=== PATIENT | female | born 1995 | race Caucasian/White ===

== ENCOUNTER 2023-01-05 08:54 | Emergency (ER) | payer MEDICAID, SELFPAY ==
[2023-01-05] VITALS (7 sets, daily range): BP systolic 118–130; BP diastolic 72–82; PULSE 98; RESP 18; TEMP 36.6–36.7; O2SAT 97–100; BMI 33.7
--- NOTE | 2023-01-05 09:04 | SUR.HOLD ---
PT STATES THAT SHE HAS HAD NAUSEA, VOMITING, DIARRHEA, AND ASSOCIATED ABDOMINAL PAIN THAT STARTED AT 2 AM THIS MORNING. PT DENIES URINARY ISSUES OR D/T TUBAL LIGATION.
--- NOTE | 2023-01-05 09:07 | ED_ITS ---
HPI - Nausea/Vomiting/Diarrhea General Chief complaint: Nausea/Vomiting/Diarrhea Stated complaint: NAUSEA Time Seen by Provider: 01/05/23 08:56 Source: patient Mode of arrival: walk-in Limitations: no limitations History of Present Illness HPI Narrative: 27-year-old female presents to the emergency department for nausea vomiting and diarrhea. It started in the pharmacist hours today. Her boyfriend and her daughter recently had similar circumstances. She has not had hematemesis or fever. Related Data Previous Rx's Medication Instructions Recorded ondansetron 4 mg disintegrating 4 mg PO Q6H PRN nausea and 01/05/23 tablet vomiting #20 tabs Allergies Allergy/AdvReac Type Severity Reaction Status Date / Time morphine Allergy Unknown Verified 01/05/23 08:58 shellfish derived Allergy Unknown Verified 01/05/23 08:58 Review of Systems ROS Narrative A ten point review of systems is negative except as noted above. PFSH PFSH Social History Smoking status: Current every day smoker Exam Narrative Exam Narrative: Nurses note and vital signs reviewed and patient is not hypoxic. General: The patient appears well and in no apparent distress. Patient is resting comfortably on cart. Skin: Warm, dry, no pallor noted. There is no rash noted. Head: Normocephalic, atraumatic Eye: Normal conjunctiva, no drainage Ears, Nose, Mouth, and Throat: oral mucosa is moist. Nares patent. Cardiovascular: Regular Rate and Rhythm Respiratory: Patient is in no distress, no accessory muscle use, lungs are clear to auscultation, no wheezing, rales or rhonchi Back: non-tender GI: soft and nontender, nondistended Musculoskeletal: The patient has no evidence of calf tenderness, no pitting edema, symmetrical pulses noted bilaterally Neurological: A&O, normal speech Psychiatric: Cooperative Constitutional Vital Signs, click to edit/add: Last Vital Signs Temp 97.8 F 01/05/23 08:58 Pulse 98 H 01/05/23 08:58 Resp 18 01/05/23 08:58 BP 130/82 01/05/23 08:58 Pulse Ox 98 01/05/23 08:58 O2 Del Method Room Air 01/05/23 08:58 Course Vital Signs Vital signs: Vital Signs Temperature 97.8 F 01/05/23 08:58 Pulse Rate 98 H 01/05/23 08:58 Respiratory Rate 18 01/05/23 08:58 Blood Pressure 130/82 01/05/23 08:58 Pulse Oximetry 98 01/05/23 08:58 Oxygen Delivery Method Room Air 01/05/23 08:58 Temperature 97.8 F 01/05/23 08:58 Pulse Rate 98 H 01/05/23 08:58 Respiratory Rate 18 01/05/23 08:58 Blood Pressure 130/82 01/05/23 08:58 Pulse Oximetry 98 01/05/23 08:58 Oxygen Delivery Method Room Air 01/05/23 08:58 MDM - Nausea/Vomiting/Diarrhea MDM Narrative Medical decision making narrative: WBC is eighteen thousand. Repeat examination at 10:15 AM shows no abdominal tenderness on palpation. I do not suspect appendicitis. She's feeling improved and is able to be discharged home. Treatment diagnosis and follow-up were discussed with the patient. Differential Diagnosis Differential diagnosis: Likely food poisoning, gastroenteritis and dehydration Lab Data Attestation: I reviewed the patient's lab results. Labs: Lab Results 01/05/23 Range/Units 09:20 WBC 18.7 H (4.0-11.0) 10^3/uL RBC 5.64 H (4.20-5.40) 10^6/uL Hgb 15.8 (12.0-16.0) g/dL Hct 49.3 H (36.0-48.0) % MCV 87.4 (81.0-99.0) fL MCH 28.0 (26.7-34.0) pg MCHC 32.0 (29.9-35.2) g/dL RDW 12.6 (11.0-15.0) % Plt Count 329 (150-450) 10^3/uL MPV 10.6 (9.5-13.5) fL Neut % (Auto) 92.0 H (43.0-75.0) % Lymph % (Auto) 3.8 L (20.5-60.0) % [place] % (Auto) 3.4 (1.7-12.0) % Eos % (Auto) 0.2 L (0.9-7.0) % Baso % (Auto) 0.2 (0.2-2.0) % Neut # (Auto) 17.2 H (1.4-6.5) 10^3/uL Lymph # (Auto) 0.7 L (1.2-3.8) 10^3/uL [place] # (Auto) 0.6 (0.3-0.8) 10^3/uL Eos # (Auto) 0.0 (0.0-0.7) 10^3/uL Baso # (Auto) 0.0 (0.0-0.1) 10^3/uL Abs Immat Gran (auto) 0.07 H (0.00-0.03) 10^3/uL Imm/Tot Granulo (auto) 0.4 (0.0-0.5) % Sodium 140 (136-145) mmol/L Potassium 4.0 (3.5-5.1) mmol/L Chloride 101 (98-107) mmol/L Carbon Dioxide 27.9 (21.0-32.0) mmol/L Anion Gap 15.1 BUN 14.0 (7.0-18.0) mg/dL Creatinine 0.76 (0.55-1.02) mg/dL Est GFR ( Amer) >60 (>=60) Est GFR (Non-Af Amer) >60 (>=60) BUN/Creatinine Ratio 18.4 Glucose 131 H (74-106) mg/dL Calcium 8.9 (8.5-10.1) mg/dL Serum HCG, Qual Negative (NEGATIVE) Discharge Plan Discharge Chief Complaint: Nausea/Vomiting/Diarrhea Clinical Impression: Nausea vomiting and diarrhea Patient Disposition: Home, Self-Care Time of Disposition Decision: 10:15 Condition: Good Mode of Transportation: Private Vehicle Prescriptions / Home Meds: New ondansetron 4 mg tablet,disintegrating 4 mg PO Q6H PRN (Reason: nausea and vomiting) Qty: 20 0RF Instructions: Acute Nausea and Vomiting (ED) Stand Alone Forms: Portal Instructions Referrals: Physician,Non-Staff, MD [Primary Care Provider] - 1 week
[2023-01-05] MEDS: 0.9 % SODIUM CHLORIDE 1,000 ML 1000 ML IV (09:22)
[2023-01-05] MEDS: ONDANSETRON PF 4 MG/2 ML VIAL IV (09:22)
[2023-01-05 09:37] LABS: Basophils Percent Auto 0.2 % (0.2-2.0); Eosinophils Percent Auto 0.2 % (0.9-7.0); Hematocrit 49.3 % (36.0-48.0); Hemoglobin 15.8 g/dL (12.0-16.0); Immature Granulocytes Abs Auto 0.07 10^3/uL (0.00-0.03); Immature Granulocytes Pct Auto 0.4 % (0.0-0.5); Lymphocytes Absolute Auto 0.7 10^3/uL (1.2-3.8); Lymphocytes Percent Auto 3.8 % (20.5-60.0); Mean Corpuscular Volume 87.4 fL (81.0-99.0); Mean Platelet Volume 10.6 fL (9.5-13.5); Monocytes Absolute Auto 0.6 10^3/uL (0.3-0.8); Monocytes Percent Auto 3.4 % (1.7-12.0); Neutrophils Absolute Auto 17.2 10^3/uL (1.4-6.5); Platelet Count 329 10^3/uL (150-450); Red Blood Count 5.64 10^6/uL (4.20-5.40); Red Cell Distribution Width 12.6 % (11.0-15.0); White Blood Count 18.7 10^3/uL (4.0-11.0)
[2023-01-05 09:42] LABS: Anion Gap 15.1; BUN Creatinine Ratio 18.4; Calcium 8.9 mg/dL (8.5-10.1); Carbon Dioxide 27.9 mmol/L (21.0-32.0); Chloride 101 mmol/L (98-107); Estimated GFR (African America >60 (>=60); Estimated GFR (Non-African Ame >60 (>=60); Glucose 131 mg/dL (74-106); Sodium 140 mmol/L (136-145)
[2023-01-05 09:43] LABS: HCG Qualitative NEGATIVE (NEGATIVE)
--- OUTSIDE RECORDS SUMMARY | 2023-02-10 18:52 | XMS_ITS | CCD ---
Author Name Unknown Address [address] [place] [address] Organization [facility] Care Team Providers Care Crusher Feeder Name Role Phone JJ, DR BRIANNA Velez Primary Care Unavailable ROSALINO, DR LUIS FERNANDO Garcai Admitting Unavailabl e AIDEECK, DR LUIS FERNANDO Garcia Attending Unavailabl e ROSALINO, DR LUIS FERNANDO Garcia Consulting Unavailabl e JJ, DR BRIANNA Velez Admitting Unavailable GARDNER, DR BRIANNA Velez Attending Unavailable GARDNER, DR BRIANNA Velez Primary Care Unavailable GARDNER, DR BRIANNA Velez Consulting Unavailable JJ, DR BRIANNA Velez Primary Care Unavailable ROSALINO, DR LUIS FERNANDO Garcia Consulting Unavailabl e REINECK, DR LUIS FERNANDO Garcia Admitting Unavailabl e REINECK, DR LUIS FERNANDO Garcia Attending Unavailabl e Allergies Allergy Classification Reported Allergen(s) Allergy Type Date of Onset Reaction(s) Facility (1 source) Morphine Drug Allergy 05-18-2020 [facility] (1 source) Shellfish Drug allergy (disorder) [facility] Problems Active Problems Problem Classification Problem Date Documented Da te Episodic/Chronic Genitourinary symptoms and ill-defined conditions (3 sources) Dysuria; Translations: [DYSURIA] Onset: 06-21-2021 Episodic Substance-related disorders (1 source) Nicotine dependence, cigarettes, uncomplicated; Translations: [NICOTINE DEPEND CIGARETTES UNCOMP] Onset: 06-24-2021 Chronic Unclassified (3 sources) ENCOUNT FOR SCREENING FOR COVID-19; Translations: [ENCOUNT FOR SCREENING FOR COVID-19] Onset: 11-15-2020 Urinary tract infections (1 source) Cystitis, unspecified without hematuria; Translations: [CYSTITIS UNS WITHOUT HEMATURIA] Onset: 06-24-2021 Episodic Past or Other Problems Problem Classification Problem Date Documented Da te Episodic/Chronic Other skin disorders (4 sources) Rash and other nonspecific skin eruption; Translations: [RASH OTH NONSPECIFIC SKIN ERUPTION] Onset: 08-18-2020 Episodic Unclassified (1 source) ENCOUNT FOR SCREENING FOR COVID-19; Translations: [ENCOUNT FOR SCREENING FOR COVID-19] Onset: 10-30-2020 Results Test Name Value Interpretation Reference Range Facil ity CULTURE URINEon 06-23-2021 CULTURE URINE Isolate 1 Escherichia coli >100,000 cfu/ml of ORGANISM 1 Escherichia coli ANTIBIOTIC M.I.C RX STATUS Ampicillin >=32 R F Ampicillin/Sulbactam >=32 R F Piperacillin/Tazobactam <=4 S F Cefazolin <=4 S F Ceftazidime <=1 S F Ceftriaxone <=1 S F Ertapenem <=0.5 S F Imipenem <=0.25 S F Amikacin <=2 S F Gentamicin <=1 S F Tobramycin <=1 S F Ciprofloxacin <=0.25 S F Levofloxacin <=0.12 S F Nitrofurantoin <=16 S F Trimethoprim/Sulfamethoxazole <=20 S F Normal T [facility] Comment on above: Performed By: #### U RCX #### [facility] [address] [place] [address] Dr. Dao Tran ER URINE PROFILEon 2 Bilirubin Ql (U) Negative Normal NEGATIVE [facility] Comment on above: Performed By: #### VITALY BERMAN UMICRO #### [facility] [address] [place] [address] Dr. Dao Tran Clarity (U) CLEAR Normal CLEAR [facility] Comment on above: Performed By: #### VITALY BERMAN UMICRO #### [facility] [address] [place] [address] Dr. Dao Tran Color (U) LT. YELLOW Normal YELLOW [facility] Comment on above: Performed By: #### VITALY BERMAN UMICRO #### [facility] [address] [place] [address] Dr. Dao Tran ERUAHD A micrscopic examina tion will be performed if indicated. Normal [facility] Comment on above: Performed By: #### VITALY BERMAN UMICRO #### [facility] [address] [place] [address] Dr. Dao Tran Glucose Ql (U) Negative Normal NEGATIVE [facility] Comment on above: Performed By: #### EDILSON BERMANU UMICRO #### [facility] [address] [address] [address] Dao Tran Hemoglobin Ql (U) MODERATE Abnormal NEGATIVE [facility] Comment on above: Performed By: #### Rosie RUR PREGU UMICRO #### [facility] [address] [address] [address] Dao Tran Ketones Ql (U) 40 mg/dl Abnormal NEGATIVE [facility] Comment on above: Performed By: #### VITALY BERMAN UMICRO #### [facility] [address] [address] [address] Dao Tran LEUKOCYTES LARGE Abnormal NEGATIVE [facility] Comment on above: Performed By: #### EDILSON BERMANU UMICRO #### [facility] [address] [address] [address] Dao Tran Nitrite Ql (U) Negative Normal NEGATIVE [facility] Comment on above: Performed By: #### VITALY BERMAN UMICRO #### [facility] [address] [address] [address] Dao Tran pH (U) 7.0 [pH] Normal 5-9 The [facility] Comment on above: Performed By: #### EDILSON BERMANU UMICRO #### [facility] [address] [address] [address] Dao Tran Protein (U) [Mass/Vol] 30 mg/dL Abnormal NEGATIVE/ TRA CE [facility] Comment on above: Performed By: #### VITALY BERMAN UMICRO #### [facility] [address] [address] [address] Dao Tran SPEC GRAVITY 1.010 Normal 1.005-<=1.025 The [facility] Comment on above: Performed By: #### Rosie STUART PREGU UMICRO #### [facility] [address] [address] [address] Dao Tran UR MICRO IND INDICATED Normal [facility] Comment on above: Performed By: #### E RUR PREGU, UMICRO #### [facility] [address] [place] [address] Dr. Dao Tran Urobilinogen Qn (U) 0.2 {Marianna'U}/dL Normal 0.2 - 1. 0 [facility] Comment on above: Performed By: #### E RUR, PREGU, UMICRO #### [facility] [address] [place] [address] Dr. Dao Tran URon 06-21-2021 , QUAL Negative Normal NEGATIVE [facility] Comment on above: Performed By: #### E RUR, PREGU, UMICRO #### [facility] [address] [place] [address] Dr. Dao Tran URINE MICROSCOPIC ONLYon BACTERIA TRACE Abnormal NONE SEEN The [facility] Comment on above: Performed By: #### E RUR, PREGU, UMICRO #### [facility] [address] [place] [address] Dr. Dao Tran Bacteria identified Cx Nom (U) INDICATED Normal [facility] Comment on above: Performed By: #### E RUR, PREGU, UMICRO #### [facility] [address] [place] [address] Dr. Dao Tran CAST NONE SEEN Normal NONE SEEN [facility] Comment on above: Performed By: #### E RUR, PREGU, UMICRO #### [facility] [address] [place] [address] Dr. Dao Tran Crystals LM Nom (Urine sed) NONE SEEN Normal NONE SEE N [facility] Comment on above: Performed By: #### E RUR, PREGU, UMICRO #### [facility] [address] [place] [address] Dr. Dao Tran Epithelial cells LM Ql (Urine sed) RARE Normal N ONE SEEN /RARE [facility] Comment on above: Performed By: #### E RUR, PREGU UMICRO #### [facility] [address] [address] [address] Dao Tran MUCOUS TRACE Abnormal NONE SEEN [facility] Comment on above: Performed By: #### E RUREDILSONU UMICRO #### [facility] [address] [address] [address] Dao Tran RBC 5-10 Abnormal 0-2 [facility] Comment on above: Performed By: #### E RUVITALY Hutchison UMICRO #### [facility] [address] [address] [address] Dao Tran WBC 50-75 Abnormal NONE SEEN [facility] Comment on above: Performed By: #### E RUVITALY Hutchison UMICRO #### [facility] [address] [place] [address] Dr. Dao Tran Covid-19 PCR (CVDTB)on SARS-CoV-2 (COVID-19) RNA EDGAR+probe Ql (Unsp spec) Not detected Normal NOT DETECTED The [facility] Comment on above: Result Comment: This test is not yet approved or cleared by the [place] FDA. When there are no FDA-approved or cleared tests available, and other criteria are met, FDA can make tests available under an emergency access mechanism called an Emergency Use Authorization (EUA). The EUA for this test is supported by the [employer] of Health and Human Service's (HHS's) declaration that circumstances exist to justify the emergency use of in vitro diagnostics for the detection and/or diagnosis of the virus that causes COVID-19. This EUA will remain in effect (meaning this test can be used) for the duration of the COVID-19 declaration justifying emergency of IVDs, unless it is terminated or revoked by FDA (after which the test may no longer be used). When diagnostic testing is negative, the possibility of a false negative should be considered in the context of a patient's recent exposures and the presence of clinical signs and symptoms consistent with SARS-CoV-2. Performed By: #### C VDTBH #### [facility] [address] [place], [place] [id number] Zora Naidu Encounters Encounter Date Encounter Type Care Provider Facility Start: 06-21-2021 End: 06-21-[address] BRIANNA GARDNER Facility:[facility] Start: 10-30-2020 End: 10-31-[address] BRIANNA GARDNER Facility:[facility] Start: 08-18-2020 End: 08-18-[address] BRIANNA GARDNER Facility:[facility] Payers Date Payer Category Payer Unknown [id number] [id number] [id number] 1993 Unknown [id number] [id number] [id number] 1993 Unknown [id number] [id number] [id number] 1959 Unknown [id number] Summary Purpose Family History No Family History Records Found Advance Directives No Advanced Directives Records Found Additional Source Comments INFORMATION SOURCE (unrecogn ized section and content) DATE CREATED AUTHOR 06/24/2021 [facility] FOR RECORDS PERTAINING TO PATIENTS WHO ARE OR HAVE BEEN ENROLLED IN A CHEMICAL DEPENDENCY/SUBSTANCEABUSE PROGRAM, SOME INFORMATION MAY BE OMITTED. This clinical summary was aggregated from multiple sources. Caution should be exercised in using it in the provision of clinical care. This summary normalizes information from multiple sources, and as a consequence, information in this document may materially change the coding, format and clinical context of patient data. In addition, data may be omitted in some cases. CLINICAL DECISIONS SHOULD BE BASED ON THE PRIMARY CLINICAL RECORDS. [facility] [employer] provides no warranty or guarantee of the accuracy or completeness of information in this document.
== END 2023-01-05 10:28 | disposition home or self-care (01) ==
PROVIDERS: Emergency Provider Emergency Medicine
DX: R11.2 Nausea with vomiting, unspecified (principal); R19.7 Diarrhea, unspecified; F17.210 Nicotine dependence, cigarettes, uncomplicated
CPT/HCPCS: 36415; 80048; 84703; 85025; 96361; 96374; 99284

== ENCOUNTER 2023-02-17 14:41 | Emergency (ER) | payer MEDICAID, SELFPAY ==
[2023-02-17 14:47] VITALS: BP 117/73; PULSE 81; RESP 18; TEMP 36.7; O2SAT 98; BMI 35.5
--- NOTE | 2023-02-17 15:33 | ED.NECK1 ---
HPI - Neck Pain/Injury General Chief Complaint: Neck Pain/Injury Stated Complaint: NECK PAIN Time Seen by Provider: 02/17/23 15:00 Source: patient Mode of arrival: walk-in Limitations: no limitations History of Present Illness HPI Narrative: last night around 10pm the patient developed pain in the lower left neck. 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 She woke this morning and the pain was increased. She took Tylenol this morning. She said that as the day progressed the pain became sharper and worse. No recent fall or injury. No prior history of chronic neck pain. No cough, fever, chills, sore throat or ear pain. Related Data Previous Rx's Medication Instructions Recorded ondansetron 4 mg disintegrating 4 mg PO Q6H PRN nausea and 01/05/23 tablet vomiting #20 tabs methocarbamol 750 mg tablet 750 mg PO Q6H PRN pain #30 tabs 02/17/23 nabumetone 750 mg tablet 750 mg PO BID PRN pain #14 tabs 02/17/23 Allergies Allergy/AdvReac Type Severity Reaction Status Date / Time morphine Allergy Unknown Verified 02/17/23 14:50 shellfish derived Allergy Unknown Verified 02/17/23 14:50 PFSH PFSH Social History Smoking status: Current every day smoker Exam Narrative Exam Narrative: Nurses notes and vital signs reviewed and patient is not hypoxic. afebrile General: Well-appearing and in no apparent distress. Skin: Warm, dry, no pallor noted. No rash to neck. Head: Normocephalic, atraumatic. Neck: Supple, no meningismus. No cervical lymphadenopathy. Soft tissue tenderness along the posterolateral aspect of the left neck with tenderness extending into the superior aspect of the trapezius as well as down through the medial aspect of the trapezius to approximately the upper thoracic area. Eye: Pupils are equal, round and EOMI. No scleral icterus. Cardiovascular: Regular Rate and Rhythm without murmur, gallop or rub. Respiratory: No accessory muscle use or respiratory distress. Lungs are clear to auscultation, no wheezing, rales or rhonchi Back: No midline thoracic or lumbar vertebral tenderness. Musculoskeletal: normal upper extremity ROM, no upper extremity edema/swelling Neurological: A&O x4. No cranial nerve dysfunction observed. No truncal ataxia. Moves all extremities. Sensation intact. Psychiatric: Cooperative and interactive. Normal mood and affect. Constitutional Vital Signs, click to edit/add: Last Vital Signs Temp 98.0 F 02/17/23 14:47 Pulse 81 02/17/23 14:47 Resp 18 02/17/23 14:47 BP 117/73 02/17/23 14:47 Pulse Ox 98 02/17/23 14:47 O2 Del Method Room Air 02/17/23 14:47 Course Vital Signs Vital signs: Vital Signs Temperature 98.0 F 02/17/23 14:47 Pulse Rate 81 02/17/23 14:47 Respiratory Rate 18 02/17/23 14:47 Blood Pressure 117/73 02/17/23 14:47 Pulse Oximetry 98 02/17/23 14:47 Oxygen Delivery Method Room Air 02/17/23 14:47 Temperature 98.0 F 02/17/23 14:47 Pulse Rate 81 02/17/23 14:47 Respiratory Rate 18 02/17/23 14:47 Blood Pressure 117/73 02/17/23 14:47 Pulse Oximetry 98 02/17/23 14:47 Oxygen Delivery Method Room Air 02/17/23 14:47 MDM - Neck Pain/Injury MDM Narrative Medical decision making narrative: Patient received IM Solu-Medrol. She was discharged home with prescriptions for Relafen and Robaxin to treat her acute trapezius strain. Discharge Plan Discharge Chief Complaint: Neck Pain/Injury Clinical Impression: Acute neck pain, Strain of left trapezius muscle Patient Disposition: Home, Self-Care Time of Disposition Decision: 15:38 Prescriptions / Home Meds: New nabumetone 750 mg tablet 750 mg PO BID PRN (Reason: pain) Qty: 14 0RF methocarbamol 750 mg tablet 750 mg PO Q6H PRN (Reason: pain) Qty: 30 0RF No Action ondansetron 4 mg tablet,disintegrating 4 mg PO Q6H PRN (Reason: nausea and vomiting) Qty: 20 0RF Instructions: Muscle Strain (ED), Acute Neck Pain (ED) Stand Alone Forms: Portal Instructions Referrals: Physician,Non-Staff, MD [Primary Care Provider] - 1 week
[2023-02-17] MEDS: METHYLPREDNISOLONE SOD SUCC PF 125 MG/2 ML VIAL IM (15:47)
== END 2023-02-17 15:57 | disposition home or self-care (01) ==
PROVIDERS: Emergency Provider Emergency Medicine
DX: S46.812A Strain of other muscles, fascia and tendons at shoulder and upper arm level, left arm, initial encounter (principal); M54.2 Cervicalgia; F17.210 Nicotine dependence, cigarettes, uncomplicated; X58.XXXA Exposure to other specified factors, initial encounter
CPT/HCPCS: 96372; 99284; J2930

== ENCOUNTER 2023-05-03 10:52 | Emergency (ER) | payer MEDICAID, SELFPAY ==
[2023-05-03 10:55] VITALS: BP 137/82; PULSE 76; RESP 16; TEMP 36.8; O2SAT 95; BMI 36.7
--- OUTSIDE RECORDS SUMMARY | 2023-05-03 11:00 | XMS_ITS | CCD ---
Author Name Unknown Address [address] [facility] [address] [place] [address] Organization [facility] Care Team Providers Care Luncheonette Manager Name Role Phone JJ, DR BRIANNA Velez Primary Care Unavailable ROSALINO, DR LUIS FERNANDO Garcia Admitting Unavailabl e AIDEECK, DR LUIS FERNANDO Garcia Attending Unavailabl e ADIEECK, DR LUIS FERNANDO Garcia Consulting Unavailabl e JJ, DR BRIANNA Velez Admitting Unavailable GARDNER, DR BRIANNA Velez Attending Unavailable GARDNER, DR BRIANNA Velez Primary Care Unavailable GARDNER, DR BRIANNA Velez Consulting Unavailable JJ, DR BRIANNA Velez Primary Care Unavailable ROSALINO, DR LUIS FERNANDO Garcia Consulting Unavailabl e ROSALINO, DR LUIS FERNANDO Garcia Admitting Unavailabl e REINECK, DR LUIS FERNANDO Garcia Attending Unavailmoreno e Nathaniel Esparza Attending Unavailable Nathaniel Esparza Attending Unavailable Nathaniel Esparza Admitting Unavailable Nathaniel Esparza Attending Unavailable Niharika Blackwell Attending Unavailable Allergies Allergy Classification Reported Allergen(s) Allergy Type Date of Onset Reaction(s) Facility (2 sources) Morphine; Translations: [morphine] Drug Allergy 05-18-2020 [facility] Repository (2 sources) Shellfish; Translations: [shellfish] Drug allergy (disorder) [facility] Repository Problems Active Problems Problem Classification Problem [...] Name Value Interpretation Reference Range Facil ity CBC w/ Auto Diffon 4 Basophils/100 WBC (Bld) 0.7 % Normal 0.0-2.0 [facility] Comment on above: Performed By: #### 5 [id number], 2404587, 3599479, 5768088, 29619229, 4540783, 88280877 #### [facility] [address] [place] [address] Basophils/Leukocyte s Auto (Bld) [Pure # fraction] 0.0 E9/L Normal 0.0-0.2 [facility] Comment on above: Performed By: #### 5 [id number], 1564205, 3122131, 8360307, 79793998, 8687748, 13381385 #### [facility] [address] [place] [address] Eosinophils (Bld) [#/Vol] 0.1 E9/L Normal 0.0-0.5 [facility] Comment on above: Performed By: #### 5 10835769, 4768591, 0640889, 0788688, 19213152, 9679171, 38488119 #### [facility] [address] [place] [address] Eosinophils/100 WBC (Bld) 1.4 % Normal 0.0-8.0 [facility] Comment on above: Performed By: #### 5 18085882, 8677238, 2439326, 1001920, 45964496, 6251473, 15129436 #### [facility] [address] [place] [address] Erythrocyte distribution width (RBC) [Ratio] 14.4 % High 10.9-14.2 [facility] Comment on above: Performed By: #### 5 42926957, 5760533, 8573268, 8563260, 32704319, 6527751, 29348884 #### [facility] [address] [place] [address] Hematocrit (Bld) [Volume fraction] 41.0 % Normal 34.0-46.0 [facility] Comment on above: Performed By: #### 5 [id number], 3187190, 4524095, 9582059, 95468162, 5324676, 70262116 #### [facility] [address] [place] [address] Hemoglobin (Bld) [Mass/Vol] 13.4 g/dL Normal 12.0-16.0 [facility] Comment on above: Performed By: #### 5 48126647, 3313248, 5179427, 9078059, 66475450, 5490082, 91747793 #### [facility] [address] [place] [address] Lymphocytes (Bld) [#/Vol] 1.8 E9/L Normal 1.0-4.0 [facility] Comment on above: Performed By: #### 5 41138944, 8238167, 8817684, 5131639, 38762495, 8571704, 89428536 #### [facility] [address] [place] [address] Lymphocytes/100 WBC (Bld) 29.9 % Normal 14.0-50.0 [facility] Comment on above: Performed By: #### 5 19425003, 7177260, 5948600, 0950409, 04668736, 7782618, 08959258 #### [facility] [address] [place] [address] MCH (RBC) [Entitic mass] 27.4 pg Normal 27.0-34.0 [facility] Comment on above: Performed By: #### 5 92663150, 0958242, 3145980, 2177912, 57930650, 0159979, 54836468 #### [facility] [address] [place] [address] MCHC (RBC) [Mass/Vol] 32.7 g/dL Normal 31.4-36.0 [facility] Comment on above: Performed By: #### 5 64365768, 7767539, 9750255, 8696776, 46235109, 7546684, 99320225 #### [facility] [address] [place] [address] MCV (RBC) [Entitic vol] 83.6 fL Normal 80.0-100.0 [facility] Comment on above: Performed By: #### 5 83994468, 2471008, 6390287, 6700346, 92484190, 4135936, 07222197 #### [facility] [address] [place] [address] Monocytes (Bld) [#/Vol] 0.5 E9/L Normal 0.2-1.0 [facility] Comment on above: Performed By: #### 5 32681471, 1477518, 6542859, 3028335, 10288108, 6513043, 85137277 #### [facility] [address] [place] [address] Neutrophils (Bld) [#/Vol] 3.6 E9/L Normal 2.0-7.5 [facility] Comment on above: Performed By: #### 5 80104850, 8657298, 9942318, 6791413, 21229881, 6658781, 68638502 #### [facility] [address] [place] [address] Neutrophils/100 WBC (Bld) 60.1 % Normal 36.0-75.0 [facility] Comment on above: Performed By: #### 5 35088995, 3968883, 9416236, 3754983, 43508019, 7336809, 11779529 #### [facility] [address] [place] [address] Platelet 288.0 E9/L Normal 150.0-500.0 [facility] Comment on above: Performed By: #### 5 70487924, 0333294, 9986133, 4059299, 93789008, 3581127, 52648227 #### [facility] [address] [place] [address] Platelet mean volume (Bld) [Entitic vol] 9.4 fL Normal 6.4-10.8 [facility] Comment on above: Performed By: #### 5 50473199, 2266120, 5584266, 4312910, 76968046, 6563820, 52513304 #### [facility] [address] [place], [place] [address] RBC (Bld) [#/Vol] 4.9 E12/L Normal 4.3-5.9 [facility] Comment on above: Performed By: #### 5 45858941, 1893100, 6070946, 2105206, 97611807, 2588402, 61238714 #### [facility] [address] [place] [address] WBC corrected for nucl RBC Auto (Bld) [#/Vol] 6.0 E9/L Normal 4.0-11.0 [facility] Comment on above: Performed By: #### 5 94960521, 6301688, 9078628, 3307974, 01378699, 5621246, 03081222 #### [facility] [address] [place], [place] [address] CMPon 04-28-2023 Albumin [Mass/Vol] 4.2 g/dL Normal 3.3-5.0 [facility] Comment on above: Performed By: #### 5 40269309, 8057442, 8195447, 3628592, 34319705, 2917409, 87611834 #### [facility] [address] [place] [address] Albumin/Globulin (S) [Mass conc ratio] 1.5 Normal 1.1-2.2 [facility] Comment on above: Performed By: #### 5 53247698, 8437820, 2224716, 1121776, 60453467, 9952153, 35085315 #### [facility] [address] [place] [address] ALP [Catalytic activity/Vol] 66 Int._Unit/L Normal 21-98 [facility] Comment on above: Performed By: #### 5 53988117, 4990467, 7154884, 5344298, 76470107, 1891655, 66492823 #### [facility] [address] [place] [address] ALT No additional P-5'-P [Catalytic activity/Vol] 18 Int._Unit/L Normal 6-46 [facility] Comment on above: Performed By: #### 5 88736162, 3752679, 4042504, 5806386, 24058995, 9611136, 34772018 #### [facility] [address] [place] [address] Anion gap [Moles/Vol] 11 mmol/L Normal 6-16 [facility] Comment on above: Performed By: #### 5 33488626, 9979368, 3112273, 0647434, 71388375, 1017877, 59536733 #### [facility] [address] [place] [address] AST [Catalytic activity/Vol] 14 Int._Unit/L Normal 5-43 [facility] Comment on above: Performed By: #### 5 25228777, 6246703, 7147890, 1275560, 61442386, 1754253, 21487667 #### [facility] [address] [place] [address] Bilirubin [Mass/Vol] 0.3 mg/dL Normal 0.0-1.1 [facility] Comment on above: Performed By: #### 5 60830401, 4262515, 0306419, 9227743, 21241240, 0202587, 81835772 #### [facility] [address] [place] [address] Calcium [Mass/Vol] 8.8 mg/dL Low 8.9-11.1 [facility] Comment on above: Performed By: #### 5 10709356, 4231065, 2748952, 4937346, 70895941, 2930060, 27266846 #### [facility] [address] [place] [address] Chloride [Moles/Vol] 109 mmol/L Normal 101-111 [facility] Comment on above: Performed By: #### 5 18730128, 6518510, 9001176, 6942694, 75260825, 1012323, 41522354 #### [facility] [address] [place] [address] CO2 [Moles/Vol] 20 mmol/L Low 21-31 [facility] Comment on above: Performed By: #### 5 65974739, 5562383, 4872369, 8294210, 67319798, 7735885, 26111062 #### [facility] [address] [place] [address] Creatinine [Mass/Vol] 0.6 mg/dL Normal 0.5-1.3 [facility] Comment on above: Performed By: #### 5 20325657, 4516893, 9051787, 6288876, 50166433, 6573672, 81918774 #### [facility] [address] [place] [address] Globulin (S) [Mass/Vol] 2.8 g/dL Normal 1.4-4.0 [facility] Comment on above: Performed By: #### 5 98905805, 7833825, 2990855, 0995248, 96134521, 9793857, 90484111 #### [facility] [address] [place] [address] Glucose [Mass/Vol] 95 mg/dL Normal 55-199 [facility] Comment on above: Performed By: #### 5 39236356, 4431763, 4921790, 8591190, 39549623, 7269846, 05750217 #### [facility] [address] [place] [address] Potassium [Moles/Vol] 4.2 mmol/L Normal 3.5-5.3 [facility] Comment on above: Performed By: #### 5 67428485, 6120765, 3604372, 5340245, 08238877, 4778988, 63860598 #### [facility] [address] [place] [address] Protein [Mass/Vol] 7.0 g/dL Normal 6.0-7.8 [facility] Comment on above: Performed By: #### 5 17688933, 4328441, 6044288, 2619969, 97131700, 5433016, 09137445 #### [facility] [address] [place] [address] Sodium [Moles/Vol] 136 mmol/L Normal 135-145 [facility] Comment on above: Performed By: #### 5 91828878, 6663500, 3893719, 1518921, 47893424, 4861808, 41953735 #### [facility] [address] [place] [address] Urea nitrogen [Mass/Vol] 7 mg/dL Normal 5-21 [facility] Comment on above: Performed By: #### 5 91333784, 7277848, 3798112, 7688878, 11946551, 3203849, 51685609 #### [facility] [address] [place] [address] Urea nitrogen/Creatinine [Mass ratio] 12 No Units Normal 10-20 [facility] Comment on above: Performed By: #### 5 94091441, 4290889, 8809079, 1269124, 16604680, 4406691, 07189998 #### [facility] [address] [place] [address] [facility] Medicine Office/Clini c Noteon 04-28-2023 Family Medicine Office/Clinic Note HPI Staff Pearson is a 27 year old female [facility] Establish Care: History:anxiety,bipol ar, depression, anemia, HSV2, sleep disorder Any previous diagnosis: Anemia History of seeing any specialist: When was your last doctors visit: early 2022 Last provider: [facility] Any recent labs: last year Health Maintenance UTD: Colonoscopy: none Mammogram: had one, FCBD Pelvic/Pap: 2022 [place] flu: refused Acute: lump inside left wrist, painful Current issues/complaints: Wanting to R/O MS she feels legs got weaker last 2 years, hands don't close well, had aunt with it and she's concerned Also she is anemic and hopes that might be the weakness and issues she's having. Supposed to be on iron but when moved from [place] didn't get meds to continue treating the anemia ( was on ferrous sulfate 325mg) History of Present Illness - Here to establish care. Hx of anemia, not being treated Uses [facility] for mental health Concerned for all for extremities being numb and weak. Physical Exam Vitals & Measurements T: 36.9 ?C(Temporal Artery) HR: 76(Peripheral) RR: 16 BP: 124/82 SpO2: 98% HT: 67 in HT: 169.6 cm WT: 103.7 kg WT: 228.14 lb BMI: 36.05 General: alert, no acute distress ENMT: oral mucosa moist, Cardiovascular: regular rate and rhythm, normal peripheral perfusion Respiratory: Lungs CTA, respirations non labored Extremities: no deformity, no trauma Neurological: oriented x 4, LOC appropriate for age, CN II-XII intact, motor strength equal & normal bilaterally, speech normal, Unsure if there is generalized weakness with drywall finishing foreman strength. Abdomen: Soft, Nontender, Non-distended, + BS Assessment/Plan 1. Bipolar disorder, unspecified (F31.9: Bipolar disorder, unspecified) - Not on meds. - Pt states she is controlled but having anger issues again. - Would like counseling Ordered: CBC w/ Auto Diff Comprehensive Metabolic Panel EMG Bilateral Lower Extremity (BLE) EMG Bilateral Upper Extremity (BUE) [place] [facility] Iron Level TSH With T4fr Reflex Vitamin D 25 Hydroxy 2. Depression (F32.A: Depression, unspecified) - As above - Uses [facility] for this Ordered: CBC w/ Auto Diff Comprehensive Metabolic Panel EMG Bilateral Lower Extremity (BLE) EMG Bilateral Upper Extremity (BUE) [place] [facility] [place] Ambulatory Referral Iron Level TSH With T4fr Reflex Vitamin D 25 Hydroxy 3. Anxiety (F41.9: Anxiety disorder, unspecified) - As above Ordered: CBC w/ Auto Diff Comprehensive Metabolic Panel EMG Bilateral Lower Extremity (BLE) EMG Bilateral Upper Extremity (BUE) [place] [facility] [place] Ambulatory Referral Iron Level TSH With T4fr Reflex Vitamin D 25 Hydroxy 4. Vitamin D deficiency (E55.9: Vitamin D deficiency, unspecified) - Will check levels today Ordered: CBC w/ Auto Diff Comprehensive Metabolic Panel EMG Bilateral Lower Extremity (BLE) EMG Bilateral Upper Extremity (BUE) [place] [facility] Ambulatory Referral Iron Level TSH With T4fr Reflex Vitamin D 25 Hydroxy 5. Numbness and tingling (R20.0: Anesthesia of skin) - Unsure is this is related to the anemia - Being in all 4 extremities, we will do an EMG Ordered: CBC w/ Auto Diff Comprehensive Metabolic Panel EMG Bilateral Lower Extremity (BLE) EMG Bilateral Upper Extremity (BUE) Fer[place]in [facility] [place] Ambulatory Referral Iron Level TSH With T4fr Reflex Vitamin D 25 Hydroxy 6. Sleep disorder (G47.9: Sleep disorder, unspecified) - Stable Ordered: CBC w/ Auto Diff Comprehensive Metabolic Panel Ferritin Iron Level TSH With T4fr Reflex Vitamin D 25 Hydroxy 7. Herpes simplex type 2 infection (B00.9: Herpesviral infection, unspecified) - No outbreak but found on blood test Ordered: CBC w/ Auto Diff Comprehensive Metabolic Panel Ferritin Iron Level TSH With T4fr Reflex Vitamin D 25 Hydroxy 8. BMI 36.0-36.9,adult (Z68.36: Body mass index [BMI] 36.0-36.9, adult) - Bmi education given Ordered: Body Mass Index (BMI) documented 3008F CBC w/ Auto Diff Comprehensive Metabolic Panel Current tobacco smoker 1034F Ferritin Influenza immunization status assessed 1030F Iron Level Most recent diastolic blood pressure 80-89 mm Hg 3079F Systolic BP <130 mm Hg (Most Recent) 3074F TSH With T4fr Reflex Vitamin D 25 Hydroxy 9. Class 1 obesity due to excess calories in adult (E66.09: Other obesity due to excess calories) - Diet and exercise advised Ordered: Body Mass Index (BMI) documented 3008F CBC w/ Auto Diff Comprehensive Metabolic Panel Current tobacco smoker 1034F Ferritin Influenza immunization status assessed 1030F Iron Level Most recent diastolic blood pressure 80-89 mm Hg 3079F Systolic BP <130 mm Hg (Most Recent) 3074F TSH With T4fr Reflex Vitamin D 25 Hydroxy 10. Vaping-related disorder (U07.0: Vaping-related disorder) - Please stop vaping Orde (more content not included)... Normal [facility] Comment on above: Result Comment: Elec tronically Signed By: Isaias SHEEHAN, Nathaniel Everett\.br\Date and Time Signed: 04/28/23 10:10 EST Ferritinon 04-28-2023 Ferritin [Mass/Vol] 12 ng/mL Normal 11-307 [facility] Comment on above: Performed By: #### 5 [id number], 2347558, 3142607, 1212004, 57727383, 8885726, 18391469 #### [facility] [address] [place] [address] Formson 04-28-2023 Forms [id number] Normal [facility] Ironon 04-28-2023 Iron [Mass/Vol] 114 microgram/dL Normal 35-153 [facility] Comment on above: Performed By: #### 5 15448418, 0214578, 1779763, 4143279, 89988026, 0491419, 96158408 #### [facility] [address] [place] [address] Patient Educationon 04-28-19 24 Patient Education Nutrition BMI for Adults What is BMI? Body mass index (BMI) is a number that is calculated from a person's weight and height. BMI can help estimate how much of a person's weight is composed of fat. BMI does not measure body fat directly. Rather, it is an alternative to procedures that directly measure body fat, which can be difficult and expensive. BMI can help identify people who may be at higher risk for certain medical problems. What are BMI measurements used for? BMI is used as a screening tool to identify possible weight problems. It helps determine whether a person is obese, overweight, a healthy weight, or underweight. BMI is useful for: ? Identifying a weight problem that may be related to a medical condition or may increase the risk for medical problems. ? Promoting changes, such as changes in diet and exercise, to help reach a healthy weight. BMI screening can be repeated to see if these changes are working. How is BMI calculated? BMI involves measuring your weight in relation to your height. Both height and weight are measured, and the BMI is calculated from those numbers. This can be done either in [place] or metric measurements. Note that charts and online BMI calculators are available to help you find your BMI quickly and easily without having to do these calculations yourself. To calculate your BMI in [place] measurements: 1. Measure your weight in pounds (lb). 2. Multiply the number of pounds by 703. ? For example, for a person who weighs 180 lb, multiply that number by 703, which equals 126,540. 3. Measure your height in inches. Then multiply that number by itself to get a measurement called inches squared. ? For example, for a person who is 70 inches tall, the inches squared measurement is 70 inches x 70 inches, which equals 4,900 inches squared. 4. Divide the total from step 2 (number of lb x 703) by the total from step 3 (inches squared): 126,540 ? 4,900 = 25.8. This is your BMI. To calculate your BMI in metric measurements: 1. Measure your weight in kilograms (kg). 2. Measure your height in meters (m). Then multiply that number by itself to get a measurement called meters squared. ? For example, for a person who is 1.75 m tall, the meters squared measurement is 1.75 m x 1.75 m, which is equal to 3.1 meters squared. 3. Divide the number of kilograms (your weight) by the meters squared number. In this example: 70 ? 3.1 = 22.6. This is your BMI. What do the results mean? BMI charts are used to identify whether you are underweight, normal weight, overweight, or obese. The following guidelines will be used: ? Underweight: BMI less than 18.5. ? Normal weight: BMI between 18.5 and 24.9. ? Overweight: BMI between 25 and 29.9. ? Obese: BMI of 30 or above. Keep these notes in mind: ? Weight includes both fat and muscle, so someone with a muscular build, such as an athlete, may have a BMI that is higher than 24.9. In cases like these, BMI is not an accurate measure of body fat. ? To determine if excess body fat is the cause of a BMI of 25 or higher, further assessments may need to be done by a health care provider. ? BMI is usually interpreted in the same way for men and women. Where to find more information For more information about BMI, including tools to quickly calculate your BMI, go to these websites: ? Centers for Disease Control and Prevention: www.cdc.gov ? [place] Heart Association: www.heart.org ? National Heart, Lung, and Blood [place]: www.nhlbi.nih.gov Summary ? Body mass index (BMI) is a number that is calculated from a person's weight and height. ? BMI may help estimate how much of a person's weight is composed of fat. BMI can help identify those who may be at higher risk for certain medical problems. ? BMI can be measured using [place] measurements or metric measurements. ? BMI charts are used to identify whether you are underweight, normal weight, overweight, or obese. This information is not intended to replace advice given to you by your health care provider. Make sure you discuss any questions you have with your health care provider. Document Revised: 11/02/2019 Document Reviewed: 09/09/2019 [employer] Patient Education ? 2022 [employer] Normal [facility] TSH With T4fr Reflexon 04-27 TSH Qn 1.55 m[IU]/L Normal 0.34-5.60 [facility] Comment on above: Performed By: #### 5 [id number], 0849957, 4521913, 9141534, 61217636, 4297726, 73791381 #### [facility] [address] [place] [address] Vitamin D 25 Hydroxyon 04-27 25-hydroxyvitamin D3 [Mass/Vol] 14.3 ng/mL Low 30.0-100.0 [facility] Comment on above: Performed By: #### 5 [id number], 1347946, 2612441, 9339126, 75299167, 7135079, 00574482 #### [facility] [address] [place] [address] eGFRon 04-28-2023 eGFR 124 mL/min/1.73 m2 Normal >=59 [facility] Comment on above: Order Comment: Order added by Discern Expert. Performed By: #### 5 53213850, 6938295, 2668437, 9452905, 19382011, 3182280, 92986089 #### [facility] [address] [place] [address] CULTURE URINEon 06-23-2021 CULTURE URINE Isolate 1 Escherichia coli >100,000 cfu/ml of ORGANISM 1 Escherichia coli ANTIBIOTIC M.I.C RX STATUS Ampicillin >=32 R F Ampicillin/Sulbactam >=32 R F Piperacillin/Tazobact am <=4 S F Cefazolin <=4 S F Ceftazidime <=1 S F Ceftriaxone <=1 S F Ertapenem <=0.5 S F Imipenem <=0.25 S F Amikacin <=2 S F Gentamicin <=1 S F Tobramycin <=1 S F Ciprofloxacin <=0.25 S F Levofloxacin <=0.12 S F Nitrofurantoin <=16 S F Trimethoprim/Sulfamet hoxazole <=20 S F Normal [facility] Comment on above: Performed By: #### U RCX #### [facility] [address] [place] [address] Dr. Dao Tran ER URINE PROFILEon 2 Bilirubin Ql (U) Negative Normal NEGATIVE [facility] Comment on above: Performed By: #### E VITALY STUART UMICRO #### [facility] [address] [place] [address] Dr. Dao Tran Clarity (U) CLEAR Normal CLEAR [facility] Comment on above: Performed By: #### E VITALY STUART UMICRO #### [facility] [address] [place] [address] Dr. Dao Tran Color (U) LT. YELLOW Normal YELLOW [facility] Comment on above: Performed By: #### E EDILSON STUARTU UMICRO #### [facility] [address] [place] [address] Dr. Dao Tran ERUAHD A micrscopic examination will be performed if indicated. Normal [facility] Comment on above: Performed By: #### E RUR, PREGU, UMICRO #### [facility] [address] [place] [address] Dr. Dao Tran Glucose Ql (U) Negative Normal NEGATIVE [facility] Comment on above: Performed By: #### E RUR, PREGU, UMICRO #### [facility] [address] [address] [address] Dao Tran Hemoglobin Ql (U) MODERATE Abnormal NEGATIVE [facility] Comment on above: Performed By: #### E RUR, PREGU, UMICRO #### [facility] [address] [place] [address] Dr. Dao Tran Ketones Ql (U) 40 mg/dl Abnormal NEGATIVE [facility] Comment on above: Performed By: #### E RUR, PREGU, UMICRO #### [facility] [address] [place] [address] Dr. Dao Tran LEUKOCYTES LARGE Abnormal NEGATIVE [facility] Comment on above: Performed By: #### E RUR, PREGU, UMICRO #### [facility] [address] [place] [address] Dr. Dao Tran Nitrite Ql (U) Negative Normal NEGATIVE [facility] Comment on above: Performed By: #### E RUR, PREGU, UMICRO #### [facility] [address] [place] [address] Dr. Dao Tran pH (U) 7.0 [pH] Normal 5-9 [facility] Comment on above: Performed By: #### E RUR, PREGU, UMICRO #### [facility] [address] [address] [address] Dao Tran Protein (U) [Mass/Vol] 30 mg/dL Abnormal NEGATIVE/ TRACE [facility] Comment on above: Performed By: #### E RUR, PREGU, UMICRO #### [facility] [address] [place] [address] Dr. Dao Tran SPEC GRAVITY 1.010 Normal 1.005-<=1.025 [facility] Comment on above: Performed By: #### E RUR, PREGU, UMICRO #### [facility] [address] [place] [address] Dr. Dao Tran UR MICRO IND INDICATED Normal [facility] Comment on above: Performed By: #### E RUR, PREGU, UMICRO #### [facility] [address] [place] [address] Dr. Dao Tran Urobilinogen Qn (U) 0.2 {Marianna'U}/dL Normal 0.2 - 1. 0 [facility] Comment on above: Performed By: #### E RUR, PREGU, UMICRO #### [facility] [address] [place] [address] Dr. Dao Tran URon 06-21-2021 , QUAL Negative Normal NEGATIVE [facility] Comment on above: Performed By: #### E RUR, PREGU, UMICRO #### [facility] [address] [place] [address] Dr. Dao Tran URINE MICROSCOPIC ONLYon BACTERIA TRACE Abnormal NONE SEEN [facility] Comment on above: Performed By: #### E RUR, PREGU, UMICRO #### [facility] [address] [place] [address] Dr. Dao Tran Bacteria identified Cx Nom (U) INDICATED Normal [facility] Comment on above: Performed By: #### E RUR, PREGU, UMICRO #### [facility] [address] [place] [address] Dr. Dao Tran CAST NONE SEEN Normal NONE SEEN [facility] Comment on above: Performed By: #### E RUR, PREGU, UMICRO #### [facility] [address] [place] [address] Dr. Dao Tran Crystals LM Nom (Urine sed) NONE SEEN Normal NONE SEEN [facility] Comment on above: Performed By: #### E RUR, PREGU, UMICRO #### [facility] [address] [place] [address] Dr. Dao Tran Epithelial cells LM Ql (Urine sed) RARE Normal NONE SEEN /RARE [facility] Comment on above: Performed By: #### E VITALY STUART UMICRO #### [facility] [address] [place] [address] Dr. Dao Tran MUCOUS TRACE Abnormal NONE SEEN [facility] Comment on above: Performed By: #### E VITALY STUART UMICRO #### [facility] [address] [address] [address] Dao Tran RBC 5-10 Abnormal 0-2 [facility] Comment on above: Performed By: #### E VITALY STUART UMICRO #### [facility] [address] [place] [address] Dr. Dao Tran WBC 50-75 Abnormal NONE SEEN [facility] Comment on above: Performed By: #### VITALY BERMAN UMICRO #### [facility] [address] [place] [address] Dr. Dao Tran Covid-19 PCR ([facility])on SARS-CoV-2 (COVID-19) RNA EDGAR+probe Ql (Unsp spec) Not detected Normal NOT DETECTED [facility] Comment on above: Result Comment: This test is not yet approved or cleared by the [place] FDA. When there are no FDA-approved or cleared tests available, and other criteria are met, FDA can make tests available under an emergency access mechanism called an Emergency Use Authorization (EUA). The EUA for this test is supported by the [place] of Health and Human Service's (HHS's) declaration [...] consistent with SARS-CoV-2. Performed By: #### C [facility] #### [facility] [address] [place], [place] [address] Zora Naidu Encounters Encounter Date Encounter Type Care Provider Facility Start: 06-02-2023 ambulatory Nathaniel Esparza Facility :[facility] Start: 05-19-2023 ambulatory Niharika Blackwell Facility :[facility] Start: 04-28-2023 ambulatory Nathaniel Esparza Facility:[facility] Start: 04-28-2023 End: 04-29-2023 ambulatory Nathaniel Esparza [facility] Start: 04-27-2023 ambulatory Nathaniel Esparza Facility:[facility] Start: 06-21-2021 End: 06-21-[address] BRIANNA GARDNER Facility:[facility] Start: 10-30-2020 End: 10-31-[address] BRIANNA GARDNER Facility:[facility] Start: 08-18-2020 End: 08-18-[address] BRIANNA GARDNER Facility: Payers Date Payer Category Payer Private Health Insurance [id number] 1995 Unknown [id number] 2.16.84 [id number] 1995 Unknown [id number] 2.16.84 [id number] 1995 Unknown [id number] 2.16.84 [id number] 1995 Unknown [id number] 2.16.8 [id number] 1993 Unknown [id number] 2.16.8 [id number] 1993 Unknown [id number] 2.16.8 [id number] 1993 Unknown [id number] 2.16.8 [id number] 1959 Unknown [id number] Summary Purpose Family History No Family History Records FoundNo Family History Records Found Advance Directives No Advanced Directives Records FoundNo Advanced Directives Records Found Additional Source Comments INFORMATION SOURCE (unrecogn ized section and content) DATE CREATED AUTHOR 06/24/2021 [facility] DATE CREATED AUTHOR AUTHOR'S KERAGALLO ATLYNN 04/29/2023 [facility] FOR RECORDS PERTAINING TO PATIENTS WHO [...] BE BASED ON THE PRIMARY CLINICAL RECORDS. [employer] provides no warranty or guarantee of the accuracy or completeness of information in this document.
--- NOTE | 2023-05-03 11:04 | ED.BACK1 ---
HPI - Back Pain/Injury General Chief Complaint: Back Pain/Injury Stated Complaint: BACK PAIN Time Seen by Provider: 05/03/23 10:59 Source: patient Mode of arrival: walk-in History of Present Illness HPI Narrative: 27-year-old female presents to the emergency department for lower back pain. She first hurt it 6 days ago when she was screwing a headboard into a frame. She did not fall or have anything hit her in her back. She had pain for a day or 2 and then it got better but now its come back. She indicates of the midline lower back. No weakness or numbness in her legs and the pain is severe. She had been to the chiropractor last week Related Data Previous Rx's Medication Instructions Recorded nabumetone 750 mg tablet 750 mg PO BID PRN pain #14 tabs 02/17/23 acetaminophen 300 mg-codeine 30 mg 1 tab PO Q6H PRN pain 5 days #20 05/03/23 tablet tabs cyclobenzaprine 10 mg tablet 10 mg PO TID PRN muscle spasm #20 05/03/23 tabs Allergies Allergy/AdvReac Type Severity Reaction Status Date / Time morphine Allergy Unknown Verified 02/17/23 14:50 shellfish derived Allergy Unknown Verified 02/17/23 14:50 Review of Systems ROS Narrative A ten point review of systems is negative except as noted above. PFSH PFSH Social History Smoking status: Current every day smoker Exam Narrative Exam Narrative: Nurses note and vital signs reviewed and patient is not hypoxic. General: The patient appears uncomfortable. Skin: Warm, dry, no pallor noted. There is no rash noted. Head: Normocephalic, atraumatic Eye: Normal conjunctiva, no drainage Ears, Nose, Mouth, and Throat: oral mucosa is moist. Nares patent. Cardiovascular: Regular Rate and Rhythm Respiratory: Patient is in no distress, no accessory muscle use, lungs are clear to auscultation, no wheezing, rales or rhonchi Back: No bruise or rash or focal area of tenderness to palpation GI: Soft and nontender Musculoskeletal: The patient has no evidence of calf tenderness, no pitting edema, symmetrical pulses noted bilaterally Neurological: A&O, normal speech Psychiatric: Cooperative Constitutional Vital Signs, click to edit/add: Last Vital Signs Temp 98.2 F 05/03/23 10:55 Pulse 74 05/03/23 12:09 Resp 16 05/03/23 12:09 BP 118/73 05/03/23 12:09 Pulse Ox 98 05/03/23 12:09 O2 Del Method Room Air 05/03/23 10:55 Course Vital Signs Vital signs: Vital Signs Temperature 98.2 F 05/03/23 10:55 Pulse Rate 76 05/03/23 10:55 Respiratory Rate 16 05/03/23 10:55 Blood Pressure 137/82 05/03/23 10:55 Pulse Oximetry 95 05/03/23 10:55 Oxygen Delivery Method Room Air 05/03/23 10:55 Temperature 98.2 F 05/03/23 10:55 Pulse Rate 74 05/03/23 12:09 Respiratory Rate 16 05/03/23 12:09 Blood Pressure 118/73 05/03/23 12:09 Pulse Oximetry 98 05/03/23 12:09 Oxygen Delivery Method Room Air 05/03/23 10:55 MDM - Back Pain/Injury MDM Narrative Medical decision making narrative: X-ray showed no acute findings. She is feeling improved after being given IM Toradol and Norflex. She will be treated symptomatically. Treatment diagnosis and follow-up were discussed with the patient. Differential Diagnosis Differential diagnosis: Likely strain of lumbar region and other (Compression fracture) Imaging Data Lumbar x-rays: Radiologist's impression: ITS Impressions Lumbar Spine X-Ray 05/03/23 11:23 IMPRESSION: 1. No acute bone abnormality or appreciable degenerative changes. Electronically authenticated by: HANK JIMENEZ Date: 05/03/2023 12:29 Discharge Plan Discharge Stand Alone Forms: Portal Instructions Chief Complaint: Back Pain/Injury Clinical Impression: Lumbar strain Patient Disposition: Home, Self-Care Time of Disposition Decision: 12:36 Condition: Good Mode of Transportation: Private Vehicle Prescriptions / Home Meds: New acetaminophen-codeine 300-30 mg tablet 1 tab PO Q6H PRN (Reason: pain) 5 Days Qty: 20 0RF cyclobenzaprine 10 mg tablet 10 mg PO TID PRN (Reason: muscle spasm) Qty: 20 0RF No Action nabumetone 750 mg tablet 750 mg PO BID PRN (Reason: pain) Qty: 14 0RF Instructions: Muscle Strain (ED), Back Pain (ED) Referrals: Physician,Non-Staff, MD [Primary Care Provider] - 1 week
[2023-05-03] MEDS: ORPHENADRINE 60 MG/ 2 ML VIAL IM (11:19)
[2023-05-03] MEDS: KETOROLAC TROMETHAMINE 60 MG/2 ML VIAL IM (11:19)
--- NOTE | 2023-05-03 11:23 | XR_ITS ---
[id number] Patient Name: JOSE BONDS MRN: [id number] date: 1995 Sex: F Assigned Patient Location: ER Current Patient Location: ER Accession/Order Number: [id number] Exam Date: 05/03/2023 11:45 Report Date: 05/03/2023 12:29 At the request of: RACHELE JOHNSON Procedure: XR lumbar spine 2-3V EXAMINATION: XR lumbar spine 2-3V HISTORY: Atraumatic pain COMPARISON: No relevant comparison available. FINDINGS: BONES: No significant spondylosis, scoliosis, fracture, or visible bony lesion. DISC SPACES: No significant disc height narrowing, subluxation, or endplate abnormality. PARASPINOUS: Negative. No paraspinous abnormality is seen. OTHER: Right upper quadrant surgical clips suggesting cholecystectomy. XR/XR lumbar spine 2-3V IMPRESSION: 1. No acute bone abnormality or appreciable degenerative changes. Electronically authenticated by: HANK JIMENEZ Date: 05/03/2023 12:29
[2023-05-03 12:09] VITALS: BP 118/73; PULSE 74; RESP 16; O2SAT 98
== END 2023-05-03 12:43 | disposition home or self-care (01) ==
PROVIDERS: Emergency Provider Emergency Medicine
DX: S39.012A Strain of muscle, fascia and tendon of lower back, initial encounter (principal); X50.9XXA Other and unspecified overexertion or strenuous movements or postures, initial encounter; F17.210 Nicotine dependence, cigarettes, uncomplicated; Z79.899 Other long term (current) drug therapy
CPT/HCPCS: 72100; 96372; 99284

== ENCOUNTER 2024-12-07 19:05 | Emergency (ER) | payer MEDICAID, SELFPAY ==
--- OUTSIDE RECORDS SUMMARY | 2024-12-07 19:10 | XMS_ITS | Encounter Summary ---
Author Organization [facility] Address [address] [place] [address] Care Team Providers Care Hydraulic Press Operator Name Role Phone Nathaniel Esparza MD Primary Care Provider [phone] Encounter Details Date Type Department Care Team (Late Contact Info) Description 10/13/2023 Orders Only [facility] [address] [facility] D Medical [address] [address] Keturah Sung MA Social History Tobacco Use Types Packs/Day Years Used Date Smoking Tobacco: Some Days Cigarettes 0.3 15 Smokeless Tobacco: Never Alcohol Use Standard Drinks/Week Comments Not Currently 0 (1 standard drink = 0.6 oz pur e alcohol) Comments No Sex and Gender Information Value Date Recorded Sex Assigned at Not on file Legal Sex Female 11:31 AM EDT Gender Identity Not on file Sexual Orientation Not on file documented as of this encounter Plan of Treatment Upcoming Encounters Date Type Department Care Team (Late Contact Info) Description 07/31/2025 2:45 PM EDT Office Visit [facility] [address] [facility] D Medical [address] [address] Naima Bruce DO [address] [address] documented as of this encounter Visit Diagnoses Not on filedocumented in this encounter Care Teams Hydraulic Press Operator Relationship Specialty Start Date End Date Nathaniel Esparza MD [address] [place] [address] PCP - General Family Medicine 09/17/23 documented as of this encounter
--- OUTSIDE RECORDS SUMMARY | 2024-12-07 19:10 | XMS_ITS | Clinical Summary ---
Author Organization [facility] Address [address] [place] [address] Care Team Providers Care Pattern Illustrator Name Role Phone Nathaniel Esparza MD Primary Care Provider [phone] Allergies Active Allergy Reactions Criticality Noted Date Comments Morphine Hives High 04/11/2020 hives Medications cholecalciferol (Vitamin D-3) 25 MCG (1000 UT) tablet Refills(s ) 0 06/02/2023 Active Family History Medical History Relation Name Comments Asthma Brother Mayur Diabetes Father Miguel Hypertension Father Miguel Diabetes Maternal Grandfather Gera Cancer Maternal Grandmother Bertha Diabetes Maternal Grandmother Bertha Cancer Mother Montserrat Hypertension Mother Montserrat bladder cancer Mother Montserrat Diabetes Paternal Grandfather Calvin Diabetes Paternal Grandmother Jaye Cancer Sister Billie Thyroid disease Sister Billie Relation Name Status Comments Brother Mayur Father Miguel Alive Maternal Grandfather Gera Maternal Grandmother Bertha Mother [place]at Alive Paternal Grandfather Calvin Paternal Grandmother Jaye Sister Billie Social History Tobacco Use Types Packs/Day Years Used Date Smoking Tobacco: Some Days Cigarettes 0.3 15 Smokeless Tobacco: Never Tobacco Cessation:Ready to Q uit: Not Asked; Counseling Given: Not Answered Alcohol Use Standard Drinks/Week Comments Not Currently 0 (1 standard drink = 0.6 oz pur e alcohol) Comments No Sex and Gender Information Value Date Recorded Sex Assigned at Not on file Legal Sex Female 11:31 AM EDT Gender Identity Not on file Sexual Orientation Not on file Last Filed Vital Signs Vital Sign Reading Time Taken Comments Blood Pressure 112/76 07/28/2024 9:27 AM EDT Pulse - - Temperature - - Respiratory Rate - - Oxygen Saturation - - Inhaled Oxygen Concentration - - Weight 103 kg (228 lb) 07/28/2024 9:27 AM EDT Height - - Body Mass Index - - Plan of Treatment Upcoming Encounters Date Type Department Care Team (Late st Contact Info) Description 07/31/2025 2:45 PM EDT Office Visit [facility] [address] [place]HELLE D [address] [phone] Naima Bruce DO [address] [phone] Insurance [employer] [place] Care Teams Pattern Illustrator Relationship Specialty Start Date End Date Nathaniel Esparza MD [address] [place] [address] PCP - General Family Medicine 09/17/23
--- OUTSIDE RECORDS SUMMARY | 2024-12-07 19:10 | XMS_ITS | Clinical Summary ---
Author Organization [facility] [facility] Address [id number] [address] [place] [address] Care Team Providers Care Counselor Camp Name Role Phone Arleth Thomas MD Primary Care Provider [phone] Allergies Active Allergy Reactions Criticality Noted Date Comments Morphine Hives Medium 04/11/2020 Shellfish Derived Itching Medium 05/21/2020 Medications cholecalciferol, vitamin D3, (VITAMIN D3) 10 mcg (400 unit) capsule Take 5,000 Int'l Units by mouth. Active ferrous sulfate 325 (65 FE) mg tablet Take 27 mg by mouth daily with breakfast. Active Lactobac no.41/Bifidobact no.7 (PROBIOTIC-10 ORAL) Take by mouth. Active oxyCODONE-acetam inophen (PERCOCET) 5-325 mg per tabletIndication s:Anal warts Take 1-2 every 4 hours as needed for pain 30 tablet 07/02/2020 Active oxyCODONE-acetam inophen (PERCOCET) 5-325 mg per tabletIndication s:Condyloma Take 1-2 every 4 hours as needed for pain 40 tablet 07/10/2020 Active Active Problems Problem Noted Date Diagnosed Date Anal warts 04/11/2020 Family History Medical History Relation Name Comments Diabetes Father Heart attack Father Hypertension Father Stroke Father Diabetes Maternal Grandfather Colon cancer Maternal Grandmother Diabetes Maternal Grandmother Diabetes Paternal Grandfather Diabetes Paternal Grandmother Ovarian cancer Sister Anesthesia problems Neg Hx Breast cancer Neg Hx Relation Name Status Comments Father Alive Maternal Grandfather Maternal Grandmother Mother Alive Paternal Grandfather Paternal Grandmother Sister Social History Tobacco Use Types Packs/Day Years Used Date Smoking Tobacco: Every Day Cigarettes 0.5 12 Smokeless Tobacco: Never Alcohol Use Standard Drinks/Week Comments Yes 0 (1 standard drink = 0.6 oz pur e alcohol) occassionally Childcare Answer Date Recorded Childcare Unknown 04/09/2020 Employment Answer Date Recorded Employment Unknown 04/09/2020 Purpose - Life Answer Date Recorded Purpose and direction in life Unknown Comments No Sex and Gender Information Value Date Recorded Sex Assigned at Not on file Legal Sex Female 11:58 AM EST Gender Identity Not on file Sexual Orientation Not on file Last Filed Vital Signs Vital Sign Reading Time Taken Comments Blood Pressure 114/77 07/02/2020 4:15 PM EDT Pulse 74 07/02/2020 4:15 PM EDT Temperature 36.3 C (97.3 F) 07/02/2020 4:15 PM EDT Respiratory Rate 14 07/02/2020 4:15 PM EDT Oxygen Saturation 100% 07/02/2020 4:15 PM EDT Inhaled Oxygen Concentration - - Weight 92.1 kg (203 lb) 07/10/2020 2:26 PM EDT Height 168.9 cm (5' 6.5 ) 07/10/2020 2:26 PM EDT Body Mass Index 32.27 07/10/2020 2:26 PM EDT Plan of Treatment Health Maintenance Due Date Last Done Comments Depression Screening 2005 Tobacco Screening 2005 Adult BMI Screening 05/21/2011 DTaP,Tdap and Td Vaccines (1 - Tdap) 2012 Pap Smear 04/11/2023 04/11/2020, 04/11/2020 Influenza Vaccine 10/24/2024 Medical Devices Not on file Procedures Procedure Name Priority Date/Time Associated Diagnosis Comments PAP SMEAR Routine 04/11/2020 11:25 AM EST Anal warts from Last 3 Months or Most Recently Relevant to Health Maintenance Results * Pap Smear (04/11/2020 11:25 AM EST) 04/11/2020 11:2 5 AM EST 04/12/2020 11:27 AM EST Narrative COPATH - 04/13/2020 1:01 PM EST [facility] [address] [place] [address] Gynecologic Cytology Consultation Patient Name: LILI BONDS : 1995 (Age: 24) Gender: F Taken: 04/11/2020 Reported: 04/13/2020 Physician(s): GLO Almanzar Copy To: [facility]. Rec. #: [id number] Acct: # [id number] Final Cytologic Interpretation ThinPrep Pap Test (Cervical): Satisfactory for evaluation. A transformation zone component is present. NEGATIVE FOR INTRAEPITHELIAL LESION OR MALIGNANCY. Shift in linda suggestive of bacterial vaginosis. [facility] [place]13[place]2020 Interpretation performed at [employer] [facility], [address] [place] [address], License number: [id number]. Electronically Signed Out By CHLOÉ Hernandez(ASCP) Date of Last Menstrual Period: 03/12/2020 Source of Specimen ThinPrep Pap Test (Cervical) Thin Prep Pap (METALIZING MACHINE OPERATOR) Fee Code(s): G0145 The Pap test is a screening test with an inherent, but low, probability of error. The Pap test is primarily effective for the diagnosis and prevention of squamous cell carcinoma. Regular screening is critical for prevention. ThinPrep liquid-based slides, which meet the Athletic Coach criteria for automated screening, have been screened by the ThinPrep Imaging System (as of 11/09/06) along with an additional manual rescreening by a respiratory medicine physician and, if indicated, by a pathologist. [facility] PATHOLOGY/CYTOLOGY ORDER CONCHITA Final Result COPATH from Last 3 Months or Most Recently Relevant to Health Maintenance Insurance [employer] Care Teams Counselor Camp Relationship Specialty Start Date End Date Arleth Thomas MD PCP - General Family Medicine 04/11/20
--- OUTSIDE RECORDS SUMMARY | 2024-12-07 19:10 | XMS_ITS | Encounter Summary ---
Author Organization [facility] Address [address] [place] [address] Care Team Providers Care Key Entry Operator Name Role Phone Nathaniel Esparza MD Primary Care Provider [phone] Encounter Details Date Type Department Care Team ([facility] Contact Info) Description 12/28/2023 Orders Only [facility] [address] [facility] D Medical [address] [phone] Naima Bruce DO [address] [phone] Social History Tobacco Use Types Packs/Day Years [...] EDT Office Visit [facility] [address] [facility] D Medical [address] [phone] Naima Bruce DO [address] [phone] documented as of this encounter Procedures Procedure Name Priority Date/Time Associated Diagnosis Comments ABO GROUP AND RH TYPE Routine 12/23/2023 7:12 AM EDT documented in this encounter Results * ABO/Rh (12/23/2023 7:12 AM EDT) Blood Venous blood specimen / Unknown Naima Bruce DO LAB BLOOD ORDERABLES Final Result documented in this encounter Visit Diagnoses Not on filedocumented in this encounter Care Teams Key Entry Operator Relationship Specialty Start Date End Date Nathaniel Esparza MD [address] [place] [address] PCP - General Family Medicine 09/17/23 documented as of this encounter
--- OUTSIDE RECORDS SUMMARY | 2024-12-07 19:10 | XMS_ITS | Encounter Summary ---
Author Organization [facility] Address [address] [place] [address] Care Team Providers Care Marketing Intelligence Analyst Name Role Phone Nathaniel Esparza MD Primary Care Provider [phone] Encounter Details Date Type Department Care Team (Late Contact Info) Description 01/06/2024 Orders Only [facility] [address] [facility] D Medical [address] [address] Keturah Sung MA Pelvic pressure in female; Burning with urination Social History Tobacco Use Types Packs/Day Years [...] EDT Office Visit [facility] [address] [facility] D Medical [address] [address] Naima Bruce DO [address] [phone] Scheduled Orders Name Type Priority Associated Diagnoses Orde r Schedule Urine culture Microbiology Routine Pelvic pressure in female Burning with urination Expected: 01/06/2024 (Approximate), Expires: 01/05/2025 documented as of this encounter Visit Diagnoses Diagnosis Pelvic pressure in female Burning with urination Dysuria documented in this encounter Care Teams Marketing Intelligence Analyst Relationship Specialty Start Date End Date Nathaniel Esparza MD [address] [id number] PCP - General Family Medicine 09/17/23 documented as of this encounter
--- OUTSIDE RECORDS SUMMARY | 2024-12-07 19:11 | XMS_ITS | CCD ---
Author Organization [facility] Care Team Providers Care Family Life Counselor Name Role Phone JJ, DR BRIANNA Velez Primary Care Unavailable ROSALINO, DR LUIS FERNANDO Garcia Admitting Unavailmoreno JERRY, DR LUIS FERNANDO Garcia Attending Unavailmoreno JERRY, DR LUIS FERNANDO Garcia Consulting Unavailmoreno GARDNER, DR BRIANNA Velez Admitting Unavailable JJ, DR BRIANNA Velez Attending Unavailable JJ, DR BRIANNA Velez Primary Care Unavailable JJ, DR BRIANNA Velez Consulting Unavailable JJ, DR BRIANNA Velez Primary Care Unavailable ROSALINO, DR LUIS FERNANDO Garcia Consulting Unavailmoreno JERRY, DR LUIS FERNANDO Garcia Admitting Unavailmoreno JERRY, DR LUIS FERNANDO Garcia Attending UnavailNathaniel Alberto Primary Care Physician Naima Bruce Attending Unavailable Naima Bruce Admitting Unavailable Nihairka Blackwell Attending Unavailable MD Nathaniel Esparza Attending Unavailable MD Nathaniel Esparza Attending Unavailable MD Nathaniel Esparza Attending Unavailable MD Nathaniel Esparza Attending Unavailable MD Nathaniel Esparza Attending Unavailable MD Nathaniel Esparza Admitting Unavailable MD Nathaniel Esparza Referring Unavailable MD Nathaniel Esparza Attending Unavailable DO Naima Bruce Attending UnavailDO Naima Mathews Admitting UnavailMD Nathaniel Mullins Admitting Unavailable MD Nathaniel Esparza Attending Unavailable MD Nathaniel Esparza Referring Unavailable Luis Daniel Polo Attending Unavailable Luis Daniel Polo Admitting Unavailable Ana Syed Attending Unavailable Nathaniel Esparza Admitting Unavailable Nathaniel Esparza Attending Unavailable Ana Syed Attending Unavailable MD Nathaniel Esparza Attending Unavailable MD Nathaniel Esparza Admitting Unavailable Nathaniel Esparza MD Primary Care Provider Naima Bruce. Admitting Unavailable NataprNaima henry. Attending Unavailable PaulineaprNaima henry. Referring Unavailable Nataprawira, Naima Smith. Admitting Unavailable Nataprawira, Naima Smith. Attending Unavailable NataprNaima henry. Referring Unavailable Nataprhalimara, Naima Smith. Referring Unavailable Nataprawira, Naima Smith. Attending Unavailable Nataprhalimara, Naima J. Admitting Unavailable Nataprawira, Naima J. Admitting Unavailable Nataprawira, Naima J. Referring Unavailable Nataprawira, Naima Smith. Attending Unavailable NataprNaima henry. Attending Unavailable Nataprhalimara, Naima J. Admitting Unavailable NATAPRAWIRA, NAIMA J Attending Unavailable NATAPRAWIRA, NAIMA J Attending Unavailable NATAPRAWIRA, NAIMA J Attending Unavailable NATAPRAWIRA, NAIMA J Attending Unavailable NATAPRHALIMARA, NAIMA J Attending Unavailable NATAPRHALIMARA, NAIMA J Attending Unavailable LukasMandy Attending Unavailable Lukas, Mandy Perry Attending Unavailable JOANNE PENN Attending Unavailable LukasMandy Attending Unavailable Lukas, Mandy L Attending Unavailable Allergies Allergy Classification Reported Allergen(s) Allergy Type Date of Onset Reaction(s) Facility (7 sources) Morphine; Translations: [morphine] Drug Allergy 1 [facility] Repository (7 sources) Shellfish; Translations: [shellfish] Drug allergy (disorder) [facility] Repository (17 sources) Morphine; Translations: [morphine] Drug Allergy 1 Hives, Urticaria (disorder) [facility] Comment on above: hives (10 sources) Shellfish; Translations: [shellfish] Propensity to adverse reactions to drug Anaphylaxis [facility] Comment on above: hot, throat itches, breathing issues Medications Current Medications Medication Drug Class(es) Dates Sig (Normalized) Sig (Original) acetaminophen 500 mg oral tablet (2 sources) Start: 12-24-2023 take 2 tablets by mouth every six hours acetaminophen 500 mg Tab 1,000 mg = 2 tab(s), Oral, q6hr, # 120 tab(s), Refills(s) 0, Pharmacy: [facility]/pharmacy #[id number], 171, cm, 12/23/23 11:36:00 EDT, Height/Length Dosing, 103.8, kg, 12/23/23 11:36:00 EDT, Weight Dosing Start Date: 12/24/23 Status: Ordered cholecalciferol 0.025 mg oral tablet (7 sources) Vitamin D Start: 06-02-2023 cholecalciferol (Vitamin D-3) 25 MCG (1000 UT) tablet Refills(s) 0 06/02/2023 Active docusate sodium 100 mg oral capsule (2 sources) Start: 12-24-2023 take 1 capsule by mouth at bedtime Colace 100 mg Cap 100 mg = 1 cap(s), Oral, Bedtime, # 30 cap(s), Refills(s) 1, Pharmacy: [facility]/pharmacy #[id number], 171, cm, 12/23/23 11:36:00 EDT, Height/Length Dosing, 103.8, kg, 12/23/23 11:36:00 EDT, Weight Dosing Start Date: 12/24/23 Status: Ordered ibuprofen 600 mg oral tablet (2 sources) Nonsteroidal Anti-inflammatory Drug Start: 12-24-2023 take 1 tablet by mouth every six hours ibuprofen 600 mg Tab 600 mg = 1 tab(s), Oral, q6hr, # 60 tab(s), Refills(s) 1, Pharmacy: [facility]/pharmacy #[id number], 171, cm, 12/23/23 11:36:00 EDT, Height/Length Dosing, 103.8, kg, 12/23/23 11:36:00 EDT, Weight Dosing Start Date: 12/24/23 Status: Ordered vitamin B12 (7 sources) Vitamin B12 Start: 08-17-2023 Vitamin B12 Oral, Daily, Refills(s) 0, Prophylaxis Start Date: 08/17/23 Status: Ordered Start: 08-17-2023 Vitamin B12 Re fills(s) 0 Start Date: 08/17/23 Status: Ordered Vitamin D (10 sources) Start: 06-02-2023 Vitamin D Oral , Daily, Refills(s) 0, Prophylaxis Start Date: 06/02/23 Status: Ordered Start: 06-02-2023 Vitamin D Refi lls(s) 0 Start Date: 06/02/23 Status: Ordered Problems Active Problems Problem Classification Problem Date Documented Da te Episodic/Chronic Abdominal pain (2 sources) Pain in female pelvis; Translations: [Pelvic and perineal pain] Onset: 12-24-2023 11-30-2023 Episodic Anxiety disorders (10 sources) Anxiety 04-28-2023 Chronic Deficiency and other anemia (10 sources) Anemia 04-28-2023 Episodic Genitourinary symptoms and ill-defined conditions (2 sources) Genuine stress incontinence; Translations: [Stress incontinence (female) (male)] 07-28-2024 Chronic Genitourinary symptoms and ill-defined conditions (3 sources) Dysuria; Translations: [DYSURIA] Onset: 06-21-2021 Episodic Menstrual disorders (6 sources) Irregular periods; Translations: [Irregular menstruation, unspecified] Onset: 12-24-2023 12-01-2023 Chronic Mood disorders (16 sources) Bipolar disorder; Translations: [Depressive disorder] 04-28-2023 Chronic Nutritional deficiencies (10 sources) Vitamin D deficiency 04-28-2023 Chronic Nutritional deficiencies (10 sources) Calcium deficiency 06-02-2023 Episodic Other aftercare (2 sources) Surgical follow-up; Translations: [Encounter for follow-up examination after completed treatment for conditions other than malignant neoplasm] 01-27-2024 Episodic Other connective tissue disease (10 sources) Ganglion cyst 04-28-2023 Episodic Other endocrine disorders (4 sources) Polycystic ovary syndrome 11-10-2023 Chronic Other gastrointestinal disorders (1 source) Peritoneal adhesion; Translations: [Peritoneal adhesions (postprocedural) (postinfection)] Onset: 12-24-2023 Episodic Other nervous system disorders (10 sources) Numbness and tingling sensation of skin 04-28-2023 Episodic Other screening for suspected conditions (not mental disorders or infectious disease) (2 sources) Patient encounter status; Translations: [Encounter for other screening for malignant neoplasm of breast] 07-28-2024 Episodic Residual codes; unclassified (10 sources) Family history of alcoholism 04-28-2023 Episodic Residual codes; unclassified (10 sources) Sleep disorder 04-28-2023 Episodic Residual codes; unclassified (2 sources) Nicotine-filled electronic cigarette user; Translations: [Tobacco use] 01-28-2024 Episodic Residual codes; unclassified (2 sources) Reduced libido; Translations: [Decreased libido] 07-28-2024 Episodic Substance-related disorders (12 sources) Nicotine dependence, cigarettes, uncomplicated; Translations: [Psychoactive substance abuse] Onset: 06-24-2021 04-28-2023 Chronic Unclassified (3 sources) ENCOUNT FOR SCREENING FOR COVID-19; Translations: [ENCOUNT FOR SCREENING FOR COVID-19] Onset: 11-15-2020 Urinary tract infections (1 source) Cystitis, unspecified without hematuria; Translations: [CYSTITIS UNS WITHOUT HEMATURIA] Onset: 06-24-2021 Episodic Viral infection (10 sources) Herpes simplex type 2 infection 04-28-2023 Episodic Past or Other Problems Problem Classification Problem Date Documented Da te Episodic/Chronic Other skin disorders (4 sources) Rash and other nonspecific skin eruption; Translations: [RASH OTH NONSPECIFIC SKIN ERUPTION] Onset: 08-18-2020 Episodic Unclassified (1 source) ENCOUNT FOR SCREENING FOR COVID-19; Translations: [ENCOUNT FOR SCREENING FOR COVID-19] Onset: 10-30-2020 Results Test Name Value Interpretation Reference Range [facility] Family Medicine Office/Clini c Noteon 11-02-2024 Family Medicine Office/Clinic Note Family Medicine Office/Clinic Note Chief Complaint The patient presents for a refill of ADHD medication and evaluation of anxiety and panic attacks. HPI Staff Lili is a 29 year old female presenting with 1 month f/u Has been on Adderall ... she has been out since 17 of October Sleeping well: yes Eating habits: Eating well, maintaining weight Side effects: _ Focused at home: _ Concerns/complaint s: None OARRS reviewed with no concerns Last med refill: or her heart 09/19/24 Urine drug screen complete: 08/22/24 Medication agreement utd: yes Date: 08/22/24 Discuss getting a referral for Cardiology for racing heart, chest tight feeling. Wakes up in the middle of the night shaking last week she walked to the end of lund she was shaking and she could not move she freeze up last episode was last week She needs refills on Adderall History of Present Illness 29-year-old female patient of BELA Patiño presenting with a request for ADHD medication refill and evaluation of anxiety and panic attacks. She reports a history of anxiety, which she associates with recent stressful life events, including relationship issues and family responsibilities. She describes episodes of chest heaviness and muscle tension, which she attributes to stress, and these episodes have been occurring for years, often waking her from sleep. The patient has been diagnosed with ADHD and is currently seeking a refill for her medication, which she was not taking during the recent episodes of anxiety. She has previously been misdiagnosed with bipolar disorder, which was later corrected to ADHD and oppositional defiant disorder (ODD). The patient has a history of iron deficiency anemia, which she acknowledges may contribute to her symptoms of fatigue and palpitations. She is also a smoker, which may exacerbate her anxiety and cardiovascular symptoms. The patient reports a BMI of 34.0-34.9, indicating obesity, which may contribute to her overall health concerns. Review of Systems PHQ Score Initial Depression Screen Score: 0 SCORE - Cardiovascular: Reports chest heaviness and palpitations. Denies syncope or orthopnea. - Neurological: Reports episodes of muscle tension and feeling cold during episodes. Denies loss of consciousness. - Respiratory: Reports dyspnea on exertion. Denies cough or wheezing. Physical Exam Vitals & Measurements T: 36.4 ???C(Temporal Artery) HR: 90(Peripheral) RR: 18 BP: 124/84 SpO2: 98% HT: 171.0 cm HT: 67 in WT: 99.6 kg WT: 219.58 lb BMI: 34.06 General: alert, no acute distress Cardiovascular: regular rate and rhythm, normal peripheral perfusion Respiratory: Lungs CTA, respirations non labored Extremities: no deformity, no trauma Neurological: oriented x 4, LOC appropriate for age speech normal Assessment/Plan 1. ADHD (F90.9: Attention-deficit hyperactivity disorder, unspecified type) - Adderall refilled at this visit - Medication Agreement and UDS are UTD - OARRS reviewed and found to be appropriate - F/U in 3 months 2. Chest pain (R07.9: Chest pain, unspecified) Discussed anxiety can cause chest pain and panic attacks Awaiting laboratory and EKG results May refer to cardiology pending results Ordered: ECG 12 Lead Adult 3. Smoker (F17.200: Nicotine dependence, unspecified, uncomplicated) - Discussed potential impact of smoking on anxiety and cardiovascular health. Consideration for smoking cessation support. 4. BMI 34.0-34.9,adult (Z68.34: Body mass index [BMI] 34.0-34.9, adult) BMI 34.06 Orders: amphetamine-dextro amphetamine, 20 mg = 1 cap(s), Oral, qAM, # 30 cap(s), Refills(s) 0, Pharmacy: [id number], 171, cm, 11/02/24 11:05:00 EDT, Height/Length Dosing, 99.6, kg, 11/02/24 11:05:00 EDT, Weight Dosing CBC w/ Auto Diff Comprehensive Metabolic Panel Lipid Panel TSH With T4fr Reflex Follow-up With When Contact Information Mandy Gaytan Within [address] [place], [place] [address] [facility] (1) Additional Instructions: ADD Patient Education Nonspecific Chest Pain, Adult, [id number] Problem List/Past Medical History Ongoing ADHD Anemia Anxiety Bipolar disorder, unspecified BMI 35.0-35.9,adult Calcium deficiency Family hx of alcoholism Ganglion cyst Herpes simplex type 2 infection Numbness and tingling Obesity (BMI 35.0-39.9 without comorbidity) PCOS (polycystic ovarian syndrome) Skin cyst Sleep disorder Tetrahydrocannabin ol (THC) use disorder, mild, abuse Vitamin D deficiency Historical No qualifying data Procedure/Surgical History Abdominal hysterectomy (12/24/2023), Bilateral tubal ligation, Cholecystectomy. Medications acetaminophen 500 mg Tab, 1000 mg= 2 tab(s), Oral, q6hr Adderall XR 20 mg Cap-ER, 20 mg= 1 cap(s), Oral, qAM ibuprofen 600 mg Tab, 600 mg= 1 tab(s), Oral, q6hr, 1 refills Vitamin B12, Oral, Daily Vitamin D, Oral, Daily Allergies morphine (Hives) shellfish (Anaphylaxis) Social Histo (more content not included)... Normal Krishnan [facility] Comment on above: Result Comment: Elec tronically Signed By: JOANNE PENN CNP\.br\Date and Time Signed: 11/02/24 11:53 EDT Family Medicine Office/Clini c Noteon 09-20-2024 Family Medicine Office/Clinic Note Family Medicine Office/Clinic Note Chief Complaint ADHD HPI Staff Lili is a 29 year old female presenting with 1 month f/u Adderall initiated at [facility]. Sleeping well: yes Eating habits: Eating well, maintaining weight Side effects: _no Focused at home: _yes Concerns/complaint s: None OARRS reviewed with no concerns Last med refill: 08/22/24 Urine drug screen complete: yes 08/22/24 Medication agreement utd: yes Date: 08/22/24 Has noticed an improvement. But feels like the medication wears off around 3pm. History of Present Illness pt presents today for 1 month follow up on ADHD meds Review of Systems PHQ Score Initial Depression Screen Score: 0 SCORE Physical Exam Vitals & Measurements T: 36.8 ???C(Oral) HR: 97(Peripheral) RR: 18 BP: 112/78 SpO2: 98% HT: 67 in HT: 171 cm WT: 225.974 lb WT: 102.5 kg BMI: 35.05 General: alert, no acute distress ENMT: oral mucosa moist, no pharyngeal erythema or exudate Cardiovascular: regular rate and rhythm, normal peripheral perfusion Respiratory: Lungs CTA, respirations non labored Extremities: no deformity, no trauma Neurological: oriented x 4, LOC appropriate for age, CN II-XII intact, motor strength equal & normal bilaterally, speech normal Assessment/Plan 1. ADHD (F90.9: Attention-deficit hyperactivity disorder, unspecified type) pt feel;s she is doing ok. is able to complete some tasks. but after 3 pm she struggles. will increase dose. also discussed starting short acting dose at lunch time. she will return in 1 month to see how things are going with increasing dose. if no improvement will add 2nd dose. RTC 1 month Ordered: amphetamine-dextro amphetamine, 10 mg = 1 cap(s), Oral, qAM, # 30 cap(s), Refills(s) 0, Pharmacy: [facility]/pharmacy #[id number], 171, cm, 08/22/24 8:26:00 EDT, Height/Length Dosing, 103.8, kg, 08/22/24 8:26:00 EDT, Weight Dosing 2. Tobacco use (Z72.0: Tobacco use) consider not smoking 3. BMI 35.0-35.9,adult (Z68.35: Body mass index [BMI] 35.0-35.9, adult) BMI education given Ordered: amphetamine-dextro amphetamine, 10 mg = 1 cap(s), Oral, qAM, # 30 cap(s), Refills(s) 0, Pharmacy: [facility]/pharmacy #[id number], 171, cm, 08/22/24 8:26:00 EDT, Height/Length Dosing, 103.8, kg, 08/22/24 8:26:00 EDT, Weight Dosing 4. Obesity (BMI 35.0-39.9 without comorbidity) (E66.9: Obesity, unspecified) Orders: amphetamine-dextro amphetamine, 20 mg = 1 cap(s), Oral, qAM, # 30 cap(s), Refills(s) 0, Pharmacy: [facility]/pharmacy #[id number], 171, cm, 09/19/24 10:26:00 EDT, Height/Length Dosing, 102.5, kg, 09/19/24 10:26:00 EDT, Weight Dosing Follow-up No qualifying data available Problem List/Past Medical History Ongoing ADHD Anemia Anxiety Bipolar disorder, unspecified BMI 35.0-35.9,adult Calcium deficiency Family hx of alcoholism Ganglion cyst Herpes simplex type 2 infection Numbness and tingling Obesity (BMI 35.0-39.9 without comorbidity) PCOS (polycystic ovarian syndrome) Skin cyst Sleep disorder Tetrahydrocannabin ol (THC) use disorder, mild, abuse Vitamin D deficiency Historical No qualifying data Procedure/Surgical History Abdominal hysterectomy (12/24/2023), Bilateral tubal ligation, Cholecystectomy. Medications acetaminophen 500 mg Tab, 1000 mg= 2 tab(s), Oral, q6hr Adderall XR 20 mg Cap-ER, 20 mg= 1 cap(s), Oral, qAM Colace 100 mg Cap, 100 mg= 1 cap(s), Oral, Bedtime, 1 refills ibuprofen 600 mg Tab, 600 mg= 1 tab(s), Oral, q6hr, 1 refills Vitamin B12, Oral, Daily Vitamin D, Oral, Daily Allergies morphine (Hives) shellfish (Anaphylaxis) Social History Alcohol Past. Beer, Wine, Liquor. 1-2 times per year., 09/14/2024 Substance Abuse - Medium Risk, 12/23/2023 Current. Marijuana. Daily. Previous treatment: None., 09/14/2024 Tobacco 4 or less cigarettes(less than 1/4 pack)/day in last 30 days Tobacco Use:. Never Smokeless Tobacco Use:. Cigarettes, Household tobacco concerns: No. Yes, 09/19/2024 Family History Acute myocardial infarction: Father. Alcoholism: Father. Anxiety: Mother. Depression: Mother. Diabetes mellitus type 2: Father. Hypertension: Mother and Father. Primary malignant neoplasm of bladder: Mother. Primary malignant neoplasm of colon: Grandparent. Immunizations Vaccine Date Status measles/mumps/rube lla virus vaccine 07/11/1998 Recorded hepatitis B pediatric vaccine 04/26/1996 Recorded DTaP, unspecified formulation 04/26/1996 Recorded measles/mumps/rube lla virus vaccine 02/22/1996 Recorded hepatitis B pediatric vaccine 02/22/1996 Recorded Hib, unspecified formulation 02/22/1996 Recorded hepatitis B pediatric vaccine 1993 Recorded Hib, unspecified formulation 1993 Recorded Normal [facility] Comment on above: Result Comment: Elec tronically Signed By: Mandy Nieves\.br\Date and Time Signed: 09/20/24 10:29 EDT Ambulatory Visit Summaryon 0 08-22-2024 Ambulatory Visit Summary Ambulatory Visit Summary LILI BONDS :1995 Visit Date:08/22/2024 Ambulatory Visit Instructions Your Diagnosis ADHD Skin cyst BMI 35.0-35.9,adult Class 1 obesity due to excess calories in adult, Other obesity due to excess calories Smoker Your Care Team Attending Physician - Mandy Nieves Primary Care Physician - Nathaniel Esparza MD This Is Your Medications List acetaminophen (acetaminophen 500 mg Tab) cyanocobalamin (Vitamin B12) docusate (Colace 100 mg Cap) ergocalciferol (Vitamin D) ibuprofen (ibuprofen 600 mg Tab) Procedures Performed Abdominal hysterectomy (12/24/2023), Bilateral tubal ligation, Cholecystectomy. Discharge Vitals Temperature (Temporal Artery) 36.5 ???C Heart Rate (Peripheral) 65 Respiratory Rate 18 Blood Pressure 112/76 Height 171.0 cm Height 67 in Weight 103.8 kg Weight 228.84 lb BMI 35.5 What to do next Scheduled Follow-Up Appointments Thursday 10:20 AM EDT With: Mandy Nieves Where: [place] [id number]- Medications What How Much When Instructions Unchanged acetaminophen (acetaminophen 500 mg Tab) 2 Tablets By Mouth Every 6 hours Unchanged cyanocobalamin (Vitamin B12) By Mouth Every day Unchanged docusate (Colace 100 mg Cap) 1 Capsules By Mouth At bedtime Unchanged ergocalciferol (Vitamin D) By Mouth Every day Unchanged ibuprofen (ibuprofen 600 mg Tab) 1 Tablets By Mouth Every 6 hours Allergies morphine (Hives) shellfish (Anaphylaxis) Problems Ongoing - Any problem that you are currently receiving treatment for. ADHD Anemia Anxiety Bipolar disorder, unspecified Calcium deficiency Family hx of alcoholism Ganglion cyst Herpes simplex type 2 infection Numbness and tingling PCOS (polycystic ovarian syndrome) Skin cyst Sleep disorder Tetrahydrocannabin ol (THC) use disorder, mild, abuse Vitamin D deficiency Patient Survey You may receive a survey via text or e-mail asking about your office visit. Please share your experience with us by completing your survey. We appreciate your feedback and thank you for choosing us for your care. Patient Portal You may access all of your results and other medical record information on our secure patient portal. If you are not signed up for this yet, please contact [employer] at [phone] to get signed up today. Language Information Language assistance services are available as needed. Normal Krishnan [facility] Family Medicine Office/Clini c Noteon 08-22-2024 Family Medicine Office/Clinic Note Family Medicine Office/Clinic Note HPI Staff Patient is presenting with a bump on left thigh, discuss ADHD Onset: noticed a few months ago Characteristics: bump Tried: no No associated symptoms. Does not hurt or itch. She was diagnosed with adhd when she was younger. It has been getting worse recently when she is at work. She feels very unfocused and gets irritated with her kids. States that after she has her coffee in the morning she feels calmer History of Present Illness pt presents today with bump on left thigh. and to discuss ADHD. she was diagnosed with it as a child. Review of Systems PHQ Score Initial Depression Screen Score: 0 SCORE Physical Exam Vitals & Measurements T: 36.5 ???C(Temporal Artery) HR: 65(Peripheral) RR: 18 BP: 112/76 SpO2: 99% HT: 67 in HT: 171.0 cm WT: 228.84 lb WT: 103.8 kg BMI: 35.5 General: alert, no acute distress ENMT: oral mucosa moist, no pharyngeal erythema or exudate Cardiovascular: regular rate and rhythm, normal peripheral perfusion Respiratory: Lungs CTA, respirations non labored Extremities: no deformity, no trauma Neurological: oriented x 4, LOC appropriate for age, CN II-XII intact, motor strength equal & normal bilaterally, speech normal Assessment/Plan 1. ADHD (F90.9: Attention-deficit hyperactivity disorder, unspecified type) pt was diagnosed with ADHD as a child but was never medicated. struggled in school and dropped out in 9th grade. is now struggling at work trying to stay focused. self assessment complete and scanned into chart. OARRS report reviewed. med agreement signed. UDS obtained in office today. all questions answered. RTC 4 weeks Ordered: amphetamine-dextro amphetamine, 10 mg = 1 cap(s), Oral, qAM, # 30 cap(s), Refills(s) 0, [facility]acy: [id number], 171, cm, 08/22/24 8:26:00 EDT, Height/Length Dosing, 103.8, kg, 08/22/24 8:26:00 EDT, Weight Dosing Drug Screen POC [id number] 2. Skin cyst (L72.9: Follicular cyst of the skin and subcutaneous tissue, unspecified) pt has a smooth skin colored cyst on left upper thigh. Does not look like molluscum or wart. pt will call derm for biopsy. Ordered: amphetamine-dextro amphetamine, 10 mg = 1 cap(s), Oral, qAM, # 30 cap(s), Refills(s) 0, Pharmacy: [id number], 171, cm, 08/22/24 8:26:00 EDT, Height/Length Dosing, 103.8, kg, 08/22/24 8:26:00 EDT, Weight Dosing 3. BMI 35.0-35.9,adult (Z68.35: Body mass index [BMI] 35.0-35.9, adult) BMI education given Ordered: amphetamine-dextro amphetamine, 10 mg = 1 cap(s), Oral, qAM, # 30 cap(s), Refills(s) 0, Pharmacy: [facility] #[id number], 171, cm, 08/22/24 8:26:00 EDT, Height/Length Dosing, 103.8, kg, 08/22/24 8:26:00 EDT, Weight Dosing 4. Class 1 obesity due to excess calories in adult, (E66.09: Other obesity due to excess calories)Other obesity due to excess calories see above Ordered: amphetamine-dextro amphetamine, 10 mg = 1 cap(s), Oral, qAM, # 30 cap(s), Refills(s) 0, Pharmacy: [facility]/pharmacy #[id number], 171, cm, 08/22/24 8:26:00 EDT, Height/Length Dosing, 103.8, kg, 08/22/24 8:26:00 EDT, Weight Dosing 5. Smoker (F17.200: Nicotine dependence, unspecified, uncomplicated) consider not smoking Ordered: amphetamine-dextro amphetamine, 10 mg = 1 cap(s), Oral, qAM, # 30 cap(s), Refills(s) 0, Pharmacy: [facility]/pharmacy #[id number], 171, cm, 08/22/24 8:26:00 EDT, Height/Length Dosing, 103.8, kg, 08/22/24 8:26:00 EDT, Weight Dosing Follow-up No qualifying data available Problem List/Past Medical History Ongoing ADHD Anemia Anxiety Bipolar disorder, unspecified Calcium deficiency Family hx of alcoholism Ganglion cyst Herpes simplex type 2 infection Numbness and tingling PCOS (polycystic ovarian syndrome) Skin cyst Sleep disorder Tetrahydrocannabin ol (THC) use disorder, mild, abuse Vitamin D deficiency Historical No qualifying data Procedure/Surgical History Abdominal hysterectomy (12/24/2023), Bilateral tubal ligation, Cholecystectomy. Medications acetaminophen 500 mg Tab, 1000 mg= 2 tab(s), Oral, q6hr Adderall XR 10 mg Cap-ER, 10 mg= 1 cap(s), Oral, qAM Colace 100 mg Cap, 100 mg= 1 cap(s), Oral, Bedtime, 1 refills ibuprofen 600 mg Tab, 600 mg= 1 tab(s), Oral, q6hr, 1 refills Vitamin B12, Oral, Daily Vitamin D, Oral, Daily Allergies morphine (Hives) shellfish (Anaphylaxis) Social History Substance Abuse - Medium Risk, 12/23/2023 Current, Marijuana, Daily, 12/23/2023 Tobacco 4 or less cigarettes(less than 1/4 pack)/day in last 30 days Tobacco Use:. Current vaping or e-cigarette use Smokeless Tobacco Use:. Vaping, Yes, 08/22/2024 Family History Acute myocardial infarction: Father. Alcoholism: Father. Anxiety: Mother. Depression: Mother. Diabetes mellitus type 2: Father. Hypertension: Mother and Father. Primary malignant neoplasm of bladder: Mother. Primary malignant neoplasm of colon: Grandparent. Immunizations Vaccine Date Status measles/mumps/rube lla virus vaccine 07/11/1998 Recorded hepatitis B pediatr (more content not included)... [facility] Comment on above: Result Comment: Elec tronically Signed By: Lukas CATHERINE, Mandy Perry\.br\Date and Time Signed: 08/22/24 08:52 EDT C Urineon 01-08-2024 Bacteria identified Cx Nom (U) Microbiology PROCEDURE: Urine Culture [R1] SOURCE: U CleanCatch BODY SITE: COLLECTED DATE/TIME: 01/06/2024 14:07 EST RECEIVED DATE/TIME: 01/06/2024 14:37 EST START DATE/TIME: 01/06/2024 14:37 EST FREE TEXT SOURCE: Naima Bruce DO, DO, Mona J. FINAL REPORTS Final Report [] Verified Date/Time: 01/08/2024 08:26 EST 1,000 cfu/ml Mixed skin contaminants Performing Locations R1: This test was performed at: [facility], [address] [place] [address], [facility] , , [facility] Comment on above: Performed By: #### [id number] #### [facility] [address] [place] [address] C URINEon 01-08-2024 [facility] URINE CULTURE Microbiology PROCEDURE: Urine Culture [R1] SOURCE: U CleanCatch BODY SITE: COLLECTED DATE/TIME: 01/06/2024 14:07 EST RECEIVED DATE/TIME: 01/06/2024 14:37 EST START DATE/TIME: 01/06/2024 14:37 EST FREE TEXT SOURCE: Naima Bruce DO, DO, Mona J. FINAL REPORTS Final Report [] Verified Date/Time: 01/08/2024 08:26 EST 1,000 cfu/ml Mixed skin contaminants Performing Locations R1: This test was performed at: [facility], [address] [place] [address], [id number] , [place], [facility] Original Ordering Provider: DO Naima Bruce [facility] Surgical Pathology Reporton 12-30-2023 Surgical Pathology Report [address] [place] [address]- Surgical Pathology Report Collected Date/Time: 12/24/2023 09:21 EDT Pathologist: Marc SHEEHAN PhD, Dao Perry Received Date/Time: 12/24/2023 11:14 EDT Naima Bruce DO, DO, Mona J. 07 Surgical Pathology Report - 12/30/2023 15:36 EST - Auth (Verified) Final Diagnosis UTERUS WITH FALLOPIAN TUBES, HYSTERECTOMY WITH BILATERAL SALPINGECTOMY: - MILD ENDOCERVICITIS. - MID SECRETORY PHASE ENDOMETRIUM. - MYOMETRIUM WITH NO PATHOLOGIC CHANGES. - FALLOPIAN TUBES WITH PARATUBALCYSTS. (Electronic Signature) Dao Tran MD PhD 12/30/2023 15:36 Clinical Information Irregular menses, dysmenorrhea Pre-Op Diagnosis: Irregular menses, dysmenorrhea Procedure: Robot assisted total hysterectomy and bilateral salpingectomy Post-Op Diagnosis: Irregular menses, dysmenorrhea, history of tubal ligation, secondary oligomenorrhea Specimen(s) Received Uterus, cervix, bilateral fallopian tubes Gross Description Received in formalin labeled with patient name, number, and uterus, cervix, and bilateral fallopian tubes is a symmetric hysterectomy specimen with attached fallopian tubes. The uterus measures 10.4 x 6.9 x 5.8 cm and weighs 183 g after removal of the fallopian tubes. Serosal surface is fernandez/pink, smooth; however, on the anterior surface there is a previous midline well-healed scar measuring 3 x less than 0.1 cm. The cervix is 3 cm long with a fernandez/pink glistening ectocervix measuring up to 3.5 cm in diameter, and the os measures up to 0.8 cm in diameter. Cross-sectioning through the cervix reveals a cystic granular cervical canal. The endometrial cavity is thickened, measuring 4.5 x 2.5 cm. Endometrium is fernandez/red/pink measuring up to 1 cm in thickness. Cross-sectioning through the myometrium reveals a thickened granular appearance, otherwise unremarkable. It is 1 cm in thickness at fundus. The assumed right fallopian tube with the attached fimbriated end overall measures 5.5 cm long and up to 0.8 cm in diameter. Cross-sectioning through the fallopian tube reveals a pinpoint lumen. The assumed left fallopian tube with the attached fimbriated end overall measures 5 cm long and up to 1 cm in diameter. A paratubal cyst measuring up to 0.9 cm is present. Cross-sectioning through the fallopian tube reveals a pinpoint lumen. Specimen is submitted in a total of 13 cassettes: 1-2 - Anterior and posterior cervix 3 - Transition zone 4-9 - Myometrium and endometrium 10-11 - University Tutor portion of the assumed right fallopian tube and fimbriated end 12-13 - University Tutor sections of the assumed left fallopian tube and fimbriated end (DC) DC:[facility] Microscopic Description Microscopic examination performed unless gross only specified. Normal [facility] Comment on above: Performed By: #### [id number] #### [facility] [address] [place] [address] Main OR Intraoperative Recor don 12-25-2023 Main OR Intraoperative Record Main OR Intraoperative Record IntraOp Document Type FT Summary Primary Physician: Naima Bruce DO Finalized Date/Time: 12/25/23 10:11:25 Pt. Name: LILI BONDS/Sex: 1995 Female Med Rec #: [id number] Physician: Naima Bruce DO Financial #: [id number] Pt. Type: A Room/Bed: Admit/Disch: 12/24/23 06:05:40 - 12/24/23 11:50:00 Institution: Case Times FT Entry 1 Patient Times In Room 12/24/23 07:25:00 Out Room 12/24/23 09:57:00 Procedure Times Start 12/24/23 07:53:00 Stop 12/24/23 09:50:00 Anesthesia Times Start 12/24/23 07:25:00 Stop 12/24/23 09:57:00 Last Modified By: Dom DE LA CRUZ, Phyllis Velez 12/24/23 10:02:49 General Comments: Marvininci robot docked at 0825, Dr. Bruce seated at robot console at 0831, Dr. Bruce left robot console at 0937, Davinci robot undocked at 0938. DOROTHY Dwyer Chart opened for charge review per Alexia Bolaños RN. [place] Case Attendance FT Entry 1 Entry 2 Entry 3 Case Attendee Gerald FELICIANO, CORSAGE MAKER, [facility], Naima Toribio COATING SUPERVISOR, Miguel Valdes Role Performed CORSAGE MAKER Surgeon - Primary COATING SUPERVISOR/SA Time In 12/24/23 07:25:00 12/24/23 07:38:00 12/24/23 07:25:00 Time Out 12/24/23 09:57:00 12/24/23 09:41:00 12/24/23 09:57:00 Procedure HYSTERECTOMY, ROBOT HYSTERECTOMY, ROBOT HYSTERECTOMY, ROBOT ASSISTED(Bilateral ) ASSISTED(Bilateral ) ASSISTED(Bilateral ) Comments Dr. Enriquez anesthesia surgical garment assembly supervisor, out for break Last Modified By: Dom RN, Phyllis Fernandes RN, Phyllis Fernandes RN, Phyllis Velez 12/24/23 10:03:06 12/24/23 10:03:06 12/24/23 10:03:06 Entry 4 Entry 5 Entry 6 Case Attendee Shawn Parks RN, Chuck Fernandes RN, Phyllis Velez Role Performed Scrub - Primary Wind Development Director - Primary Staff - Other Time In 12/24/23 07:25:00 12/24/23 07:25:00 12/24/23 07:25:00 Time Out 12/24/23 09:57:00 12/24/23 09:57:00 12/24/23 09:57:00 Procedure HYSTERECTOMY, ROBOT HYSTERECTOMY, ROBOT HYSTERECTOMY, ROBOT ASSISTED(Bilateral ) ASSISTED(Bilateral ) ASSISTED(Bilateral ) Comments preceptor, out for color television console monitor orientation, morning break out for morning break . Last Modified By: Phyllis Fernandes RN, RN, Leann E Ott RN, Leann E 12/24/23 10:03:06 12/24/23 10:03:06 12/24/23 10:03:06 Entry 7 Case Attendee Xochitl Messina CRNA Role Performed CORSAGE MAKER Time In 12/24/23 08:55:00 Time Out 12/24/23 09:57:00 Procedure HYSTERECTOMY, ROBOT ASSISTED(Bilateral ) Comments BREAK RELIEF Last Modified By: Phyllis Fernandes RN 12/24/23 10:03:06 Perioperative Protocols FT Pre-Care Text: Implements protective measures prior to operative or invasive procedure, confirms identity before the operative or invasive procedure, verifies operative procedure, surgical site, and laterality Entry 1 Procedure(s) HYSTERECTOMY, ROBOT Patient Identity Birthday, Blood Band, ASSISTED(Bilateral ) Verified (select at ID Band Check, Patient least 2): Participation Consents / H and P Anesthesia Consent, Operative Site N/A Verified H&P, Surgery/Procedure Marking Verified Consent, Transfusion Consent Surgical Site Yes Laterality Verified n/a Verified Procedure Verified Yes Correct Patient Yes Position Verified Availability Equipment, Medication Prep Dry Yes Verified (If Applicable) PreOp Antibiotic Yes Time Out Gerald FELICIANO CRNA, Queen Idania Valdes, Naima Bruce DO, Malu COATING SUPERVISOR, Miguel W, Shawn Parks R, Tiffanie RN, Dom Sanchez RN, Leann E Time Out Complete 12/24/23 07:52:00 Outcomes Met? Yes Last Modified By: Phyllis Fernandes RN 12/24/23 08:09:26 Post-Care Text: The patient is free from signs and symptoms of injury caused by extraneous objects Allergy Information FT Pre-Care Text: Verifies allergies Entry 1 Allergies Reviewed? Yes Allergies Reviewed Self/Patient With Outcomes Met? Yes Last Modified By: Phyllis Fernandes RN 12/24/23 08:09:34 Post-Care Text: The patient received appropriate medication(s) safely administered during the perioperative period Surgical Procedures FT Entry 1 Procedure Description Procedure HYSTERECTOMY, ROBOT Modifiers Bilateral ASSISTED Surgeon Description ROBOTIC ASSISTED TOTAL LAPAROSCOPIC HYSTERECTOMY WITH BILATERAL SALPINGECTOMY Primary Procedure Yes Primary Surgeon Naima Bruce DO Start 12/24/23 07:53:00 Stop 12/24/23 09:50:00 Anesthesia Type General Surgical Service Obstetric Gynecology Wound Class 2 - Clean-Contaminated Last Modified By: Dom DE LA CRUZ, Phyllis Velez 12/24/23 10:02:52 General Case Data FT Pre-Care Text: Classifies surgical wound, implements aseptic technique, initiates traffic control Entry 1 Case Information OR OR 6 FT Case Level Level 5 Wound Class 2 - Clean-Contaminated Specialty Obstetric Gynecology ASA Class 2 Preop Diagnosis IRREGULAR MENIES, Postop Same As Preop Yes DYSMENORRHEA, HISTORY OF TUBAL LIGATION, SECONDARY OLIGOMENORRHEA Postop Diagnosis IRREGULAR MENIES, Outcomes Met? Yes DYSMENORRH (more content not included)... Normal [facility] ABO/Rhon 12-24-2023 ABO/Rh Positive Invalid Interpretation Code [facility] Comment on above: Performed By: #### [id number] #### [facility] [address] [place] [address] ABO/Rh History Checkon 12-23 ABO/Rh History Check Verified Hx Blood Type Normal [facility] Comment on above: Performed By: #### 1 [id number] #### [facility] [address] [place] [address] ABSCon 12-24-2023 ABSC Gel Interp Negative Normal [facility] Comment on above: Performed By: #### 1 [id number] #### [facility] [address] [place] [address] BLOOD BANKOrdered By: Viktoria Sebastian on 12-24-2023 ABO/Rh Interp Positive Invalid Interpretation Code [facility] BB Subsection ABSC Gel Interp Negative (12/24/23 6:30 AM) Normal [facility] BB Subsection Blood Bank ID#on 12-24-2023 BBID# [id number] Invalid Interpretation Code [facility] Comment on above: Performed By: #### 1 [id number] #### [facility] [address] [place] [address] Discharge Instructionson Discharge Instructions Discharge Instructions LILI BONDS :1995 Visit Date:12/24/2023 Inpatient Discharge Instructions Your Care Team Admitting Physician - Naima Bruce DO Referring Physician - Naima Bruce DO Reason for Your Visit IRREGULAR MENCIES, DYSMENORRHEA, HX OF TUBAL LIGATION, SECONDARY OLIGOMENORRHEA Your Diagnosis Adhesion of abdominal wall Dysmenorrhea Heavy menstrual bleeding History of bilateral tubal ligation Irregular menstrual bleeding Pain, female pelvic This Is Your Medications List acetaminophen (acetaminophen 500 mg Tab) cyanocobalamin (Vitamin B12) docusate (Colace 100 mg Cap) ergocalciferol (Vitamin D) ibuprofen (ibuprofen 600 mg Tab) Procedure History Bilateral tubal ligation, Cholecystectomy. What to do next Instructions From Your Doctor Event Name Event Result Discharge Instructions Freetext No sternuous activities and pelvic rest until your post-operative follow up in the office Discharge Activity Ambulate as tolerated, Expect minimal amount of drainage and/or bleeding Discharge Diet(s) Regular Call Your Doctor For Persistent or heavy bleeding, Temperature above 101.5 degrees, Redness, swelling, or pus at operative site, Persistent vomiting Discharge Instructions Discharge Instructions New Follow Up Appointments after Discharge Follow Up with Naima Bruce When: Where: [facility] Noam Malcolm [address] [address]- Business (1) Medications What How Much When Instructions Next Dose New acetaminophen (acetaminophen 500 mg Tab) 2 Tablets By Mouth Every 6 hours Pickup at [facility]/pharmacy #[id number] New docusate (Colace 100 mg Cap) 1 Capsules By Mouth At bedtime Refills: 1 Pickup at [facility]/pharmacy #[id number] New ibuprofen (ibuprofen 600 mg Tab) 1 Tablets By Mouth Every 6 hours Refills: 1 Pickup at [facility]/pharmacy #[id number] Unchanged cyanocobalamin (Vitamin B12) By Mouth Every day Unchanged ergocalciferol (Vitamin D) By Mouth Every day Pharmacy Information [facility]/pharmacy #[id number]: [address], [place] [id number] [phone] Education Materials Total Laparoscopic Hysterectomy, Care After The following information offers guidance on how to care for yourself after your procedure. Your health care provider may also give you more specific instructions. If you have problems or questions, contact your health care provider. What can I expect after the procedure? After the procedure, it is common to have: ??? Pain, bruising, and numbness around your incisions. ??? Tiredness (fatigue). ??? Poor appetite. ??? Less interest in sex. ??? Vaginal discharge or bleeding. You will need to use a sanitary pad after this procedure. ??? Feelings of sadness or other emotions. If your ovaries were also removed, it is also common to have symptoms of menopause, such as hot flashes, night sweats, and lack of sleep (insomnia). Follow these instructions at home: Medicines ??? Take vwaw-pcc-wjafbqn and prescription medicines only as told by your health care provider. ??? Ask your health care provider if the medicine prescribed to you: ? Requires you to avoid driving or using machinery. ? Can cause constipation. You may need to take these actions to prevent or treat constipation: ? Drink enough fluid to keep your urine pale yellow. ? Take [id number]-[id number] or prescription medicines. ? Eat foods that are high in fiber, such as beans, whole grains, and fresh fruits and vegetables. ? Limit foods that are high in fat and processed sugars, such as fried or sweet foods. Incision care ??? Follow instructions from your health care provider about how to take care of your incisions. Make sure you: ? Wash your hands with soap and water for at least 20 seconds before and after you change your bandage (dressing). If soap and water are not available, use hand lab support tech. ? Change your dressing as told by your health care provider. ? Leave stitches (sutures), skin glue, or adhesive strips in place. These skin closures may need to stay in place for 2 weeks or longer. If adhesive strip edges start to loosen and curl up, you may trim the loose edges. Do not remove adhesive strips completely unless your health care provider tells you to do that. ??? Check your incision areas every day for signs of infection. Check for: ? More redness, swelling, or pain. ? Fluid or blood. ? Warmth. ? Pus or a bad smell. Activity ??? Rest as told by your health care provider. ??? Avoid sitting for a long time without moving. Get up to take short walks every 1???2 hours. This is important to improve blood flow and breathing. Ask for help if you feel weak or unsteady. ??? Return to your normal activities as told by your health care provider. Ask your health care provider what activities are safe for you. ? (more content not included)... Normal [facility] Comment on above: Result Comment: Elec tronically Signed By: Eli DE LA CRUZ, Neil Mcclendon\.yohan\Date and Time Signed: 12/24/23 11:42 EDT Inpatient Patient Summaryon 12-24-2023 Inpatient Patient Summary Inpatient Patient Summary [place] [id number] [facility] Clinical Discharge Instructions PERSON INFORMATION Name: LILI BONDS PHYSICIANS Admitting Physician: Naima Bruce DO Attending Physician: Naima Bruce DO PCP: Nathaniel Esparza MD Discharge Diagnosis: Adhesion of abdominal wall; Dysmenorrhea; Heavy menstrual bleeding; History of bilateral tubal ligation; Irregular menstrual bleeding; Pain, female pelvic Comment: PATIENT EDUCATION INFORMATION Instructions: Total Laparoscopic Hysterectomy, Care After Medication Leaflets: Follow up: With: Address: When: Naima Bruce [address] [place] [address] [place] [id number] Business (1) MEDICATION LIST New Medications [facility]/pharmacy #[id number], [address], [place] [id number], [phone] acetaminophen (acetaminophen 500 mg Tab) 2 Tablets By Mouth every 6 hours. Refills: 0. docusate (Colace 100 mg Cap) 1 Capsules By Mouth at bedtime. Refills: 1. ibuprofen (ibuprofen 600 mg Tab) 1 Tablets By Mouth every 6 hours. Refills: 1. Medications to Continue with No Changes Other Medications cyanocobalamin (Vitamin B12) By Mouth every day. ergocalciferol (Vitamin D) By Mouth every day. Comment: Normal [facility] Main OR PACU I Recordon 11-25 Main OR PACU I Record Main OR PACU I Record PACU Phase I Document Type FT Summary Primary Physician: Naima Bruce DO Finalized Date/Time: 12/24/23 11:00:45 Pt. Name: LILI BONDS/Sex: 1995 Female Med Rec #: [id number] Physician: Naima Bruce DO Financial #: [id number] Pt. Type: A Room/Bed: Admit/Disch: 12/24/23 06:05:40 - Institution: Case Times PACU I FT Pre-Care Text: Identifies barriers to communication and implements measures to provide psychological support Develops individualized plan of care, and ensures continuity of care Maintains patient's dignity and privacy, and maintains patient confidentiality Identifies and reports philosophical, cultural, and spiritual beliefs and values Identifies individual values and wishes concerning care Implements aseptic technique, and administers prescribed antibiotic therapy and immunizing agents as ordered Evaluates postoperative tissue perfusion Implements thermoregulation measures, and monitors body temperature Evaluates postoperative respiratory status Evaluates postoperative cardiac status Evaluates postoperative neurological status Assesses pain control, collaborated in initiating patient-controlled analgesia and implements alternative methods of pain control Verifies allergies, administers prescribed medications and solutions, evaluates response to medications Entry 1 In PACU I 12/24/23 09:58:00 Discharge from PACU 12/24/23 10:52:00 I Outcomes Met? Yes Last Modified By: Miguelina Adams RN 12/24/23 11:00:40 Post-Care Text: The patient demonstrates knowledge of the expected response to the operative or invasive procedure The patient's care is consistent with the individualized perioperative plan of care The patient's right to privacy is maintained The patient's value system, lifestyle, ethnicity, and culture are considered, respected, and incorporated into the perioperative plan of care The patient participates in decisions affecting his or her perioperative plan of care The patient is free from signs and symptoms of infection The patient has wound/tissue perfusion consistent with or improved from baseline levels established preoperatively The patient is at or returning to normothermia at the conclusion of the immediate postoperative period The patient's respiratory function is consistent with or improved from baseline levels established preoperatively The patient's cardiovascular status is consistent with or improved from baseline levels established preoperatively The patient's cardiovascular status is consistent with or improved from baseline levels established preoperatively The patient demonstrates and/or reports adequate pain control throughout the perioperative period The patient received appropriate medication(s), safely administered during the perioperative period Acuity Level PACU I FT Entry 1 Start Time 12/24/23 09:58:00 Stop Time 12/24/23 10:52:00 Acuity Level Acuity Level I Last Modified By: Miguelina Adams RN 12/24/23 11:00:33 Finalized By: Miguelina Adams RN Document Signatures Signed By: Miguelina Adams RN 12/24/23 11:00 Normal [facility] Main OR PACU II Recordon Main OR PACU II Record Main OR PACU II Record PACU Phase II Document Type FT Summary Primary Physician: Naima Bruce DO Finalized Date/Time: 12/24/23 12:38:57 Pt. Name: LILI BONDS./Sex: 1995 Female Med Rec #: [id number] Physician: Naima Bruce DO Financial #: [id number] Pt. Type: A Room/Bed: [facility] Admit/Disch: 12/24/23 06:05:40 - Institution: Case Times PACU II FT Pre-Care Text: Identifies barriers to communication and implements measures to provide psychological support and determines knowledge level Develops individualized plan of care, and ensures continuity of care Maintains patient's dignity and privacy, and maintains patient confidentiality Identifies and reports philosophical, cultural, and spiritual beliefs and values Identifies individual values and wishes concerning care administers prescribed antibiotic therapy and immunizing agents as ordered, Evaluates postoperative tissue perfusion Implements thermoregulation measures, and monitors body temperature Evaluates postoperative respiratory status Evaluates postoperative cardiac status Evaluates postoperative neurological status Assesses pain control, collaborated in initiating patient-controlled analgesia and implements alternative methods of pain control Verifies allergies, administers prescribed medications and solutions, evaluates response to medications Entry 1 In PACU II 12/24/23 10:50:00 Discharge from PACU 12/24/23 11:50:00 II Outcomes Met? Yes Last Modified By: Neil Benitez RN 12/24/23 12:38:54 Post-Care Text: The patient demonstrates knowledge of the expected response to the operative or invasive procedure The patient's care is consistent with the individualized perioperative plan of care The patient's right to privacy is maintained The patient's value system, lifestyle, ethnicity, and culture are considered, respected, and incorporated into the perioperative plan of care The patient participates in decisions affecting his or her perioperative plan of care. The patient is free from signs and symptoms of infection The patient has wound/tissue perfusion consistent with or improved from baseline levels established preoperatively The patient is at or returning to normothermia at the conclusion of the immediate postoperative period The patient's respiratory function is consistent with or improved from baseline levels established preoperatively The patient's cardiovascular status is consistent with or improved from baseline levels established preoperatively The patient's neurological status is consistent with or improved from baseline levels established preoperatively The patient demonstrates and/or reports adequate pain control throughout the perioperative period The patient received appropriate medication(s), safely administered during the perioperative period Finalized By: Neil Benitez RN Document Signatures Signed By: Neil Benitez RN 12/24/23 12:38 Normal [facility] Main OR Preoperative Recordo n 12-24-2023 Main OR Preoperative Record Main OR Preoperative Record PreOp Document Type FT Summary Primary Physician: Naima Bruce DO Finalized Date/Time: 12/24/23 08:13:43 Pt. Name: LILI BONDS/Sex: 1995 Female Med Rec #: [id number] Physician: Naima Bruce DO Financial #: [id number] Pt. Type: A Room/Bed: [place] [address] Admit/Disch: 12/24/23 06:05:40 - Institution: Case Times PreOp FT Pre-Care Text: Verifies consent for planned procedure, identifies individual values and wishes concerning care, includes family members in perioperative teaching Entry 1 Patient Times. In Pre Surgery 12/24/23 06:10:00 Out Pre Surgery 12/24/23 07:23:00 Outcomes Met? Yes Last Modified By: Phyllis Fernandes RN 12/24/23 08:13:42 Post-Care Text: The patient participates in decisions affecting his or her perioperative plan of care Finalized By: Phyllis Fernandes RN Document Signatures Signed By: Phyllis Fernandes RN 12/24/23 08:13 Normal [facility] Operative Reporton Operative Report Operative Report Indication for Surgery Patient reports of worsening moderate to severe cramping with her cycles which associated with irregular cycles. Patient has history of bilateral tubal ligation for contraception. Treatment/manageme nt options discussed. Patient declined other treatment options and voiced interest in proceeding with definitive surgical management of hysterectomy. Risks of but not limited to pain, bleeding, infection, and injury to surrounding structures (bladder, bowel, ureter, etc.) discussed. Patient voiced understanding and informed consent were signed in the office. Preoperative Diagnosis IRREGULAR MENIES, DYSMENORRHEA, HISTORY OF TUBAL LIGATION, SECONDARY OLIGOMENORRHEA Postoperative Diagnosis IRREGULAR MENIES, DYSMENORRHEA, HISTORY OF TUBAL LIGATION, SECONDARY OLIGOMENORRHEA Operation HYSTERECTOMY, ROBOT ASSISTED, ROBOTIC ASSISTED TOTAL LAPAROSCOPIC HYSTERECTOMY WITH BILATERAL SALPINGECTOMY, Bilateral Surgeon(s) Naima Bruce DO (Surgeon - Primary) Coke Inspector Moshe Toribio Anesthesia General MD Zoe, Kassandra Fajardo (Irrigator Sprinkling System) Xochitl Messina CRNA (Other) Gerald FELICIANO CRNA, Queen N. (Other) Estimated Blood Loss 50mL Urine Output 250mL of clear yellow urine in the goel bag at the end of the procedure Findings Uterus sounded to 11cm. Laparoscopic findings revealed normal appearing uterus, bilateral fallopian tubes, and bilateral ovaries. Adhesions between the omentum and the anterior abdominal wall was noted Specimen(s) Pathology Tissue Exam (Uterus, cervix, bilateral fallopian tubes,AP Specimen) Complications None Technique Patient was seen in the Pre-operative area, all questions were asked and answered. Patient was brought to the operating room with IV fluid running and placed on the operating table without difficulty. General anesthesia was induced and patient was placed in the dorsal lithotomy position with Sebastian type stirrups with the knees bent to 30 degree angles. Patient was prepped and draped in a normal sterile fashion after goel catheter was inserted and drained to gravity. At this time, timeout was called for the correct patient and the correct procedure. At this time attention was brought to the patient's vagina and a weighted speculum was inserted to the posterior aspect of the vagina and right angle was inserted to the anterior aspect of the vagina to better visualize the cervix. Single-tooth tenaculum was used to grasp the anterior cervical lip. Uterine cavity sounded to 11 cm. Medium, 35mm V-care uterine manipulator was inserted and the cervical cup was secured with suture at the 12 o'clock position on the cervix. The weighted speculum and the right angle were removed from the vagina. At this time attention was brought to the patient's abdomen. 1 mL of 1.3% Exparel/Epinephrin e was administered into the skin and subcutaneous tissue of the superior aspect of the umbilicus. Intra-abdominal access was obtained with a Veress needle with positive hanging drop test. Opening pressure of the intra-abdominal cavity was noted to be mmHg. Pneumoperitoneum was obtained with CO2 gas to a pressure of 15 mmHg. A 8 mm robot laparoscopic port was inserted under direct visualization of the laparoscope. Intra-abdominal placement was confirmed with the laparoscope. No obvious vascular or visceral injury was noted. One additional 8mm robot laparoscopic port was placed approximately 8cm laterally to the left from the initial port and two additional 8mm robot laparoscopic ports are placed laterally to the right of the initial port 8 cm apart under direct visualization of the laparoscope. Laparoscopic finding was noted above. Laparoscopic scissors attached to bipolar energy was used to take down the adhesions between the anterior abdominal wall and the omentum without difficulty. The robot was then docked, the endoscope was inserted and aimed into the pelvis. The Vessel sealer, bipolar grasper, and suction/dye feeder device were inserted under direct visualization of the endoscope. At this time, I broke scrub and sit on the console to control the instruments. The fimbriated end of the left fallopian tube was lifted up, away from the pelvic wall and the mesosalpinx was clamped, desiccated and divided with Vessel sealer device. Following this, sequentially the left utero-ovarian ligament and the round ligament was clamped, desiccated, and divided without difficulty. The anterior broad ligament was dissected at the appropriate plane towards the base of the bladder and adjacent to the cervix. The same procedure was performed on the right side without difficulty. The bladder was appropriately dissected and freed from the lower anterior uterine segment. The tissues were skeletonized and the uterine arteries were clamped, desiccated, and ligated on the left side then on the right side. Pedicles were checked and there were hemostatic. At this time colpotomy was performed with monopolar endoscissors around the cervical cup. The uter (more content not included)... Normal [facility] Comment on above: Result Comment: Elec tronically Signed By: Naima Bruce DO\.yohan\Date and Time Signed: 12/24/23 12:07 EDT Outpatient Surgery Discharge Instructionon 12-24-2023 Outpatient Surgery Discharge Instruction Outpatient Surgery Discharge Instruction [address] [address] Patient Discharge Instructions PERSON INFORMATION Name: LILI BONDS Date of : 1995 Current Date: 12/24/2023 10:05:02 PHYSICIANS Admitting Physician: Naima Bruce DO Discharge Diagnosis: Adhesion of abdominal wall; Dysmenorrhea; Heavy menstrual bleeding; History of bilateral tubal ligation; Irregular menstrual bleeding; Pain, female pelvic LILI BONDS has been given the following list of follow-up instructions, prescriptions, and patient education materials: PATIENT FOLLOW-UP INFORMATION Diet: Regular Discharge Activity: Ambulate as tolerated, Expect minimal amount of drainage and/or bleeding Call Your Doctor For: Persistent or heavy bleeding, Temperature above 101.5 degrees, Redness, swelling, or pus at operative site, Persistent vomiting Additional Instructions: No sternuous activities and pelvic rest until your post-operative follow up in the office IF UNABLE TO CONTACT YOUR PHYSICIAN AND YOU FEEL IT IS AN EMERGENCY, GO TO THE NEAREST EMERGENCY ROOM OR CALL 911 I, LILI BONDS, have received the attached patient education materials/instruct ions and have verbalized understanding: May we do a follow up call? Yes No I was present when discharge instructions were given Patient Signature Date Clinican/Nurse Signature Date Follow up: With: Address: When: Naima Bruce [facility] Rahul Victor [address] [address] Business (1) Pharmacy Information: You may receive a survey from [employer] asking you to rate your care experience. Your feedback is important and will help us understand what we do well and how we can improve the quality of care we provide to you, your loved ones and our community. It???s an honor to serve you. Thank you for choosing [facility] HERE ARE THE MEDICATION CHANGES THAT OCCURRED DURING YOUR HOSPITAL STAY New Medications [id number], [address], [place] [id number], [phone] acetaminophen (acetaminophen 500 mg Tab) 2 Tablets By Mouth every 6 hours. Refills: 0. docusate (Colace 100 mg Cap) 1 Capsules By Mouth at bedtime. Refills: 1. ibuprofen (ibuprofen 600 mg Tab) 1 Tablets By Mouth every 6 hours. Refills: 1. Medications to Continue with No Changes Other Medications cyanocobalamin (Vitamin B12) By Mouth every day. ergocalciferol (Vitamin D) By Mouth every day. PATIENT EDUCATION INFORMATION Instructions: Total Laparoscopic Hysterectomy, Care After The following information offers guidance on how to care for yourself after your procedure. Your health care provider may also give you more specific instructions. If you have problems or questions, contact your health care provider. What can I expect after the procedure? After the procedure, it is common to have: ??? Pain, bruising, and numbness around your incisions. ??? Tiredness (fatigue). ??? Poor appetite. ??? Less interest in sex. ??? Vaginal discharge or bleeding. You will need to use a sanitary pad after this procedure. ??? Feelings of sadness or other emotions. If your ovaries were also removed, it is also common to have symptoms of menopause, such as hot flashes, night sweats, and lack of sleep (insomnia). Follow these instructions at home: Medicines ??? Take thuk-mqu-lyvvchk and prescription medicines only as told by your health care provider. ??? Ask your health care provider if the medicine prescribed to you: ? Requires you to avoid driving or using machinery. ? Can cause constipation. You may need to take these actions to prevent or treat constipation: ? Drink enough fluid to keep your urine pale yellow. ? Take azrb-eoe-dsalvjr or prescription medicines. ? Eat foods that are high in fiber, such as beans, whole grains, and fresh fruits and vegetables. ? Limit foods that are high in fat and processed sugars, such as fried or sweet foods. Incision care ??? Follow instructions from your health care provider about how to take care of your incisions. Make sure you: ? Wash your hands with soap and water for at least 20 seconds before and after you change your bandage (dressing). If soap and water are not available, use hand lab support tech. ? Change your dressing as told by your health care provider. ? Leave stitches (sutures), skin glue, or adhesive strips in place. These skin closures may need to stay in place for 2 weeks or longer. If adhesive strip edges start to loosen and curl up, you may trim the loose edges. Do not remove (more content not included)... Normal [facility] URINALYSISOrdered By: SYSTEM SYSTEM on 12-24-2023 Bilirubin Ql (U) Negative Normal Negativemg/dL [facility] UA Auto SS Clarity (U) Clear (12/24/23 7:46 AM) Normal Clear [facility] UA Auto SS Color (U) Colorless 1 *ABN* (12/24/23 7:46 AM) Invalid Interpretation Code Yellow [facility] UA Auto SS Comment on above: Interpretive Data: M icroscopic readings are only performed on those samples that meet specific criteria set forth by [facility]. Glucose Ql (U) Negative Normal Negativemg/dL [facility] UA Auto SS Hemoglobin Auto test strip (U) [Mass/Vol] Negative Normal Negativemg/dL [facility] UA Auto SS Ketones Auto test strip Ql (U) Negative Normal Negativemg/dL [facility] UA Auto SS Leukocyte esterase Auto test strip Ql (U) Negative Normal NegativeLeu/uL [facility] UA Auto SS Nitrite Auto test strip Ql (U) Negative Normal Negativemg/dL [facility] UA Auto SS pH (U) 6.0 *NA* (12/24/23 7:46 AM) Invalid Interpretation Code 5.0 - 9.0 [facility] UA Auto SS Protein Ql (U) Negative Normal Negativemg/dL [facility] UA Auto SS Specific gravity (U) [Rel density] 1.010 *NA* (12/24/23 7:46 AM) Invalid Interpretation Code 1.005 - 1.030 [facility] UA Auto SS Urobilinogen (U) [Mass/Vol] Negative Normal Negativemg/dL [facility] UA Auto SS URINALYSISOrdered By: Phyllis Fernandes on 12-24-2023 UA Spec Desc Goel (12/24/23 7:46 AM) Normal [facility] UA Auto SS URINALYSIS WITH MICROon 11-25 BILIRUBIN:PRTHR:PT:U RINE:ORD:TEST STRIP.AUTOMATED Negative Negative mg/dL [facility] CLARITY:TYPE:PT:URIN E:NOM: Clear Clear [facility] CLASS:TYPE:PT:URINE COLLECTION METHOD:NOM:* Goel [facility] COLOR:TYPE:PT:URINE: NOM:AUTO Colorless Abnormal Yellow [facility] Comment on above: Microscopic readings are only performed on those samples that meet specific criteria set forth by [facility]. [facility] PH:LSCNC:PT:URINE:QN :TEST STRIP 6.0 5.0 - 9.0 [facility] SPECIFIC GRAVITY:RDEN:PT:URIN E:QN:TEST STRIP 1.010 1.005 - 1.030 [facility] GLUCOSE:PRTHR:PT:URI NE:ORD:TEST STRIP Negative Negative mg/dL [facility] HEMOGLOBIN:MCNC:PT:U RINE:SEMIQN:TEST STRIP.AUTOMATED Negative Negative mg/dL [facility] Interpretation and review of laboratory results Abnormal [facility] KETONES:PRTHR:PT:URI NE:ORD:TEST STRIP.AUTOMATED Negative Negative mg/dL [facility] LEUKOCYTE ESTERASE:PRTHR:PT:UR INE:ORD:TEST STRIP.AUTOMATED Negative Negative CD:[id number] [facility] NITRITE:PRTHR:PT:URI NE:ORD:TEST STRIP.AUTOMATED Negative Negative mg/dL [facility] PROTEIN:PRTHR:PT:URI NE:ORD:TEST STRIP Negative Negative mg/dL [facility] UROBILINOGEN:MCNC:PT :URINE:SEMIQN:TEST STRIP Negative Negative mg/dL [facility] Original Ordering Provider: DO [facility] with Microon 10-3 Bilirubin Ql (U) Negative Normal Negative [facility] Comment on above: Performed By: #### 4 [id number] #### [facility] [address] [place] [address] Clarity (U) Clear Normal Clear [facility] Comment on above: Performed By: #### 4 [id number] #### [facility] [address] [place] [address] Color (U) Colorless Abnormal Yellow [facility] Comment on above: Result Comment: Micr oscopic readings are only performed on those samples that meet specific criteria set forth by [facility]. Performed By: #### 4 [id number] #### [facility] [address] [place] [address] Glucose Ql (U) Negative Normal Negative [facility] Comment on above: Performed By: #### 4 [id number] #### [facility] [address] [place] [address] Hemoglobin Auto test strip (U) [Mass/Vol] Negative Normal Negative [facility] Comment on above: Performed By: #### 4 [id number] #### [facility] [address] [place] [address] Ketones Auto test strip Ql (U) Negative Normal Negative [facility] Comment on above: Performed By: #### 4 [id number] #### [facility] [address] [place] [address] Leukocyte esterase Auto test strip Ql (U) Negative Normal Negative [facility] Comment on above: Performed By: #### 4 [id number] #### [facility] [address] [place] [address] Nitrite Auto test strip Ql (U) Negative Normal Negative [facility] Comment on above: Performed By: #### 4 [id number] #### [facility] [address] [place] [address] pH (U) 6.0 [pH] Invalid Interpretation Code 5.0-9.0 [facility] Comment on above: Performed By: #### 4 [id number] #### [facility] [address] [place] [address] Protein Ql (U) Negative Normal Negative [facility] Comment on above: Performed By: #### 4 [id number] #### [facility] [address] [place] [address] Specific gravity (U) [Rel density] 1.010 Invalid Interpretation Code 1.005-1.030 [facility] Comment on above: Performed By: #### 4 [id number] #### [facility] [address] [place] [address] Urobilinogen (U) [Mass/Vol] Negative Normal Negative [facility] Comment on above: Performed By: #### 4 [id number] #### [facility] [address] [place] [address] Type of Urine collection method Goel Normal [facility] Comment on above: Performed By: #### 4 [id number] #### [facility] [address] [place] [address] ABO/Rh Retypeon 12-23-2023 ABO/Rh Retype Interp Positive Invalid Interpretation Code [facility] Comment on above: Performed By: #### 1 [id number] #### [facility] [address] [place] [address] BLOOD BANKOrdered By: Ivory Baltazar on 12-23-2023 ABO/Rh Retype Interp Positive Invalid Interpretation Code [facility] BB Subsection SEROLOGYOrdered By: Siomara pastor on 12-23-2023 HCG.beta subunit (U) [Moles/Vol] Negative Normal [facility] Man Sero U BetaHcg Qualon 12-23-2023 HCG.beta subunit (U) [Moles/Vol] Negative Normal [facility] Comment on above: Performed By: #### 2 [id number] #### [facility] [address] [place] [address] Vitamin D 25 Hydroxyon 11-10 25-hydroxyvitamin D3 [Mass/Vol] 11.8 ng/mL Low 30.0-100.0 [facility] Comment on above: Performed By: #### 5 [id number] #### [facility] [address] [place] [address] Ambulatory Visit Summaryon 0 11-10-2023 Ambulatory Visit Summary Ambulatory Visit Summary LILI BONDS :1995 Visit Date:11/10/2023 Ambulatory Visit Instructions Your Diagnosis Anemia Vitamin D deficiency Anxiety Bipolar disorder, unspecified PCOS (polycystic ovarian syndrome) BMI 36.0-36.9,adult Class 1 obesity due to excess calories in adult Smoker Vaping-related disorder Your Care Team Attending Physician - Nathaniel Esparza MD Primary Care Physician - Nathaniel Esparza MD. This Is Your Medications List Contact prescribing physician if questions or concerns cyanocobalamin (Vitamin B12) ergocalciferol (Vitamin D) Procedures Performed Bilateral tubal ligation, Cholecystectomy. Discharge Vitals Temperature (Oral) 36.8 ?C Heart Rate (Peripheral) 76 Respiratory Rate 16 Blood Pressure 110/72 Height 169.6 cm Height 67 in Weight 105.4 kg Weight 231.88 lb BMI 36.64 Medications What When Instructions Unchanged cyanocobalamin (Vitamin B12) Contact prescribing physician if questions or concerns Unchanged ergocalciferol (Vitamin D) Contact prescribing physician if questions or concerns Allergies morphine shellfish Problems Ongoing - Any problem that you are currently receiving treatment for. Anemia Anxiety Bipolar disorder, unspecified Calcium deficiency Family hx of alcoholism Ganglion cyst Herpes simplex type 2 infection Numbness and tingling PCOS (polycystic ovarian syndrome) Sleep disorder Tetrahydrocannabin ol (THC) use disorder, mild, abuse Vitamin D deficiency Patient Survey You may receive a survey via text or e-mail asking about your office visit. Please share your experience with us by completing your survey. We appreciate your feedback and thank you for choosing us for your care. Normal [facility] CBC w/ Auto Diffon 4 Basophils/100 WBC (Bld) 0.7 % Normal 0.0-2.0 [facility] Comment on above: Performed By: #### 2 [id number] #### [facility] [address] [place] [address] Basophils/Leukocytes Auto (Bld) [Pure # fraction] 0.0 E9/L Normal 0.0-0.2 [facility] Comment on above: Performed By: #### 2 [id number] #### [facility] [address] [place] [address] Eosinophils (Bld) [#/Vol] 0.1 E9/L Normal 0.0-0.5 [facility] Comment on above: Performed By: #### 2 [id number] #### [facility] [address] [place] [address] Eosinophils/100 WBC (Bld) 1.3 % Normal 0.0-8.0 [facility] Comment on above: Performed By: #### 2 [id number] #### [facility] [address] [place] [address] Erythrocyte distribution width (RBC) [Ratio] 13.7 % Normal 10.9-14.2 [facility] Comment on above: Performed By: #### 2 [id number] #### [facility] [address] [place] [address] Hematocrit (Bld) [Volume fraction] 41.1 % Normal 34.0-46.0 [facility] Comment on above: Performed By: #### 2 [id number] #### [facility] [address] [place] [address] Hemoglobin (Bld) [Mass/Vol] 13.8 g/dL Normal 12.0-16.0 [facility] Comment on above: Performed By: #### 2 [id number] #### [facility] [address] [place] [address] Lymphocytes (Bld) [#/Vol] 2.2 E9/L Normal 1.0-4.0 [facility] Comment on above: Performed By: #### 2 [id number] #### [facility] [address] [place] [address] Lymphocytes/100 WBC (Bld) 32.6 % Normal 14.0-50.0 [facility] Comment on above: Performed By: #### 2 [id number] #### [facility] [address] [place] [address] MCH (RBC) [Entitic mass] 28.2 pg Normal 27.0-34.0 [facility] Comment on above: Performed By: #### 2 [id number] #### [facility] [address] [place] [address] MCHC (RBC) [Mass/Vol] 33.7 g/dL Normal 31.4-36.0 [facility] Comment on above: Performed By: #### 2 [id number] #### [facility] [address] [place] [address] MCV (RBC) [Entitic vol] 83.9 fL Normal 80.0-100.0 [facility] Comment on above: Performed By: #### 2 [id number] #### [facility] [address] [place] [address] Monocytes (Bld) [#/Vol] 0.5 E9/L Normal 0.2-1.0 [facility] Comment on above: Performed By: #### 2 [id number] #### [facility] [address] [place] [address] Neutrophils (Bld) [#/Vol] 3.8 E9/L Normal 2.0-7.5 [facility] Comment on above: Performed By: #### 2 [id number] #### [facility] [address] [place] [address] Neutrophils/100 WBC (Bld) 57.2 % Normal 36.0-75.0 [facility] Comment on above: Performed By: #### 2 [id number] #### [facility] [address] [place] [address] Platelet mean volume (Bld) [Entitic vol] 9.5 fL Normal 6.4-10.8 [facility] Comment on above: Performed By: #### 2 [id number] #### [facility] [address] [place] [id number] Platelets (Bld) [#/Vol] 265.0 E9/L Normal 150.0-500.0 [facility] Comment on above: Performed By: #### 2 [id number] #### [facility] [address] [place] [address] RBC (Bld) [#/Vol] 4.9 E12/L Normal 4.3-5.9 [facility] Comment on above: Performed By: #### 2 [id number] #### [facility] [address] [place] [address] WBC corrected for nucl RBC Auto (Bld) [#/Vol] 6.7 E9/L Normal 4.0-11.0 [facility] Comment on above: Performed By: #### 2 [id number] #### [facility] [address] [place] [address] CHEMISTRYOrdered By: Osbaldo coles on 11-10-2023 25-hydroxyvitamin D3 [Mass/Vol] 11.8 ng/mL Low 30.0 - 100.0 ng/mL [facility] [place] Chem S CHEMISTRYOrdered By: SYSTEM SYSTEM on 11-10-2023 Albumin [Mass/Vol] 4.1 g/dL Normal 3.3 - 5.0 gm/dL R emisol Chem Albumin/Globulin [Mass ratio] 1.5 {ratio} Normal 1.1 - 2.2 Remisol Chem ALP [Catalytic activity/Vol] 69 [iU]/d Normal 21 - 98 Int._Unit/L Remisol Chem ALT No additional P-5'-P [Catalytic activity/Vol] 18 [iU]/d Normal 6 - 46 Int._Unit/L Remisol Chem Anion gap [Moles/Vol] 9 mmol/L Normal 6 - 16 mEq/L Remisol Chem AST [Catalytic activity/Vol] 15 [iU]/d Normal 5 - 43 Int._Unit/L Remisol Chem Bilirubin [Mass/Vol] 0.2 mg/dL Normal 0.0 - 1.1 mg/dL Remisol Chem Calcium [Mass/Vol] 9.3 mg/dL Normal 8.9 - 11.1 mg/dL Remisol Chem Chloride [Moles/Vol] 107 mmol/L Normal 101 - 111 mmol/ L Remisol Chem CO2 [Moles/Vol] 25 mmol/L Normal 21 - 31 mmol/L Remis ol Chem Creatinine [Mass/Vol] 0.5 mg/dL Normal 0.5 - 1.3 mg/dL Remisol Chem eGFR 129 mL/min/1.73 m2 Normal >=59mL/min/1.73 m 2 Remisol Chem Globulin (S) [Mass/Vol] 2.8 g/dL Normal 1.4 - 4.0 gm/dL Remisol Chem Glucose [Mass/Vol] 102 mg/dL Normal 55 - 199 mg/dL Re misol Chem Potassium [Moles/Vol] 4.3 mmol/L Normal 3.5 - 5.3 mmol/L Remisol Chem Protein [Mass/Vol] 6.9 g/dL Normal 6.0 - 7.8 gm/dL R emisol Chem Sodium [Moles/Vol] 137 mmol/L Normal 135 - 145 mmol/L Remisol Chem TSH Qn 1.89 m[IU]/L Normal 0.34 - 5.60 mcIU/mL Rem isol Chem Urea nitrogen [Mass/Vol] 10 mg/dL Normal 5 - 21 mg/dL Remisol Chem Urea nitrogen/Creatinine [Mass ratio] 20 mg/mg Normal 10 - 20 Remisol Chem CMPon 11-10-2023 Albumin [Mass/Vol] 4.1 g/dL Normal 3.3-5.0 [facility] Comment on above: Performed By: #### 2 [id number] #### [facility] [address] [place] [address] Albumin/Globulin (S) [Mass conc ratio] 1.5 Normal 1.1-2.2 [facility] Comment on above: Performed By: #### 2 [id number] #### [facility] [address] [place] [address] ALP [Catalytic activity/Vol] 69 Int._Unit/L Normal 21-98 [facility] Comment on above: Performed By: #### 2 [id number] #### [facility] [address] [place] [address] ALT No additional P-5'-P [Catalytic activity/Vol] 18 Int._Unit/L Normal 6-46 [facility] Comment on above: Performed By: #### 2 [id number] #### [facility] [address] [place] [address] Anion gap [Moles/Vol] 9 mmol/L Normal 6-16 [facility] Comment on above: Performed By: #### 2 [id number] #### [facility] [address] [place] [address] AST [Catalytic activity/Vol] 15 Int._Unit/L Normal 5-43 [facility] Comment on above: Performed By: #### 2 [id number] #### [facility] [address] [place] [address] Bilirubin [Mass/Vol] 0.2 mg/dL Normal 0.0-1.1 [facility] Comment on above: Performed By: #### 2 [id number] #### [facility] [address] [place] [address] Calcium [Mass/Vol] 9.3 mg/dL Normal 8.9-11.1 [facility] Comment on above: Performed By: #### 2 [id number] #### [facility] [address] [place] [address] Chloride [Moles/Vol] 107 mmol/L Normal 101-111 [facility] Comment on above: Performed By: #### 2 [id number] #### [facility] [address] [place] [address] CO2 [Moles/Vol] 25 mmol/L Normal 21-31 [facility] Comment on above: Performed By: #### 2 [id number] #### [facility] [address] [place] [address] Creatinine [Mass/Vol] 0.5 mg/dL Normal 0.5-1.3 [facility] Comment on above: Performed By: #### 2 [id number] #### [facility] [address] [place] [address] Globulin (S) [Mass/Vol] 2.8 g/dL Normal 1.4-4.0 [facility] Comment on above: Performed By: #### 2 [id number] #### [facility] [address] [place] [address] Glucose [Mass/Vol] 102 mg/dL Normal 55-199 [facility] Comment on above: Performed By: #### 2 [id number] #### [facility] [address] [place] [address] Potassium [Moles/Vol] 4.3 mmol/L Normal 3.5-5.3 [facility] Comment on above: Performed By: #### 2 796265 #### [facility] [address] [place] [address] Protein [Mass/Vol] 6.9 g/dL Normal 6.0-7.8 [facility] Comment on above: Performed By: #### 2 [id number] #### [facility] [address] [place] [address] Sodium [Moles/Vol] 137 mmol/L Normal 135-145 [facility] Comment on above: Performed By: #### 2 [id number] #### [facility] [address] [place] [address] Urea nitrogen [Mass/Vol] 10 mg/dL Normal 5-21 [facility] Comment on above: Performed By: #### 2 [id number] #### [facility] [address] [place] [address] Urea nitrogen/Creatinine [Mass ratio] 20 No Units Normal 10-20 [facility] Comment on above: Performed By: #### 2 [id number] #### [facility] [address] [place] [address] Family Medicine Office/Clini c Noteon 11-10-2023 Family Medicine Office/Clinic Note Family Medicine Office/Clinic Note HPI Staff Lili is a 28 year old female presenting for 3 month follow up w/ labs for anemia and vit D On vit B12 and D3, still feels blah and cloudy Did find out from gyne has PCOS questions/concerns : History of Present Illness See staff HPI. Review of Systems PHQ Score Initial Depression Screen Score: 1 SCORE Physical Exam Vitals & Measurements T: 36.8 ?C(Oral) HR: 76(Peripheral) RR: 16 BP: 110/72 SpO2: 97% HT: 67 in HT: 169.6 cm WT: 105.4 kg WT: 231.88 lb BMI: 36.64 General: alert, no acute distress ENMT: oral mucosa moist, Cardiovascular: regular rate and rhythm, normal peripheral perfusion Respiratory: Lungs CTA, respirations non labored Extremities: no deformity, no trauma Neurological: oriented x 4, LOC appropriate for age, CN II-XII intact, motor strength equal & normal bilaterally, speech normal Abdomen: Soft, Nontender, Non-distended, + BS Assessment/Plan 1. Anemia (D64.9: Anemia, unspecified) Last labs showed normal hemoglobin. Will recheck today. Ordered: Body Mass Index (BMI) documented 3008F CBC w/ Auto Diff Comprehensive Metabolic Panel Current tobacco smoker 1034F Depression Screening Negative 3352F Most recent diastolic blood pressure <80 mm Hg 3078F Systolic BP <130 mm Hg (Most Recent) 3074F TSH With T4fr Reflex Vitamin D 25 Hydroxy Vitamin D 25 Hydroxy 2. Vitamin D deficiency (E55.9: Vitamin D deficiency, unspecified) Will recheck vitamin D and refill medication as needed Ordered: Body Mass Index (BMI) documented 3008F CBC w/ Auto Diff Comprehensive Metabolic Panel Current tobacco smoker 1034F Depression Screening Negative 3352F Most recent diastolic blood pressure <80 mm Hg 3078F Systolic BP <130 mm Hg (Most Recent) 3074F TSH With T4fr Reflex Vitamin D 25 Hydroxy Vitamin D 25 Hydroxy 3. Anxiety (F41.9: Anxiety disorder, unspecified) Patient is not on any medication for anxiety. Do believe that this may be part of the cloudiness. Patient is going through a lot of changes with the family. But we will check labs before starting other medication. Ordered: CBC w/ Auto Diff Comprehensive Metabolic Panel TSH With T4fr Reflex Vitamin D 25 Hydroxy Vitamin D 25 Hydroxy 4. Bipolar disorder, unspecified (F31.9: Bipolar disorder, unspecified) As above Ordered: CBC w/ Auto Diff Comprehensive Metabolic Panel TSH With T4fr Reflex Vitamin D 25 Hydroxy Vitamin D 25 Hydroxy 5. PCOS (polycystic ovarian syndrome) (E28.2: Polycystic ovarian syndrome) Will check thyroid with the PCOS. Will discuss further once labs are done. Patient is getting a hysterectomy. Ordered: CBC w/ Auto Diff Comprehensive Metabolic Panel TSH With T4fr Reflex Vitamin D 25 Hydroxy Vitamin D 25 Hydroxy 6. BMI 36.0-36.9,adult (Z68.36: Body mass index [BMI] 36.0-36.9, adult) BMI education added. Ordered: Body Mass Index (BMI) documented 3008F CBC w/ Auto Diff Comprehensive Metabolic Panel Current tobacco smoker 1034F Depression Screening Negative 3352F Most recent diastolic blood pressure <80 mm Hg 3078F Systolic BP <130 mm Hg (Most Recent) 3074F TSH With T4fr Reflex Vitamin D 25 Hydroxy Vitamin D 25 Hydroxy 7. Class 1 obesity due to excess calories in adult (E66.09: Other obesity due to excess calories) Diet and exercise advised Ordered: Body Mass Index (BMI) documented 3008F CBC w/ Auto Diff Comprehensive Metabolic Panel Current tobacco smoker 1034F Depression Screening Negative 3352F Most recent diastolic blood pressure <80 mm Hg 3078F Systolic BP <130 mm Hg (Most Recent) 3074F TSH With T4fr Reflex Vitamin D 25 Hydroxy Vitamin D 25 Hydroxy 8. Smoker (F17.200: Nicotine dependence, unspecified, uncomplicated) Please stop smoking. Ordered: Body Mass Index (BMI) documented 3008F CBC w/ Auto Diff Comprehensive Metabolic Panel Current tobacco smoker 1034F Depression Screening Negative 3352F Most recent diastolic blood pressure <80 mm Hg 3078F Systolic BP <130 mm Hg (Most Recent) 3074F TSH With T4fr Reflex Vitamin D 25 Hydroxy Vitamin D 25 Hydroxy 9. Vaping-related disorder (U07.0: Vaping-related disorder) Please stop vaping. Ordered: Body Mass Index (BMI) documented 3008F CBC w/ Auto Diff Comprehensive Metabolic Panel Current tobacco smoker 1034F Depression Screening Negative 3352F Most recent diastolic blood pressure <80 mm Hg 3078F Systolic BP <130 mm Hg (Most Recent) 3074F TSH With T4fr Reflex Vitamin D 25 Hydroxy Vitamin D 25 Hydroxy Follow-up No qualifying data available Problem List/Past Medical History Ongoing Anemia Anxiety Bipolar disorder, unspecified Calcium deficiency Family hx of alcoholism Ganglion cyst Herpes simplex type 2 infection Numbness and tingling PCOS (polycystic ovarian syndrome) Sleep disorder Tetrahydrocannabin ol (THC) use disorder, mild, abuse Vitamin D deficiency Historical No quali (more content not included)... Normal [facility] Comment on above: Result Comment: Elec tronically Signed By: Isaias SHEEHAN, Nathaniel Robr\Date and Time Signed: 11/10/23 10:50 EDT HEMATOLOGYOrdered By: SYSTEM SYSTEM on 11-10-2023 Basophils/100 WBC (Bld) 0.7 % Normal 0.0 - 2.0 % Remisol Heme Basophils/Leukocytes Auto (Bld) [Pure # fraction] 0.0 E9/L Normal 0.0 - 0.2 E9/L Remisol Heme Eosinophils (Bld) [#/Vol] 0.1 E9/L Normal 0.0 - 0.5 E9/L Remisol Heme Eosinophils/100 WBC (Bld) 1.3 % Normal 0.0 - 8.0 % Remisol Heme Erythrocyte distribution width (RBC) [Ratio] 13.7 % Normal 10.9 - 14.2 % Remisol Heme Hematocrit (Bld) [Volume fraction] 41.1 % Normal 34.0 - 46.0 % Remisol Heme Hemoglobin (Bld) [Mass/Vol] 13.8 g/dL Normal 12.0 - 16.0 gm/dL Remisol Heme Lymphocytes (Bld) [#/Vol] 2.2 E9/L Normal 1.0 - 4.0 E9/L Remisol Heme Lymphocytes/100 WBC (Bld) 32.6 % Normal 14.0 - 50.0 % Remisol Heme MCH (RBC) [Entitic mass] 28.2 pg Normal 27.0 - 34.0 pg Remisol Heme MCHC (RBC) [Mass/Vol] 33.7 g/dL Normal 31.4 - 36.0 gm/dL Remisol Heme MCV (RBC) [Entitic vol] 83.9 fL Normal 80.0 - 100.0 fL Remisol Heme Monocytes (Bld) [#/Vol] 0.5 E9/L Normal 0.2 - 1.0 E9/L Remisol Heme Monocytes/100 WBC (Bld) 8.2 % Normal 4.0 - 14.0 % Remisol Heme Neutrophils (Bld) [#/Vol] 3.8 E9/L Normal 2.0 - 7.5 E9/L Remisol Heme Neutrophils/100 WBC (Bld) 57.2 % Normal 36.0 - 75.0 % Remisol Heme Platelet mean volume (Bld) [Entitic vol] 9.5 fL Normal 6.4 - 10.8 fL Remisol Heme Platelets (Bld) [#/Vol] 265.0 E9/L Normal 150.0 - 500.0 E9/L Remisol Heme RBC (Bld) [#/Vol] 4.9 E12/L Normal 4.3 - 5.9 E12/L Re misol Heme WBC corrected for nucl RBC Auto (Bld) [#/Vol] 6.7 E9/L Normal 4.0 - 11.0 E9/L Remisol Heme TSH With T4fr Reflexon 11-09 TSH Qn 1.89 m[IU]/L Normal 0.34-5.60 [facility] Comment on above: Performed By: #### 1 [id number] #### [facility] [address] [place] [address] eGFRon 11-10-2023 eGFR 129 mL/min/1.73 m2 Normal >=59 [facility] Comment on above: Order Comment: Order added by Discern Expert. Performed By: #### 1 [id number] #### [facility] [address] [place] [address] DHEASon 09-13-2023 DHEA-S [Mass/Vol] 219.0 microgram/dL Invalid Interpretation Code 84.8-378.0 [facility] Comment on above: Result Comment: Perf ormed at: [facility] [id number] [place], [place] [id number] PhD Quinton White Performed By: #### 1 [id number] #### [facility] [address] [place] [address] FSHon 09-13-2023 Follitropin Qn 8.2 m[IU]/mL Invalid Interpretation Code [facility] Comment on above: Result Comment: Adul t Female Range Follicular phase 3.5 - 12.5 Ovulation phase 4.7 - 21.5 Luteal phase 1.7 - 7.7 Postmenopausal 25.8 - 134.8 Performed at: [facility] [address] [place], [place] [id number] PhD Quinton White Performed By: #### 2 [id number] #### [facility] [address] [place] [address] Testosterone F&Ton Testosterone [Mass/Vol] 48 ng/dL Invalid Interpretation Code 71 [facility] Comment on above: Performed By: #### 1 [id number] #### [facility] [address] [place] [address] Testosterone Free [Mass/Vol] 1.9 pg/mL Invalid Interpretation Code 0.0-4.2 [facility] Comment on above: Result Comment: Perf ormed at: [address] [id number] PhD Quinton White Performed at: [address] [id number] MD Gregg Barajas Performed By: #### 1 [id number] #### [facility] [address] [place] [address] CHEMISTRYOrdered By: SYSTEM SYSTEM on 09-10-2023 Albumin [Mass/Vol] 4.2 g/dL Normal 3.3 - 5.0 gm/dL R emisol Chem Albumin/Globulin [Mass ratio] 1.4 {ratio} Normal 1.1 - 2.2 Remisol Chem ALP [Catalytic activity/Vol] 70 [iU]/d Normal 21 - 98 Int._Unit/L Remisol Chem ALT No additional P-5'-P [Catalytic activity/Vol] 19 [iU]/d Normal 6 - 46 Int._Unit/L Remisol Chem Anion gap [Moles/Vol] 8 mmol/L Normal 6 - 16 mEq/L Remisol Chem AST [Catalytic activity/Vol] 13 [iU]/d Normal 5 - 43 Int._Unit/L Remisol Chem Bilirubin [Mass/Vol] 0.2 mg/dL Normal 0.0 - 1.1 mg/dL Remisol Chem Calcium [Mass/Vol] 9.2 mg/dL Normal 8.9 - 11.1 mg/dL Remisol Chem Chloride [Moles/Vol] 106 mmol/L Normal 101 - 111 mmol/ L Remisol Chem CO2 [Moles/Vol] 29 mmol/L Normal 21 - 31 mmol/L Remis ol Chem Creatinine [Mass/Vol] 0.7 mg/dL Normal 0.5 - 1.3 mg/dL Remisol Chem eGFR 119 mL/min/1.73 m2 Normal >=59mL/min/1.73 m 2 Remisol Chem Globulin (S) [Mass/Vol] 2.9 g/dL Normal 1.4 - 4.0 gm/dL Remisol Chem Glucose [Mass/Vol] 96 mg/dL Normal 55 - 199 mg/dL Re misol Chem Potassium [Moles/Vol] 4.1 mmol/L Normal 3.5 - 5.3 mmol/L Remisol Chem Protein [Mass/Vol] 7.1 g/dL Normal 6.0 - 7.8 gm/dL R emisol Chem Sodium [Moles/Vol] 139 mmol/L Normal 135 - 145 mmol/L Remisol Chem TSH Qn 1.91 m[IU]/L Normal 0.34 - 5.60 mcIU/mL Rem isol Chem Urea nitrogen [Mass/Vol] 9 mg/dL Normal 5 - 21 mg/dL Remisol Chem Urea nitrogen/Creatinine [Mass ratio] 13 mg/mg Normal 10 - 20 Remisol Chem CMPon 09-10-2023 Albumin [Mass/Vol] 4.2 g/dL Normal 3.3-5.0 [facility] Comment on above: Performed By: #### 2 [id number] #### [facility] [address] [place] [address] Albumin/Globulin (S) [Mass conc ratio] 1.4 Normal 1.1-2.2 [facility] Comment on above: Performed By: #### 2 [id number] #### [facility] [address] [place] [address] ALP [Catalytic activity/Vol] 70 Int._Unit/L Normal 21-98 [facility] Comment on above: Performed By: #### 2 [id number] #### [facility] [address] [place] [address] ALT No additional P-5'-P [Catalytic activity/Vol] 19 Int._Unit/L Normal 6-46 [facility] Comment on above: Performed By: #### 2 [id number] #### [facility] [address] [place] [address] Anion gap [Moles/Vol] 8 mmol/L Normal 6-16 [facility] Comment on above: Performed By: #### 2 [id number] #### [facility] [address] [place] [address] AST [Catalytic activity/Vol] 13 Int._Unit/L Normal 5-43 [facility] Comment on above: Performed By: #### 2 [id number] #### [facility] [address] [place] [address] Bilirubin [Mass/Vol] 0.2 mg/dL Normal 0.0-1.1 [facility] Comment on above: Performed By: #### 2 [id number] #### [facility] [address] [place] [address] Calcium [Mass/Vol] 9.2 mg/dL Normal 8.9-11.1 [facility] Comment on above: Performed By: #### 2 076521 #### [facility] [address] [place] [address] Chloride [Moles/Vol] 106 mmol/L Normal 101-111 [facility] Comment on above: Performed By: #### 2 [id number] #### [facility] [address] [place] [address] CO2 [Moles/Vol] 29 mmol/L Normal 21-31 [facility] Comment on above: Performed By: #### 2 [id number] #### [facility] [address] [place] [address] Creatinine [Mass/Vol] 0.7 mg/dL Normal 0.5-1.3 [facility] Comment on above: Performed By: #### 2 [id number] #### [facility] [address] [place] [address] Globulin (S) [Mass/Vol] 2.9 g/dL Normal 1.4-4.0 [facility] Comment on above: Performed By: #### 2 [id number] #### [facility] [address] [place] [address] Glucose [Mass/Vol] 96 mg/dL Normal 55-199 [facility] Comment on above: Performed By: #### 2 [id number] #### [facility] [address] [place] [address] Potassium [Moles/Vol] 4.1 mmol/L Normal 3.5-5.3 [facility] Comment on above: Performed By: #### 2 [id number] #### [facility] [address] [place] [address] Protein [Mass/Vol] 7.1 g/dL Normal 6.0-7.8 [facility] Comment on above: Performed By: #### 2 [id number] #### [facility] [address] [place] [address] Sodium [Moles/Vol] 139 mmol/L Normal 135-145 [facility] Comment on above: Performed By: #### 2 [id number] #### [facility] [address] [place] [address] Urea nitrogen [Mass/Vol] 9 mg/dL Normal 5-21 [facility] Comment on above: Performed By: #### 2 [id number] #### [facility] [address] [place] [address] Urea nitrogen/Creatinine [Mass ratio] 13 No Units Normal 10-20 [facility] Comment on above: Performed By: #### 2 [id number] #### [facility] [address] [place] [address] TSH With T4fr Reflexon 09-09 TSH Qn 1.91 m[IU]/L Normal 0.34-5.60 [facility] Comment on above: Performed By: #### 1 [id number] #### [facility] [address] [place] [address] eGFRon 09-10-2023 eGFR 119 mL/min/1.73 m2 Normal >=59 [facility] Comment on above: Order Comment: Order added by Discern Expert. Performed By: #### 1 [id number] #### [facility] [address] [place] [address] Ambulatory Visit Summaryon 0 08-17-2023 Ambulatory Visit Summary LILI BONDS :1995 Visit Date:08/17/2023 Ambulatory Visit Instructions Your Diagnosis Anemia Sleep disorder Vitamin D deficiency BMI 36.0-36.9,adult Class 1 obesity due to excess calories in adult Vaping-related disorder Your Care Team Attending Physician - Nathaniel Esparza MD Primary Care Physician - Nathaniel Esparza MD This Is Your Medications List Contact prescribing physician if questions or concerns cyanocobalamin (Vitamin B12) ergocalciferol (Vitamin D) Procedures Performed Bilateral tubal ligation, Cholecystectomy. Discharge Vitals Temperature (Temporal Artery) 37.0 ?C Heart Rate (Peripheral) 82 Respiratory Rate 16 Blood Pressure 110/78 Height 169.6 cm Height 67 in Weight 106.4 kg Weight 234.08 lb BMI 36.99 What to do next Scheduled Follow-Up Appointments Thursday 10:00 AM EDT With: Niharika Choudhury Where: [facility] Normal [address] [id number]- \.br\ Medications\.br\ What When Instructions\.br\ Unchanged cyanocobalamin (Vitamin B12) Contact prescribing physician if questions or concerns \.br\ Unchanged ergocalciferol (Vitamin D) Contact prescribing physician if questions or concerns \.br\ Allergies\.br\ morphine\.br\ shellfish\.br\ Problems\.br\ Ongoing - Any problem that you are currently receiving treatment for.\.br\ Anemia\.br\ Anxiety\.br\ Bipolar disorder, unspecified\.br\ Calcium deficiency\.br\ Depression\.br\ Family hx of alcoholism\.br\ Ganglion cyst\.br\ Herpes simplex type 2 infection\.br\ Numbness and tingling\.br\ Sleep disorder\.br\ Tetrahydrocannabinol (THC) use disorder, mild, abuse\.br\ Vitamin D deficiency\.br\ Patient Survey\.br\ You may receive a survey via text or e-mail asking about your office visit. Please share your experience with us by completing your survey. We appreciate your feedback and thank you for choosing us for your care.\.br\ Education Materials\.br\ BMI for Adults\.br\ What is BMI?\.br\ Body mass index (BMI) is a number that is calculated from a person's weight and height. BMI can help estimate how much of a person's weight is composed of fat. BMI does not measure body fat directly. Rather, it is an alternative to procedures that directly measure body fat, which can be difficult and expensive.\.br\ BMI can help identify people who may be at higher risk for certain medical problems.\.br\ What are BMI measurements used for?\.br\ BMI is used as a screening tool to identify possible weight problems. It helps determine whether a person is obese, overweight, a healthy weight, or underweight.\.br\ BMI is useful for:\.br\ ? \.br\ Identifying a weight problem that may be related to a medical condition or may increase the risk for medical problems.\.br\ ? \.br\ Promoting changes, such as changes in diet and exercise, to help reach a healthy weight. BMI screening can be repeated to see if these changes are working.\.br\ How is BMI calculated?\.br\ BMI involves measuring your weight in relation to your height. Both height and weight are measured, and the BMI is calculated from those numbers. This can be done either in [place] or metric measurements. Note that charts and online BMI calculators are available to help you find your BMI quickly and easily without having to do these calculations yourself.\.br\ To calculate your BMI in [place] measurements:\.br\ \.br\ 1. \.br\ Measure your weight in pounds (lb).\.br\ 2. \.br\ Multiply the number of pounds by 703.\.br\ ? \.br\ For example, for a person who weighs 180 lb, multiply that number by 703, which equals 126,540.\.br\ 3. \.br\ Measure your height in inches. Then multiply that number by itself to get a measurement called inches squared. \.br\ ? \.br\ For example, for a person who is 70 inches tall, the inches squared measurement is 70 inches x 70 inches, which equals 4,900 inches squared.\.br\ 4. \.br\ Divide the total from step 2 (number of lb x 703) by the total from step 3 (inches squared): 126,540 ? 4,900 = 25.8. This is your BMI.\.br\ To calculate your BMI in metric measurements:\.br\ 1. \.br\ Measure your weight in kilograms (kg).\.br\ 2. \.br\ Measure your height in meters (m). Then multiply that number by itself to get a measurement called meters squared. \.br\ ? \.br\ For example, for a person who is 1.75 m tall, the meters squared measurement is 1.75 m x 1.75 m, which is equal to 3.1 meters squared.\.br\ 3. \.br\ Divide the number of kilograms (your weight) by the meters squared number. In this example: 70 ? 3.1 = 22.6. This is your BMI.\.br\ What do the results mean?\.br\ BMI charts are used to identify whether you are underweight, normal weight, overweight, or obese. The following guidelines will be used:\.br\ ? \.br\ Underweight: BMI less than 18.5.\.br\ ? \.br\ Normal weight: BMI between 18.5 and 24.9.\.br\ ? \.br\ Overweight: BMI between 25 and 29.9.\.br\ ? \.br\ Obese: BMI of 30 or above.\.br\ Keep these notes in mind:\.br\ ? \.br\ Weight includes both fat and muscle, so someone with a muscular build, such as an athlete, may have a BMI that is higher than 24.9. In cases like these, BMI is not an accurate measure of body fat.\.br\ ? \.br\ To determine if excess body fat is the cause of a BMI of 25 or higher, further assessments may need to be done by a health care provider.\.br\ ? \.br\ BMI is usually interpreted in the same way for men and women.\.br\ Where to find more information\.br\ For more information about BMI, including tools to quickly calculate your BMI, go to these websites:\.br\ ? \.br\ Centers for Disease Control and Prevention: www.cdc.gov\.br\ ? \.br\ [place] Heart [employer]: www.heart.org\.br\ ? \.br\ National Heart, Lung, and Blood [place]: www.nhlbi.nih.gov\.br \ Summary\.br\ ? \.br\ Body mass index (BMI) is a number that is calculated from a person's weight and height.\.br\ ? \.br\ BMI may help estimate how much of a person's weight is composed of fat. BMI can help identify those who may be at higher risk for certain medical problems.\.br\ ? \.br\ BMI can be measured using [place] measurements or metric measurements.\.br\ ? \.br\ BMI charts are used to identify whether you are underweight, normal weight, overweight, or obese.\.br\ This information is not intended to replace advice given to you by your health care provider. Make sure you discuss any questions you have with your health care provider.\.br\ Document Revised: 11/02/2019 Document Reviewed: 09/09/2019 ADP Patient Education ? 2022 [employer].\.br\ \.br\ [facility] Family Medicine Office/Clini c Noteon 08-17-2023 Family Medicine Office/Clinic Note HPI Staff Lili is a 28 year old female presenting for 2 month follow up test results Had EMG 06/18 to review re: numbness and tingling questions/concerns : History of Present Illness - Here for recheck. - Been taking the vitamin D - Pt states she is falling asleep in the afternoon a lot. - She is worried this is a sign of low vitamin D - Does not get outside at all. Review of Systems PHQ Score Initial Depression Screen Score: 1 SCORE Physical Exam Vitals & Measurements T: 37.0 ?C(Temporal Artery) HR: 82(Peripheral) RR: 16 BP: 110/78 SpO2: 99% HT: 67 in HT: 169.6 cm WT: 106.4 kg WT: 234.08 lb BMI: 36.99 General: alert, no acute distress ENMT: oral mucosa moist, Cardiovascular: regular rate and rhythm, normal peripheral perfusion Respiratory: Lungs CTA, respirations non labored Extremities: no deformity, no trauma Neurological: oriented x 4, LOC appropriate for age, CN II-XII intact, motor strength equal & normal bilaterally, speech normal Abdomen: Soft, Nontender, Non-distended, + BS Assessment/Plan 1. Anemia (D64.9: Anemia, unspecified) - Possibly the cause of the RLS - Take Oral iron suppilemtn Ordered: Sleep Study Baseline 2. Sleep disorder (G47.9: Sleep disorder, unspecified) - Will do a sleep study Ordered: Sleep Study Baseline 3. Vitamin D deficiency (E55.9: Vitamin D deficiency, unspecified) - Will recheck after the summer Ordered: Sleep Study Baseline 4. BMI 36.0-36.9,adult (Z68.36: Body mass index [BMI] 36.0-36.9, adult) - BMI education given Ordered: Body Mass Index (BMI) documented 3008F Current tobacco smoker 1034F Depression Screening Negative 3352F Most recent diastolic blood pressure <80 mm Hg 3078F Sleep Study Baseline Systolic BP <130 mm Hg (Most Recent) 3074F 5. Class 1 obesity due to excess calories in adult (E66.09: Other obesity due to excess calories) - Diet and exercise advised Ordered: Body Mass Index (BMI) documented 3008F Current tobacco smoker 1034F Depression Screening Negative 3352F Most recent diastolic blood pressure <80 mm Hg 3078F Sleep Study Baseline Systolic BP <130 mm Hg (Most Recent) 3074F 6. Vaping-related disorder (U07.0: Vaping-related disorder) - Please stop vaping Ordered: Body Mass Index (BMI) documented 3008F Current tobacco smoker 1034F Depression Screening Negative 3352F Most recent diastolic blood pressure <80 mm Hg 3078F Sleep Study Baseline Systolic BP <130 mm Hg (Most Recent) 3074F Follow-up No qualifying data available Patient Education BMI for Adults Problem List/Past Medical History Ongoing Anemia Anxiety Bipolar disorder, unspecified Calcium deficiency Depression Family hx of alcoholism Ganglion cyst Herpes simplex type 2 infection Numbness and tingling Sleep disorder Tetrahydrocannabin ol (THC) use disorder, mild, abuse Vitamin D deficiency Historical No qualifying data Procedure/Surgical History Bilateral tubal ligation, Cholecystectomy. Medications Vitamin B12 Vitamin D Allergies morphine shellfish Social History Tobacco 4 or less cigarettes(less than 1/4 pack)/day in last 30 days Tobacco Use:. Current vaping or e-cigarette use Smokeless Tobacco Use:. Vaping, Yes, 08/17/2023 Family History Acute myocardial infarction: Father. Alcoholism: Father. Anxiety: Mother. Depression: Mother. Diabetes mellitus type 2: Father. Hypertension: Mother and Father. Primary malignant neoplasm of bladder: Mother. Primary malignant neoplasm of colon: Grandparent. Immunizations Vaccine Date Status measles/mumps/rube lla virus vaccine 07/11/1998 Recorded hepatitis B pediatric vaccine 04/26/1996 Recorded DTaP, unspecified formulation 04/26/1996 Recorded measles/mumps/rube lla virus vaccine 02/22/1996 Recorded hepatitis B pediatric vaccine 02/22/1996 Recorded Hib, unspecified formulation 02/22/1996 Recorded hepatitis B pediatric vaccine 1993 Recorded Hib, unspecified formulation 1993 Recorded Normal [facility] Comment on above: Result Comment: Elec tronically Signed By: Isaias SHEEHAN, Nathaniel Everett\.br\Date and Time Signed: 08/17/23 14:42 EDT Patient Educationon 08-17-19 Patient Education Nutrition BMI for Adults What [...] numbers. This can be done either in [place] or metric measurements. Note that charts and online BMI calculators are available to help you find your BMI quickly and easily without having to do these calculations yourself. To calculate your BMI in [place] measurements: 1. Measure your weight in [...] for Disease Control and Prevention: www.cdc.gov ? [place] Heart Association: www.heart.org ? National Heart, Lung, and Blood [place]: www.nhlbi.nih.gov Summary ? Body mass index (BMI) is a number that is calculated from a person's weight and height. ? BMI may help estimate how much of a person's weight is composed of fat. BMI can help identify those who may be at higher risk for certain medical problems. ? BMI can be measured using [place] measurements or metric measurements. ? BMI charts are used to identify whether you are underweight, normal weight, overweight, or obese. This information is not intended to replace advice given to you by your health care provider. Make sure you discuss any questions you have with your health care provider. Document Revised: 11/02/2019 Document Reviewed: 09/09/2019 ADP Patient Education ? 2022 [employer]. Normal [facility] Consent for Treatmenton 05-25 Consent for Treatment [id number]#1.00TIFF Normal [facility] EMG Electromyographyon 06-18 EMG Electromyography [id number]#1.00TIFF [facility] Ambulatory Visit Summaryon 0 06-02-2023 Ambulatory Visit Summary LILI BONDS :1995 Visit Date:06/02/2023 Ambulatory Visit Instructions Your Diagnosis Numbness and tingling Vitamin D deficiency BMI 36.0-36.9,adult Your Care Team Attending Physician - Nathaniel Esparza MD Primary Care Physician - Nathaniel Esparza MD. This Is Your Medications List ergocalciferol (Vitamin D) Procedures Performed Bilateral tubal ligation, Cholecystectomy. Discharge Vitals Heart Rate (Peripheral) 77 Blood Pressure 130/70 Height 169.6 cm Height 67 in Weight 105.3 kg Weight 231.66 lb BMI 36.61 What to do next Scheduled Follow-Up Appointments Thursday 9:30 AM EDT With: Where: Neurology Clinic Thursday 9:30 AM EDT With: Where: Neurology Clinic Thursday 10:00 AM EDT With: Niharika Choudhury Where: [facility] 2023 9:30 AM EDT With: Nathaniel Esparza MD Where: [facility] Family [facility] [place] Normal [facility] Medicine Office/Clini c Noteon 06-02-2023 [facility] Medicine Office/Clinic Note Chief Complaint lab follow up HPI Staff Lili is a 28 year old female presenting for one month follow up Labs 04/27, vitamin D level low 14.3 SAMIRA ordered EMG- Appointments 06/14 and 06/18 History of Present Illness Pt here for follow up. - Has not had the EMGs yet. - Still having tingling. - No other issues. - Wants to discuss labs. Review of Systems PHQ Score Initial Depression Screen Score: 3 SCORE Physical Exam Vitals & Measurements HR: 77(Peripheral) BP: 130/70 SpO2: 97% HT: 67 in HT: 169.6 cm WT: 105.3 kg WT: 231.66 lb BMI: 36.61 General: alert, no acute distress ENMT: oral mucosa moist, Cardiovascular: normal peripheral perfusion Respiratory: respirations non labored Extremities: no deformity, no trauma Neurological: oriented x 4, LOC appropriate for age, CN II-XII intact, motor strength equal & normal bilaterally, speech normal Assessment/Plan 1. Numbness and tingling (R20.0: Anesthesia of skin) Pt is scheduled for EMG. Will address after. 2. Vitamin D deficiency (E55.9: Vitamin D deficiency, unspecified) OTC vitamin D started. - Will recheck calcium and Vit D at that time 3. BMI 36.0-36.9,adult (Z68.36: Body mass index [BMI] 36.0-36.9, adult) - BMI education given. 4. Calcium deficiency (E58: Dietary calcium deficiency) - Will recheck with the Vitamin D Level. Follow-up No qualifying data available Problem List/Past Medical History Ongoing Anemia Anxiety Bipolar disorder, unspecified Calcium deficiency Depression Family hx of alcoholism Ganglion cyst Herpes simplex type 2 infection Numbness and tingling Sleep disorder Tetrahydrocannabin ol (THC) use disorder, mild, abuse Vitamin D deficiency Historical No qualifying data Procedure/Surgical History Bilateral tubal ligation, Cholecystectomy. Medications Vitamin D Allergies morphine shellfish Social History Tobacco 4 or less cigarettes(less than 1/4 pack)/day in last 30 days Tobacco Use:. Current vaping or e-cigarette use Smokeless Tobacco Use:. Vaping, Yes, 06/02/2023 Family History Acute myocardial infarction: Father. Alcoholism: Father. Anxiety: Mother. Depression: Mother. Diabetes mellitus type 2: Father. Hypertension: Mother and Father. Primary malignant neoplasm of bladder: Mother. Primary malignant neoplasm of colon: Grandparent. Immunizations Vaccine Date Status measles/mumps/rube lla virus vaccine 07/11/1998 Recorded hepatitis B pediatric vaccine 04/26/1996 Recorded DTaP, unspecified formulation 04/26/1996 Recorded measles/mumps/rube lla virus vaccine 02/22/1996 Recorded hepatitis B pediatric vaccine 02/22/1996 Recorded Hib, unspecified formulation 02/22/1996 Recorded hepatitis B pediatric vaccine 1993 Recorded Hib, unspecified formulation 1993 Recorded Normal [facility] Comment on above: Result Comment: Elec tronically Signed By: Isaias SHEEHAN, Nathaniel Reilly.br\Date and Time Signed: 06/02/23 11:55 EDT CBC w/ Auto Diffon 4 Basophils/100 WBC (Bld) 0.7 % Normal 0.0-2.0 [facility] Comment on above: Performed By: #### 5 [id number], 2887203, 9630197, 0514746, 13104163, 3990128, 32294735 ####[facility] [address] [place] [address] Basophils/Leukocytes Auto (Bld) [Pure # fraction] 0.0 E9/L Normal 0.0-0.2 [facility] Comment on above: Performed By: #### 5 [id number], 2817365, 8350109, 7638644, 19828615, 0940583, 83526837 ####[facility] [address] [place], [place] [address] Eosinophils (Bld) [#/Vol] 0.1 E9/L Normal 0.0-0.5 [facility] Comment on above: Performed By: #### 5 50881238, 8145682, 7142944, 4343340, 86206119, 9366638, 73753376 ####[place] [address] Eosinophils/100 WBC (Bld) 1.4 % Normal 0.0-8.0 [facility] Comment on above: Performed By: #### 5 99364705, 6196878, 2496379, 9325892, 17817359, 7999554, 89116049 ####[place] [address] Erythrocyte distribution width (RBC) [Ratio] 14.4 % High 10.9-14.2 [facility] Comment on above: Performed By: #### 5 83828446, 3423318, 9398779, 3121236, 10143025, 0316147, 57787927 ####[place] [address] Hematocrit (Bld) [Volume fraction] 41.0 % Normal 34.0-46.0 [facility] Comment on above: Performed By: #### 5 52228665, 7251744, 5789833, 2047483, 14951581, 3998128, 72733010 ####[place] [address] Hemoglobin (Bld) [Mass/Vol] 13.4 g/dL Normal 12.0-16.0 [facility] Comment on above: Performed By: #### 5 77380796, 4559913, 8457161, 6880444, 51762375, 3301770, 78923676 ####[address] [address] Lymphocytes (Bld) [#/Vol] 1.8 E9/L Normal 1.0-4.0 [facility] Comment on above: Performed By: #### 5 15485314, 9558591, 9646021, 3360904, 50246077, 2531666, 53088588 ####[place] [address] [place] [address] Lymphocytes/100 WBC (Bld) 29.9 % Normal 14.0-50.0 [facility] Comment on above: Performed By: #### 5 93887282, 5394206, 7438108, 4005339, 67552738, 1423026, 51813694 ####[address] [address] MCH (RBC) [Entitic mass] 27.4 pg Normal 27.0-34.0 [facility] Comment on above: Performed By: #### 5 31404965, 7099025, 0569377, 1556597, 24604120, 7665829, 22621662 ####[address] [address] MCHC (RBC) [Mass/Vol] 32.7 g/dL Normal 31.4-36.0 [facility] Comment on above: Performed By: #### 5 23077404, 6902924, 3197770, 0133773, 70420530, 0043492, 79712803 ####[address] [address] MCV (RBC) [Entitic vol] 83.6 fL Normal 80.0-100.0 [facility] Comment on above: Performed By: #### 5 92986371, 4962370, 6389731, 8459937, 97081728, 5045367, 35314785 ####[address] [address] Monocytes (Bld) [#/Vol] 0.5 E9/L Normal 0.2-1.0 [facility] Comment on above: Performed By: #### 5 43382202, 2755826, 5497019, 7432410, 82217545, 6821788, 67513002 ####[address] [place] [address] Neutrophils (Bld) [#/Vol] 3.6 E9/L Normal 2.0-7.5 [facility] Comment on above: Performed By: #### 5 62025323, 3623804, 1161178, 2498299, 84539934, 1768191, 42286425 ####[place] [address] Neutrophils/100 WBC (Bld) 60.1 % Normal 36.0-75.0 [facility] Comment on above: Performed By: #### 5 35556188, 6456504, 2926996, 1591567, 42363336, 3756816, 17959342 ####[place] [address] Platelet 288.0 E9/L Normal 150.0-500.0 [facility] Comment on above: Performed By: #### 5 26661321, 5653726, 1376673, 5926291, 07756581, 2946168, 32749945 ####[address] [address] Platelet mean volume (Bld) [Entitic vol] 9.4 fL Normal 6.4-10.8 [facility] Comment on above: Performed By: #### 5 43585375, 4792650, 5283528, 2940205, 04778883, 5910153, 61002538 ####[place] [address] RBC (Bld) [#/Vol] 4.9 E12/L Normal 4.3-5.9 [facility] Comment on above: Performed By: #### 5 44457831, 2027351, 9377727, 9584402, 60897808, 2985340, 33755267 ####[address] [address] WBC corrected for nucl RBC Auto (Bld) [#/Vol] 6.0 E9/L Normal 4.0-11.0 [facility] Comment on above: Performed By: #### 5 75882209, 9670307, 4627911, 5609100, 98406563, 0773552, 78114192 ####[facility] [address] [place] [address] CMPon 04-28-2023 Albumin [Mass/Vol] 4.2 g/dL Normal 3.3-5.0 [facility] Comment on above: Performed By: #### 5 05522990, 6302994, 4134608, 4051408, 73970894, 3512470, 95109999 ####[place] [address] [place] [address] Albumin/Globulin (S) [Mass conc ratio] 1.5 Normal 1.1-2.2 [facility] Comment on above: Performed By: #### 5 05820090, 4122464, 6719646, 8955058, 32911982, 4222981, 13900841 ####[place] [address] [place] [address] ALP [Catalytic activity/Vol] 66 Int._Unit/L Normal 21-98 [facility] Comment on above: Performed By: #### 5 01626114, 9882621, 3278362, 7183453, 81329911, 7999930, 27450159 ####[address] [address] ALT No additional P-5'-P [Catalytic activity/Vol] 18 Int._Unit/L Normal 6-46 [facility] Comment on above: Performed By: #### 5 80594396, 3689937, 0688126, 8095029, 54994968, 5234318, 48509093 ####[place] [address] [place] [address] Anion gap [Moles/Vol] 11 mmol/L Normal 6-16 [facility] Comment on above: Performed By: #### 5 35474642, 7888544, 3661443, 1665052, 30350453, 4725678, 20729047 ####[facility] [address] [place] [address] AST [Catalytic activity/Vol] 14 Int._Unit/L Normal 5-43 [facility] Comment on above: Performed By: #### 5 10632392, 0548748, 8293164, 0070241, 81518689, 9675710, 10798735 ####[facility] [address] [place] [address] Bilirubin [Mass/Vol] 0.3 mg/dL Normal 0.0-1.1 [facility] Comment on above: Performed By: #### 5 14408801, 5979541, 4438682, 7770356, 66496032, 2891439, 68133376 ####[facility] [address] [place] [address] Calcium [Mass/Vol] 8.8 mg/dL Low 8.9-11.1 [facility] Comment on above: Performed By: #### 5 79605872, 0388738, 7201189, 4238532, 03875319, 2967660, 92848613 ####[facility] [address] [place] [address] Chloride [Moles/Vol] 109 mmol/L Normal 101-111 [facility] Comment on above: Performed By: #### 5 42849198, 9946969, 8773951, 5307366, 23868803, 4278881, 09590277 ####[facility] [address] [place] [address] CO2 [Moles/Vol] 20 mmol/L Low 21-31 [facility] Comment on above: Performed By: #### 5 16933134, 2778566, 5653417, 7135056, 14352554, 5577178, 24065224 ####[facility] [address] [place] [address] Creatinine [Mass/Vol] 0.6 mg/dL Normal 0.5-1.3 [facility] Comment on above: Performed By: #### 5 37397879, 4802307, 6601416, 5911592, 52344241, 3230690, 04156803 ####[facility] [address] [place] [address] Globulin (S) [Mass/Vol] 2.8 g/dL Normal 1.4-4.0 [facility] Comment on above: Performed By: #### 5 04849761, 6827787, 5743324, 7843204, 66868425, 2160300, 03269654 ####[facility] [address] [place] [address] Glucose [Mass/Vol] 95 mg/dL Normal 55-199 [facility] Comment on above: Performed By: #### 5 82589535, 2089579, 5287643, 0687632, 95975452, 9879095, 40369568 ####[facility] [address] [place] [address] Potassium [Moles/Vol] 4.2 mmol/L Normal 3.5-5.3 [facility] Comment on above: Performed By: #### 5 56605887, 8548858, 9811919, 1911755, 89568177, 6458604, 88108218 ####[facility] [address] [place] [address] Protein [Mass/Vol] 7.0 g/dL Normal 6.0-7.8 [facility] Comment on above: Performed By: #### 5 27884103, 9692987, 0292460, 8122453, 89315326, 5588178, 59642645 ####[facility] [address] [place] [address] Sodium [Moles/Vol] 136 mmol/L Normal 135-145 [facility] Comment on above: Performed By: #### 5 93981733, 6454478, 5270050, 0082264, 21689217, 1054102, 78552267 ####[facility] [address] [place] [address] Urea nitrogen [Mass/Vol] 7 mg/dL Normal 5-21 [facility] Comment on above: Performed By: #### 5 42211303, 6489819, 3716116, 4328563, 84590415, 1079485, 16398954 ####[facility] [address] [place] [address] Urea nitrogen/Creatinine [Mass ratio] 12 No Units Normal 10-20 [facility] Comment on above: Performed By: #### 5 54798799, 3438516, 2428888, 6092940, 09101881, 3532264, 62950147 ####[facility] [address] [place] [address] Family Medicine Office/Clini c Noteon 04-28-2023 Family Medicine Office/Clinic Note HPI Staff Lili is a 27 year old female presenting to establish care Establish Care: History:anxiety,bi polar, depression, anemia, HSV2, sleep disorder Any previous diagnosis: Anemia History of seeing any specialist: When was your last doctors visit: early 2022 [facility] provider[facility] Any recent labs: last year Health Maintenance UTD: Colonoscopy: none Mammogram: had one, FCBD Pelvic/Pap: 2022 [place] flu: refused Acute: lump inside left wrist, [...] Unsure if there is generalized weakness with granite installer strength. Abdomen: Soft, Nontender, Non-distended, + BS Assessment/Plan 1. Bipolar disorder, unspecified (F31.9: Bipolar disorder, unspecified) - Not on meds. - Pt states she is controlled but having anger issues again. - Would like counseling Ordered: CBC w/ Auto Diff Comprehensive Metabolic Panel EMG Bilateral Lower Extremity (BLE) EMG Bilateral Upper Extremity (BUE) Ferritin [facility] Internal Ambulatory Referral Iron Level TSH With T4fr Reflex Vitamin D 25 Hydroxy 2. Depression (F32.A: Depression, unspecified) - As above - Uses THC for this Ordered: CBC w/ Auto Diff Comprehensive Metabolic Panel EMG Bilateral Lower Extremity (BLE) EMG Bilateral Upper Extremity (BUE) Ferritin [facility] [place] Internal Ambulatory Referral Iron Level TSH With T4fr Reflex Vitamin D 25 Hydroxy 3. Anxiety (F41.9: Anxiety disorder, unspecified) - As above Ordered: CBC w/ Auto Diff Comprehensive Metabolic Panel EMG Bilateral Lower Extremity (BLE) EMG Bilateral Upper Extremity (BUE) Ferritin [facility] [place] Internal Ambulatory Referral Iron Level TSH With T4fr Reflex Vitamin D 25 Hydroxy 4. Vitamin D deficiency (E55.9: Vitamin D deficiency, unspecified) - Will check levels today Ordered: CBC w/ Auto Diff Comprehensive Metabolic Panel EMG Bilateral Lower Extremity (BLE) EMG Bilateral Upper Extremity (BUE) Ferritin [facility] [place] [place] Internal Ambulatory Referral Iron Level TSH With T4fr Reflex Vitamin D 25 Hydroxy 5. Numbness and tingling (R20.0: Anesthesia of skin) - Unsure is this is related to the anemia - Being in all 4 extremities, we will do an EMG Ordered: CBC w/ Auto Diff Comprehensive Metabolic Panel EMG Bilateral Lower Extremity (BLE) EMG Bilateral Upper Extremity (BUE) Ferritin [facility] [place] Internal Ambulatory Referral Iron Level TSH With [...] vaping Orde (more content not included)... Normal [facility] Comment on above: Result Comment: Elec tronically Signed By: Isaias SHEEHAN, Nathaniel Everett\.br\Date and Time Signed: 04/28/23 10:10 EST Ferritinon 04-28-2023 Ferritin [Mass/Vol] 12 ng/mL Normal 11-307 [facility] Comment on above: Performed By: #### 5 01951444, 5232421, 7196100, 2573234, 21679359, 8030757, 71180637 ####[facility] [address] [place] [address] Formson 04-28-2023 Forms [id number]#1.00TIFF Normal [facility] Ironon 04-28-2023 Iron [Mass/Vol] 114 microgram/dL Normal 35-153 [facility] Comment on above: Performed By: #### 5 [id number], [id number], [id number], [id number], [id number], [id number], [id number] ####[facility] [id number] [place] [address] Patient Educationon 04-28-19 24 Patient Education Nutrition [...] numbers. This can be done either in [place] or metric measurements. Note that charts and online BMI calculators are available to help you find your BMI quickly and easily without having to do these calculations yourself. To calculate your BMI in [place] measurements: 1. Measure your weight in [...] for Disease Control and Prevention: www.cdc.gov ? [place] Heart Association: www.heart.org ? National Heart, Lung, and Blood [place]: www.nhlbi.nih.gov Summary ? Body mass index (BMI) is a number that is calculated from a person's weight and height. ? BMI may help estimate how much of a person's weight is composed of fat. BMI can help identify those who may be at higher risk for certain medical problems. ? BMI can be measured using [place] measurements or metric measurements. ? BMI charts are used to identify whether you are underweight, normal weight, overweight, or obese. This information is not intended to replace advice given to you by your health care provider. Make sure you discuss any questions you have with your health care provider. Document Revised: 11/02/2019 Document Reviewed: 09/09/2019 [employer] Patient Education ? 2022 [employer] [facility] TSH With T4fr Reflexon 04-27 TSH Qn 1.55 m[IU]/L Normal 0.34-5.60 [facility] Comment on above: Performed By: #### 5 [id number], [id number], [id number], [id number], [id number], [id number] ####[facility] [id number] [place] [address] Vitamin D 25 Hydroxyon 04-27 25-hydroxyvitamin D3 [Mass/Vol] 14.3 ng/mL Low 30.0-100.0 [facility] Comment on above: Performed By: #### 5 [id number], [id number], [id number], [id number], [id number] ####[facility] [id number] [place] [address] eGFRon 04-28-2023 eGFR 124 mL/min/1.73 m2 Normal >=59 [facility] Comment on above: Order Comment: Order added by Discern Expert. Performed By: #### 5 [id number], [id number], [id number] ####[facility] [address] [place] [address] CULTURE URINEon 06-23-2021 CULTURE URINE Isolate 1 Escherichia coli >100,000 cfu/ml of ORGANISM 1 Escherichia coli ANTIBIOTIC M.I.C RX STATUS Ampicillin >=32 R F Ampicillin/Sulbact am >=32 R F Piperacillin/Tazob actam <=4 S F Cefazolin <=4 S F Ceftazidime <=1 S F Ceftriaxone <=1 S F Ertapenem <=0.5 S F Imipenem <=0.25 S F Amikacin <=2 S F Gentamicin <=1 S F Tobramycin <=1 S F Ciprofloxacin <=0.25 S F Levofloxacin <=0.12 S F Nitrofurantoin <=16 S F Trimethoprim/Sulfa methoxazole <=20 S F Normal [facility] Comment on above: Performed By: #### U RCX #### [facility] [address] [place] [address] Dr. Dao Tran ER URINE PROFILEon 2 Bilirubin Ql (U) Negative Normal NEGATIVE [facility] Comment on above: Performed By: #### E RUR PREGU, UMICRO #### [facility] [address] [place] [address] Dr. Dao Tran Clarity (U) CLEAR Normal CLEAR [facility] Comment on above: Performed By: #### E RUR, PREGU, UMICRO #### [facility] [address] [address] [address] Dao Tran Color (U) LT. YELLOW Normal YELLOW [facility] Comment on above: Performed By: #### Rosie RUR PREGU, UMICRO #### [facility] [address] [place] [address] Dr. Dao BISHOP A micrscopic examination will be performed if indicated. Normal [facility] Comment on above: Performed By: #### Rosie RUR PREGU, UMICRO #### [facility] [address] [place] [address] Dr. Dao Tran Glucose Ql (U) Negative Normal NEGATIVE [facility] Comment on above: Performed By: #### Rosie RUR PREGU, UMICRO #### [facility] [address] [place] [address] Dr. Dao Tran Hemoglobin Ql (U) MODERATE Abnormal NEGATIVE [facility] Comment on above: Performed By: #### Rosie RUR PREGU, UMICRO #### [facility] [address] [address] [address] Dao Tran Ketones Ql (U) 40 mg/dl Abnormal NEGATIVE [facility] Comment on above: Performed By: #### Rosie RUR PREGU, UMICRO #### [facility] [address] [place] [address] Dr. Dao Tran LEUKOCYTES LARGE Abnormal NEGATIVE [facility] Comment on above: Performed By: #### E RUR PREGU, UMICRO #### [facility] [address] [place] [address] Dr. Dao Tran Nitrite Ql (U) Negative Normal NEGATIVE [facility] Comment on above: Performed By: #### E RUR, PREGU, UMICRO #### [facility] [address] [place] [address] Dr. Dao Tran pH (U) 7.0 [pH] Normal 5-9 [facility] Comment on above: Performed By: #### E RUR, PREGU, UMICRO #### [facility] [address] [place] [address] Dr. Dao Tran Protein (U) [Mass/Vol] 30 mg/dL Abnormal NEGATIVE/ TRACE [facility] Comment on above: Performed By: #### E RUR PREGU, UMICRO #### [facility] [address] [place] [address] Dr. Dao Tran SPEC GRAVITY 1.010 Normal 1.005-<=1.025 [facility] Comment on above: Performed By: #### E RUR PREGU, UMICRO #### [facility] [address] [place] [address] Dr. Dao Tran UR MICRO IND INDICATED Normal [facility] Comment on above: Performed By: #### E RUR PREGU, UMICRO #### [facility] [address] [place] [address] Dr. Dao Tran Urobilinogen Qn (U) 0.2 {Marianna'U}/dL Normal 0.2 - 1. 0 [facility] Comment on above: Performed By: #### E RUR PREGU, UMICRO #### [facility] [address] [place] [address] Dr. Dao Tran URon 06-21-2021 , QUAL Negative Normal NEGATIVE [facility] Comment on above: Performed By: #### E RUR PREGU, UMICRO #### [facility] [address] [place] [address] Dr. Dao Tran URINE MICROSCOPIC ONLYon BACTERIA TRACE Abnormal NONE SEEN [facility] Comment on above: Performed By: #### E RUR, PREGU, UMICRO #### [facility] [address] [place] [address] Dr. Dao Tran Bacteria identified Cx Nom (U) INDICATED Normal [facility] Comment on above: Performed By: #### EDILSON BERMANU UMICRO #### [facility] [address] [place] [address] Dr. Dao Tran CAST NONE SEEN Normal NONE SEEN [facility] Comment on above: Performed By: #### EDILSON BERMANU UMICRO #### [facility] [address] [place] [address] Dr. Dao Tran Crystals LM Nom (Urine sed) NONE SEEN Normal NONE SEEN [facility] Comment on above: Performed By: #### VITALY BERMAN UMICRO #### [facility] [address] [place] [address] Dr. Dao Tran Epithelial cells LM Ql (Urine sed) RARE Normal NONE SEEN /RARE [facility] Comment on above: Performed By: #### EDILSON BERMANU UMICRO #### [facility] [address] [place] [address] Dr. Dao Tran MUCOUS TRACE Abnormal NONE SEEN [facility] Comment on above: Performed By: #### VITALY BERMAN UMICRO #### [facility] [address] [place] [address] Dr. Dao Tran RBC 5-10 Abnormal 0-2 [facility] Comment on above: Performed By: #### VITALY BERMAN UMICRO #### [facility] [address] [place] [address] Dr. Dao Tran WBC 50-75 Abnormal NONE SEEN [facility] Comment on above: Performed By: #### EDILSON BERMANU UMICRO #### [facility] [address] [place] [address] Dr. Dao Tran Covid-19 PCR ([facility])on SARS-CoV-2 (COVID-19) RNA EDGAR+probe Ql (Unsp spec) Not detected Normal NOT DETECTED [facility] Comment on above: Result Comment: This test is not yet approved or cleared by the [place] FDA. When there are no FDA-approved or cleared tests available, and other criteria are met, FDA can make tests available under an emergency access mechanism called an Emergency Use Authorization (EUA). The EUA for this test is supported by the Triple Drum Operator of Health and Human Service's (HHS's) declaration [...] consistent with SARS-CoV-2. Performed By: #### C [facility] #### [facility] [address] [place] [address] Zora Naidu Vital Signs Date Time Vital Sign Value Performing Clinician Keyla gomez 07-28-2024 09:27-0400 Body weight 103.42 kg Naima Nataprawira DO Work Phone: [facility] 07-28-2024 09:27-0400 Diastolic blood pressure 76 mm[Hg] Naima Nataprawira DO Work Phone: [facility] 07-28-2024 09:27-0400 Systolic blood pressure 112 mm[Hg] Naima Nataprawira DO Work Phone: [facility] 01-28-2024 10:03-0500 Body weight 104.33 kg Naima Nataprawira DO Work Phone: [facility] 01-28-2024 10:03-0500 Diastolic blood pressure 70 mm[Hg] Naima Nataprawira DO Work Phone: [facility] 01-28-2024 10:03-0500 Systolic blood pressure 118 mm[Hg] Naima Nataprawira DO Work Phone: [facility] 12-24-2023 11:46-0400 Heart rate 64 /min Naima Nataprawira [facility] 12-24-2023 11:46-0400 SaO2% (BldA) [Mass fraction] 97 % Naima Nataprawira [facility] 12-24-2023 11:46-0400 Respiratory rate 20 /min Naima Nataprawira [facility] 12-24-2023 11:45-0400 Body temperature 97.52 [degF] Naima Nataprawira [facility] 12-24-2023 11:45-0400 Blood Pressure Location Naima Nataprawira [facility] 12-24-2023 11:45-0400 Diastolic blood pressure 84 mm[Hg] Naima Nataprawira [facility] 12-24-2023 11:45-0400 Mean blood pressure 98 mm[Hg] Naima Nataprawira [facility] 12-24-2023 11:45-0400 Systolic blood pressure 126 mm[Hg] Naima Nataprawira [facility] 12-24-2023 10:52-0400 Heart rate 79 /min Naima Nataprawira [facility] 12-24-2023 10:52-0400 SaO2% (BldA) [Mass fraction] 97 % Naima Nataprawira [facility] 12-24-2023 10:52-0400 Respiratory rate 18 /min Naima Nataprawira [facility] 12-24-2023 10:52-0400 Blood Pressure Location Naima Nataprawira [facility] 12-24-2023 10:52-0400 Diastolic blood pressure 78 mm[Hg] Naima Nataprawira [facility] 12-24-2023 10:52-0400 Mean blood pressure 92 mm[Hg] Naima Nataprawira [facility] 12-24-2023 10:52-0400 Systolic blood pressure 120 mm[Hg] Naima Nataprawira [facility] 12-24-2023 10:43-0400 Body temperature 97.7 [degF] Naima Nataprawira [facility] 12-24-2023 10:43-0400 Diastolic blood pressure 70 mm[Hg] Naima Nataprawira [facility] 12-24-2023 10:43-0400 Heart rate 68 /min Naima Nataprawira [facility] 12-24-2023 10:43-0400 Mean blood pressure 83 mm[Hg] Naima Nataprawira [facility] 12-24-2023 10:43-0400 Respiratory rate 14 /min Naima Nataprawira [facility] 12-24-2023 10:43-0400 SaO2% (BldA) [Mass fraction] 96 % Naima Nataprawira [facility] 12-24-2023 10:43-0400 Systolic blood pressure 108 mm[Hg] Naima Nataprawira [facility] 12-24-2023 10:34-0400 Mean blood pressure 101 mm[Hg] Naima Nataprawira [facility] 12-24-2023 10:34-0400 Respiratory rate 10 /min Naima Nataprawira [facility] 12-24-2023 10:25-0400 Mean blood pressure 90 mm[Hg] Naima Nataprawira [facility] 12-24-2023 10:25-0400 Respiratory rate 18 /min Naima Nataprawira [facility] 12-24-2023 09:58-0400 Blood Pressure Location Naima Nataprawira [facility] 12-24-2023 09:58-0400 Body temperature 97.52 [degF] Naima Nataprawira [facility] 12-24-2023 06:22-0400 Mean blood pressure 97 mm[Hg] Naima Nataprawira [facility] 12-24-2023 06:21-0400 Body temperature 97.7 [degF] Naima Nataprawira [facility] 12-24-2023 06:21-0400 Respiratory rate 18 /min Naima Nataprawira [facility] 12-23-2023 10:20-0400 Diastolic blood pressure 83 mm[Hg] Naima Nataprawira [facility] 12-23-2023 10:20-0400 Heart rate 86 /min Naima Nataprawira [facility] 12-23-2023 10:20-0400 Mean blood pressure 97 mm[Hg] Naima Nataprawira [facility] 12-23-2023 10:20-0400 Systolic blood pressure 126 mm[Hg] Naima Nataprawira [facility] 12-23-2023 10:20-0400 Heart rate 79 /min Naima Nataprawira [facility] 12-23-2023 10:20-0400 SaO2% (BldA) [Mass fraction] 99 % Naima Nataprawira [facility] 12-23-2023 10:20-0400 Respiratory rate 18 /min Naima Nataprawira [facility] 12-23-2023 10:20-0400 Diastolic blood pressure 86 mm[Hg] Naima Nataprawira [facility] 12-23-2023 10:20-0400 Mean blood pressure 99 mm[Hg] Naima Nataprawira [facility] 12-23-2023 10:20-0400 Systolic blood pressure 124 mm[Hg] Naima Nataprawira [facility] 12-01-2023 11:20-0400 Body weight 104.33 kg Naima Nataprawira DO Work Phone: [facility] 12-01-2023 11:20-0400 Diastolic blood pressure 82 mm[Hg] Naima Nataprawira DO Work Phone: [facility] 12-01-2023 11:20-0400 Systolic blood pressure 126 mm[Hg] Naima Nataprawira DO Work Phone: [facility] Encounters Encounter Date Encounter Type Care Provider Facility Start: 12-13-2024 ambulatory Mandy L Lukas Facility: [facility] Start: 11-02-2024 End: 11-02-2024 ambulatory JOANNE PENN Facility:[facility] Start: 10-20-2024 End: 10-20-2024 ambulatory Mandy L Lukas Facility:[facility] Start: 09-19-2024 End: 09-19-2024 ambulatory Mandy L Lukas Facility:[facility] Start: 08-22-2024 End: 08-22-2024 ambulatory Mandy L Lukas Facility:[facility] [place] Start: 07-28-2024 End: 07-28-2024 Patient encounter status Naima Jacquesawira DO Work Phone: [facility] Work Phone: Start: 07-28-2024 End: 07-28-2024 Periodic preventive med est patient 18-39 yrs Naima Bruce DO Work Phone: [facility] Comment on above: Encounter for gyneco logical examination (general) (routine) with abnormal findings (Primary Dx); Stress incontinence; History of robot-assisted laparoscopic hysterectomy; Screening breast examination; Low libido Start: 07-28-2024 End: 07-28-2024 ambulatory NAIMA BRUCE Not Available Start: 01-28-2024 End: 01-28-2024 Postop follow up visit related to original px Naima Bruce DO Work Phone: [facility] Comment on above: Follow-up examinatio n after gynecological surgery (Primary Dx); History of robot-assisted laparoscopic hysterectomy; Status post bilateral salpingectomy; Current every day nicotine vaping Start: 01-28-2024 End: 01-28-2024 ambulatory NAIMA BRUCE Not Available Start: 01-06-2024 End: 01-08-2024 Clinisync Result Encounter Naima Bruce DO Work Phone: [facility] Unsolicited Start: 01-06-2024 End: 01-08-2024 Clinisync Result Encounter Naima Bruce DO Work Phone: [facility] Unsolicited Start: 01-06-2024 End: 01-06-2024 ambulatory Naima Bruce Facility:[facility] Start: 01-06-2024 End: 01-06-2024 Patient encounter procedure Naima Bruce [facility] Start: 12-24-2023 End: 12-24-2023 Clinisync Result Encounter Naima Bruce DO Work Phone: [facility] Unsolicited Start: 12-24-2023 End: 12-24-2023 Clinisync Result Encounter Naima Bruce DO Work Phone: [facility] Unsolicited Start: 12-24-2023 End: 12-24-2023 Admission to same day surgery center Naima Bruce [facility] Start: 12-24-2023 End: 12-24-2023 ambulatory Naima Bruce Facility:[facility] Start: 12-23-2023 End: 12-23-2023 ambulatory Naima Bruce Facility:[facility] Start: 12-23-2023 End: 12-23-2023 Patient encounter procedure Naima Bruce [facility] Start: 12-01-2023 End: 12-01-2023 Admission to same day surgery center Naima Bruce DO Work Phone: [facility] Start: 12-01-2023 End: 12-01-2023 Office outpatient visit 25 minutes Naima Bruce DO Work Phone: [facility] Comment on above: Preoperative exam fo r gynecologic surgery (Primary Dx); Irregular menstrual cycle; Dysmenorrhea; Secondary oligomenorrhea; Pelvic pain in female; Hx of tubal ligation; Vaping nicotine dependence, non-tobacco product Start: 12-01-2023 End: 12-01-2023 ambulatory NAIMA BRUCE Not Available Start: 11-10-2023 End: 11-10-2023 Lab Drop off Nathaniel Esparza [facility] Start: 11-10-2023 End: 11-10-2023 ambulatory MD Nathaniel Esparza Facility:[facility] Start: 11-06-2023 End: 11-06-2023 ambulatory Ana Syed [facility] Start: 11-06-2023 End: 11-06-2023 Patient encounter procedure Ana Guevara Kunal [facility] Start: 10-13-2023 ambulatory Niharika Blackwell Facility :[facility] Start: 10-08-2023 End: 10-08-2023 ambulatory NAIMA BRUCE Not Available Start: 09-17-2023 End: 09-17-2023 ambulatory NAIMA BRUCE Not Available Start: 09-10-2023 End: 09-10-2023 Patient encounter procedure Naima Bruce [facility] Start: 09-10-2023 End: 09-10-2023 ambulatory Naima Bruce Facility:[facility] Start: 09-03-2023 End: 09-03-2023 ambulatory MD Nathaniel Esparza Facility:[facility] Start: 09-03-2023 End: 09-03-2023 Patient encounter procedure Luis Daniel [facility] Start: 08-17-2023 End: 08-17-2023 ambulatory MD Nathaniel Esparza Facility:[facility] Start: 07-30-2023 End: 07-30-2023 ambulatory MD Nathaniel Esparza Facility:[facility] [place] Start: 07-13-2023 End: 07-13-2023 ambulatory Ana Syed Facility:[facility] Start: 07-13-2023 End: 07-13-2023 Patient encounter procedure Ana Syed [facility] Start: 06-19-2023 End: 06-19-2023 ambulatory MD Nathaniel Esparza Facility:[facility] Start: 06-19-2023 End: 06-19-2023 Patient encounter procedure Nathaniel Esparza [facility] Start: 06-02-2023 End: 06-02-2023 ambulatory MD Nathaniel Esparza Facility: [facility] Start: 04-29-2023 End: 06-16-2023 Pre-admission assessment Nathaniel Esparza [facility] Start: 04-28-2023 ambulatory Niharika Blackwell Facility:[facility] Start: 04-28-2023 End: 04-28-2023 ambulatory MD Nathaniel Esparza Facility:[facility] Start: 04-27-2023 [facility] Start: 06-21-2021 End: 06-21-[address] BRIANNA GARDNER Facility: Start: 10-30-2020 End: 10-31-[address] BRIANNA GARDNER Facility:[facility] Start: 08-18-2020 End: 08-18-[address] BRIANNA GARDNER Facility:[facility] Procedures Date Procedure Procedure Detail Performing Clinician Start: 01-06-2024 [facility] C URINE Naima Smith Pauline aprawira DO Work Phone: Start: 12-24-2023 H/O: tubal ligation Brandon Mesa Nataprawira Start: 12-24-2023 URINALYSIS WITH MICRO M sue J Nataprawira DO Work Phone: Start: 12-24-2023 Abdominal hysterectomy Naima Nataprawira Bilateral tubal ligation Jae [facility] Comment on above: 2015 Cholecystectomy Nathaniel Esparza Comment on above: 2011 H/O: hysterectomy History of robot-assisted laparoscopic hysterectomy Naima Smith Nataprawira DO Work Phone: H/O: hysterectomy History of robot-assisted laparoscopic hysterectomy Naima Smith Nataprawira DO Work Phone: H/O: surgery Status post bila teral salpingectomy Naima Smith Nataprawira DO Work Phone: H/O: tubal ligation Hx of tubal ligation Naima Smith Nataprawira DO Work Phone: Plan of Treatment Date Care Activity Detail Author Start: 07-31-2025 End: 07-31-2025 Patient encounter procedure 07/31/2025 2:45 PM EDT Office Visit [facility] [address] [phone] Naima Bruce DO [address] [facility] [address] [address] [facility] Start: 06-27-2024 End: 06-27-2024 Patient encounter procedure 06/27/2024 9:15 AM EDT Office Visit [facility] [address] [address] Naima Bruce, DO [address] [facility] D [address] [phone] [facility] Start: 01-28-2024 End: 01-28-2024 Patient encounter procedure 01/28/2024 10:15 AM EST Office Visit [facility] [address] [phone] Naima Bruce, [address] [facility] D [address] [address] [facility] Start: 12-24-2023 End: 12-24-2023 Patient encounter procedure 12/24/2023 7:30 AM EDT Procedure Visit [facility] Naima Bruce DO [address] [facility] D [address] [address] [facility] Immunizations Immunization Date Immunization Notes Care Provider Fa cili 07-11-1998 measles, mumps and rubella virus vaccine Nathaniel Esparza [facility] 04-26-1996 DTaP, unspecified formulation Nathaniel Esparza [facility] 04-26-1996 hepatitis B vaccine, pediatric or pediatric/adolescent dosage Nathaniel Esparza [facility] 02-22-1996 hepatitis B vaccine, pediatric or pediatric/adolescent dosage Nathaniel Esparza [facility] 02-22-1996 Hib, unspecified formulation Nathaniel Esparza [facility] 02-22-1996 measles, mumps and rubella virus vaccine Nathaniel Esparza [facility] 1993 hepatitis B vaccine, pediatric or pediatric/adolescent dosage Nathaniel Esparza [facility] 1993 Hib, unspecified formulation Nathaniel Esparza [facility] Payers Date Payer Category Payer Medicaid [id number] 2023 Private Health Insurance [id number] 1993 Unknown [id number] 2.16.84 0.1.432363.3.579.2.593 1993 Unknown [id number] 2.16.84 0.1.395466.3.579.2.593 1993 Unknown [id number] 2.16.84 0.1.715349.3.579.2.593 1993 Unknown [id number] 2.16.8 40.1.380535.3.579.2.727 1993 Unknown [id number] 2.16.8 40.1.556945.3.579.2.727 1993 Unknown [id number] 2.16.8 40.1.386980.3.579.2.727 1993 Unknown [id number] 2.16.8 40.1.179073.3.579.2.727 1993 Unknown [id number] 2.16.8 40.1.775737.3.579.2.727 1993 Unknown [id number] 2.16.8 40.1.475262.3.579.2.727 1993 Unknown [id number] 2.16.8 40.1.203088.3.579.2.727 1993 Unknown [id number] 2.16.8 40.1.478886.3.579.2.727 1993 Unknown [id number] 2.16.8 40.1.152333.3.579.2.727 1993 Unknown [id number] 2.16.8 40.1.015274.3.579.2.727 1993 Unknown [id number] 2.16.8 40.1.839318.3.579.2.727 1993 Unknown [id number] 2.16.8 40.1.302827.3.579.2.727 1993 Unknown [id number] 2.16.8 40.1.944326.3.579.2.727 1993 Unknown [id number] 2.16.8 40.1.161686.3.579.2.727 1993 Unknown [id number] 2.16.8 40.1.391196.3.579.2.727 1993 Unknown [id number] 2.16.8 40.1.113632.3.579.2.727 1993 Unknown [id number] 2.16.8 40.1.773908.3.579.2.727 1993 Unknown [id number] 2.16.8 40.1.099582.3.579.2.1259 1993 Unknown [id number] 2.16.84 0.1.708917.3.579.2.1259 1993 Unknown [id number] 2.16.84 0.1.312605.3.579.2.1259 1993 Unknown [id number] 2.16.84 0.1.708421.3.579.2.1259 1993 Unknown [id number] 2.16.84 0.1.579036.3.579.2.1259 1993 Unknown [id number] 2.16.84 0.1.105402.3.579.2.1259 1993 Unknown [id number] 2.16.84 0.1.327760.3.579.2.1259 1993 Unknown [id number] 2.16.8 40.1.249889.3.579.2.727 1993 Unknown [id number] 2.16.8 40.1.629488.3.579.2.727 1993 Unknown [id number] 2.16.8 40.1.885449.3.579.2.727 1993 Unknown [id number] 2.16.8 40.1.600802.3.579.2.727 1993 Unknown [id number] 2.16.8 40.1.143777.3.579.2.727 1959 Unknown [id number] Social History Date Type Detail Facility Start: 06-02-2023 End: 11-10-2023 Tobacco smoking status Light tobacco smoker (finding) [facility] [place] Start: 12-01-2023 End: 07-28-2024 Sex Assigned At Female [facility] Start: 09-17-2023 [facility] tobacco sm[facility] History of tobacco use Cigarette Smoker [facility] Start: 09-17-2023 End: 07-28-2024 Cigarettes smoked current (pack per day) - Reported 0.3 [facility] Start: 09-17-2023 Tobacco use and exposure Smokeless tobacco non-user [facility] Start: 12-01-2023 End: 07-28-2024 Alcoholic beverage intake Ex-drinker (finding) [facility] Start: 1995 Sex assigned at Not on file [facility] Functional Status Date Assessment Result Facility 10-30-2024 Functional Status No [facility] Clinical Notes 12-01-2023 to 11-02-2024 Naima Bruce, DO - 07/28/2024 9:30 AM TACOSNicole Bruce, DO - 01/28/2024 10:15 AM Robbie Bruce, DO - 12/01/2023 11:30 AM EDT Note Date & Type Note Facility 11-02-2024 Note Patient Education Gastroenterology Nonspecific Chest Pain Chest pain can be caused by many different conditions. Some causes of chest pain can be life-threatening. These will require treatment right away. Serious causes of chest pain include: ??? Heart attack. ??? A tear in the body's main blood vessel. ??? Redness and swelling (inflammation) around your heart. ??? Blood clot in your lungs. Other causes of chest pain may not be so serious. These include: ??? Heartburn. ??? Anxiety or stress. ??? Damage to bones or muscles in your chest. ??? Lung infections. Chest pain can feel like: ??? Pain or discomfort in your chest. ??? Crushing, pressure, aching, or squeezing pain. ??? Burning or tingling. ??? Dull or sharp pain that is worse when you move, cough, or take a deep breath. ??? Pain or discomfort that is also felt in your back, neck, jaw, shoulder, or arm, or pain that spreads to any of these areas. It is hard to know whether your pain is caused by something that is serious or something that is not so serious. So it is important to see your doctor right away if you have chest pain. Follow these instructions at home: Medicines ??? Take hlxk-nfc-fjvokmg and prescription medicines only as told by your doctor. ??? If you were prescribed an antibiotic medicine, take it as told by your doctor. Do not stop taking the antibiotic even if you start to feel better. Lifestyle ??? Rest as told by your doctor. ??? Do not use any products that contain nicotine or tobacco, such as cigarettes, e-cigarettes, and chewing tobacco. If you need help quitting, ask your doctor. ??? Do not drink alcohol. ??? Make lifestyle changes as told by your doctor. These may include: ? Getting regular exercise. Ask your doctor what activities are safe for you. ? Eating a heart-healthy diet. A diet and dairy nutrition specialist (dietitian) can help you to learn healthy eating options. ? Staying at a healthy weight. ? Treating diabetes or high blood pressure, if needed. ? Lowering your stress. Activities such as yoga and relaxation techniques can help. General instructions ??? Pay attention to any changes in your symptoms. Tell your doctor about them or any new symptoms. ??? Avoid any activities that cause chest pain. ??? Keep all follow-up visits as told by your doctor. This is important. You may need more testing if your chest pain does not go away. Contact a doctor if: ??? Your chest pain does not go away. ??? You feel depressed. ??? You have a fever. Get help right away if: ??? Your chest pain is worse. ??? You have a cough that gets worse, or you cough up blood. ??? You have very bad (severe) pain in your belly (abdomen). ??? You pass out (faint). ??? You have either of these for no clear reason: ? Sudden chest discomfort. ? Sudden discomfort in your arms, back, neck, or jaw. ??? You have shortness of breath at any time. ??? You suddenly start to sweat, or your skin gets clammy. ??? You feel sick to your stomach (nauseous). ??? You throw up (vomit). ??? You suddenly feel lightheaded or dizzy. ??? You feel very weak or tired. ??? Your heart starts to beat fast, or it feels like it is skipping beats. These symptoms may be an emergency. Do not wait to see if the symptoms will go away. Get medical help right away. Call your local emergency services (911 in the [place] Do not drive yourself to the hospital. Summary ??? Chest pain can be caused by many different conditions. The cause may be serious and need treatment right away. If you have chest pain, see your doctor right away. ??? Follow your doctor's instructions for taking medicines and making lifestyle changes. ??? Keep all follow-up visits as told by your doctor. This includes visits for any further testing if your chest pain does not go away. ??? Be sure to know the signs that show that your condition has become worse. Get help right away if you have these symptoms. This information is not intended to replace advice given to you by your health care provider. Make sure you discuss any questions you have with your health care provider. Document Revised: 12/25/2022 Document Reviewed: 12/25/2022 [employer] Patient Education ? 2023 [employer]. [facility] 07-28-2024 History of Present illness Narrative Images from the original note were not included. Naima Bruce DO Obstetrics and Gynecology Name: Lili Bonds Date/Time of Service:07/28/2024 9:59 AM :1995 Age: 29 y.o. Subjective Lili Bonds is a 29 y.o. female who is here for a routine exam. Annual Exam (Patient here for Yearly. Patient repots low libido and leaks urine when laughs, coughs or sneezing, wear a panty liner occasionally.) Control Contraception: status post hysterectomy. LMP: Patient's last menstrual period was 11/02/2023. Last Mammogram No results found for this or any previous visit. Current Outpatient Medications on File Prior to Visit Medication Sig Dispense Refill cholecalciferol (Vitamin D-3) 25 MCG (1000 UT) tablet Refills(s) 0 No current facility-administered medications on file prior to visit. 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 Ovarian cyst 2008 Urinary tract infection Past Surgical History: Procedure Laterality Date ABDOMINAL SURGERY 2009 , 2016 CHOLECYSTECTOMY CONDYLOMA EXCISION/FULGURATION 2019 ROBOTIC ASSISTED HYSTERECTOMY 12/24/2023 with bilateral salpingectomy TUBAL LIGATION 2017 VAGINAL DELIVERY WISDOM TOOTH EXTRACTION Family History Problem Relation Name Age of Onset Other (bladder cancer) Mother Montserrat Cancer Mother Mont[place]errat Hypertension Mother [place]at Diabetes Father Miguel Hypertension Father Miguel Diabetes Maternal Grandfather Gera Cancer Maternal Grandmother Bertha Diabetes Maternal Grandmother Bertha Diabetes Paternal Grandfather Calvin Diabetes Paternal Grandmother Jaye Asthma Brother Mayur Cancer Sister Billie Thyroid disease Sister Billie Social History Tobacco Use Smoking status: Some Days Current packs/day: 0.25 Average packs/day: 0.3 packs/day for 15.0 years (3.8 ttl pk-yrs) Types: Cigarettes Smokeless tobacco: Never Vaping Use Vaping status: Every Day Substances: Nicotine, THC Substance Use Topics Alcohol use: Not Currently Drug use: Never OB History Para Term AB Living 6 4 4 1 4 SAB IAB Ectopic Multiple Live Births 4 # Outcome Date GA Lbr Daniel/2nd Weight Sex Type Anes PTL Lv 6 Term 2016 F Vag-Spont N RAMÓN 5 Term 2014 F Vag-Spont RAMÓN 4 Term 2012 F Vag-Spont RAMÓN 3 Term 2010 F Vag-Spont RAMÓN 2 1 AB SAB Allergies Allergen Reactions Morphine Hives hives Review of Systems Constitutional: Negative. Respiratory: Negative. Cardiovascular: Negative. Gastrointestinal: Negative. Musculoskeletal: Negative. Skin: Negative. Neurological: Negative. Endocrine: Negative. Objective BP 112/76 Wt 228 lb LMP 11/02/2023 There is no height or weight on file to calculate BMI. Physical Exam Genitourinary: Urethral meatus normal. No lesions in the vagina. Right Labia: No lesions. Left Labia: No lesions. No vaginal discharge. Right Adnexa: not tender and no mass present. Left Adnexa: not tender and no mass present. Cervix is absent. Uterus is absent. Urethral hypermobility present. No urethral stress urinary incontinence with cough stress test present. Bladder is not tender. Breasts: Right: No mass, nipple discharge, skin change or tenderness. Left: No mass, nipple discharge, skin change or tenderness. HENT: Head: Normocephalic and atraumatic. Mouth/Throat: Mouth: Mucous membranes are moist. Cardiovascular: Rate and Rhythm: Normal rate and regular rhythm. Pulmonary: Effort: Pulmonary effort is normal. Breath sounds: Normal breath sounds. Abdominal: General: Bowel sounds are normal. Palpations: Abdomen is soft. Musculoskeletal: General: No tenderness. Cervical back: Neck supple. Neurological: Mental Status: She is alert and oriented to person, place, and time. Skin: General: Skin is warm and dry. Psychiatric: Mood and Affect: Mood normal. Vitals and nursing note reviewed. Assessment/Plan 1. Encounter for gynecological examination (general) (routine) with abnormal findings (Primary) Breast and pelvic exam performed. Discussed findings. Patient to contact the office with any changes to her gynecological condition. 2. Stress incontinence Discussed weight loss and core/pelvic floor strengthening. Patient voiced understanding 3. History of robot-assisted laparoscopic hysterectomy 4. Screening breast examination 5. Low libido Reassured patient ICD-10-CM 1. Encounter for gynecological examination (general) (routine) with abnormal findings Z01.411 2. Stress incontinence N39.3 3. History of robot-assisted laparoscopic hysterectomy Z90.710 4. Screening breast examination Z12.39 5. Low libido R68.82 Follow up in about 1 year (around 07/28/2025) for Yearly. Naima Bruce DO 07/28/2024 9:59 AM documented in this encounter [facility] 01-28-2024 History of Present illness Narrative Images from the original note were not included. Jos Bonds is a 28 y.o. female HPI Chief Complaint Patient presents with Post-op Visit Patient is here for 5 week post op she had Robot Assisted Total Laparoscopic Hysterectomy with Bilateral Salpingectomy on 12/24/23 at [facility] [place] due to heavy and painful periods. Patient states that she is healing well and denies any bladder or bowel problems. Does not need RTW note. 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 Ovarian cyst 2008 Urinary tract infection Past Surgical History: Procedure Laterality Date ABDOMINAL SURGERY 2009 , 2016 CHOLECYSTECTOMY CONDYLOMA EXCISION/FULGURATION 2019 ROBOTIC ASSISTED HYSTERECTOMY 12/24/2023 with bilateral salpingectomy TUBAL LIGATION 2017 VAGINAL DELIVERY WISDOM TOOTH EXTRACTION Family History Problem Relation Name Age of Onset Other (bladder cancer) Mother Montserrat Cancer Mother Mont[place]errat Hypertension Mother [place]at Diabetes Father Miguel Hypertension Father Miguel Diabetes Maternal Grandfather Gera Cancer Maternal Grandmother Bertha Diabetes Maternal Grandmother Betrha Diabetes Paternal Grandfather Calvin Diabetes Paternal Grandmother Jaye Asthma Brother Mayur Cancer Sister Billie Thyroid disease Sister Billie Social History Tobacco Use Smoking status: Some Days Current packs/day: 0.25 Average packs/day: 0.3 packs/day for 15.0 years (3.8 ttl pk-yrs) Types: Cigarettes Smokeless tobacco: Never Vaping Use Vaping status: Every Day Substances: Nicotine, THC Substance Use Topics Alcohol use: Not Currently Drug use: Never OB History Para Term AB Living 6 4 4 1 4 SAB IAB Ectopic Multiple Live Births 4 # Outcome Date GA Lbr Daniel/2nd Weight Sex Type Anes PTL Lv 6 Term 2017 F Vag-Spont N RAMÓN 5 Term 2014 F Vag-Spont RAMÓN 4 Term 2012 F Vag-Spont RAMÓN 3 Term 2010 F Vag-Spont RAMÓN 2 1 AB SAB Allergies Allergen Reactions Morphine Hives hives Current Outpatient Medications on File Prior to Visit Medication Sig Dispense Refill cholecalciferol (Vitamin D-3) 25 MCG (1000 UT) tablet Refills(s) 0 No current facility-administered medications on file prior to visit. Review of Systems Constitutional: Negative for chills and fever. Respiratory: Negative for shortness of breath. Cardiovascular: Negative for chest pain. Gastrointestinal: Negative for nausea and vomiting. Genitourinary: Negative for dysuria, pelvic pain and vaginal discharge. Neurological: Negative for dizziness and headaches. Objective BP 118/70 Wt 230 lb Physical Exam Constitutional: Appearance: Normal appearance. Genitourinary: No lesions in the vagina. Right Labia: No lesions. Left Labia: No lesions. Vaginal cuff intact. Vaginal bleeding (scant pink blood noted) present. No vaginal discharge. Right Adnexa: not tender and no mass present. Left Adnexa: not tender and no mass present. Cervix is absent. Uterus is absent. Cardiovascular: Rate and Rhythm: Normal rate and regular rhythm. Pulmonary: Breath sounds: Normal breath sounds. Abdominal: General: Bowel sounds are normal. Palpations: Abdomen is soft. Tenderness: There is no abdominal tenderness. Neurological: Mental Status: She is alert. Skin: General: Skin is warm and dry. Comments: Laparoscopic skin incisions well healed without erythema Psychiatric: Mood and Affect: Mood normal. Assessment/Plan 1. Follow-up examination after gynecological surgery (Primary) Doing well. Reviewed and discussed benign pathology results and intraoperative images 2. History of robot-assisted laparoscopic hysterectomy 3. Status post bilateral salpingectomy 4. Current every day nicotine vaping documented in this encounter [facility] 01-06-2024 Evaluation + Plan note Diagnostic Tests PendingUrine Culture 01/06/24 [facility] 12-25-2023 Note Progress Note-Physic camilo Patient: LILI BONDS Age: 28 years Sex: Female : 1995 Associated Diagnoses: None Author: MD Enriquez Ahmad F Postoperative Information Postoperative disposition: Postoperative disposition: To PACU. Optimetrix number: Optimetrix number [id number]. Anesthetic utilized: General. Health Status Allergies: Allergic Reactions (Selected) Severity Not Documented Morphine- Hives. Shellfish- Anaphylaxis. Physical Examination VS/Measurements Pain Assessment: Controlled. General: Awake, Alert, Appropriate. Respiratory: Adequate air exchange. Cardiovascular: Stable, Normal peripheral perfusion. Neurological: Normal sensory function, Normal motor function. Assessment Anesthetic outcome No anesthetic complications noted. Adequate pain relief. able to void without difficulty, able to ambulate with assist, tolerating PO intake, no N/V. Review / Management Condition: Stable. Plan Transfer/Discharge: Transfer/Discharge Discharge when meets criteria ( To home ). [facility] Comment on above: Result Comment: Elec tronically Signed By: MD Enriquez Ahmad F\.br\Date and Time Signed: 12/25/23 17:52 EDT 12-25-2023 Note Progress Note-Physic camilo Patient: LILI BONDS Age: 28 years Sex: Female : 1995 Associated Diagnoses: None Author: MD Enriquez Ahmad F Preoperative Information Time patient last ate or drank:=== (npo 8 hours) Anesthesia history: Patient history: No prior anesthesia problems. Re-evaluation prior to induction: Completed, Initial evaluation reviewed. Review of Systems Respiratory: No shortness of breath. Cardiovascular: No chest pain. Hematology/Lymphatics: No bruising tendency, No bleeding tendency. Health Status Allergies: Allergic Reactions (All) Severity Not Documented Morphine- Hives. Shellfish- Anaphylaxis. Current medications: (Selected) Prescriptions Prescribed Colace 100 mg Cap: 100 mg = 1 cap(s), Oral, Bedtime, # 30 cap(s), Refills(s) 1, [id number], cm, 12/23/23 11:36:00 EDT, Height/Length Dosing, 103.8, kg, 12/23/23 11:36:00 EDT, Weight Dosing acetaminophen 500 mg Tab: 1,000 mg = 2 tab(s), Oral, q6hr, # 120 tab(s), Refills(s) 0, [id number], 171, cm, 12/23/23 11:36:00 EDT, Height/Length Dosing, 103.8, kg, 12/23/23 11:36:00 EDT, Weight Dosing ibuprofen 600 mg Tab: 600 mg = 1 tab(s), Oral, q6hr, # 60 tab(s), Refills(s) 1, [id number] 171, cm, 12/23/23 11:36:00 EDT, Height/Length Dosing, 103.8, kg, 12/23/23 11:36:00 EDT, Weight Dosing Documented Medications Documented Vitamin B12: Oral, Daily, Refills(s) 0, Prophylaxis Vitamin D: Oral, Daily, Refills(s) 0, Prophylaxis Problem list: All Problems Anemia / SNOMED CT 447374009 / Confirmed Anxiety / SNOMED CT 67753192 / Confirmed Bipolar disorder, unspecified / SNOMED CT 89615350 / Confirmed Sleep disorder / SNOMED CT 64801774 / Confirmed Herpes simplex type 2 infection / SNOMED CT 3501879829 / Confirmed Tetrahydrocannabinol (THC) use disorder, mild, abuse / SNOMED CT 047470398 / Confirmed Ganglion cyst / SNOMED CT 4862010454 / Confirmed Vitamin D deficiency / SNOMED CT 47861131 / Confirmed Family hx of alcoholism / SNOMED CT 496202989 / Confirmed Numbness and tingling / SNOMED CT 4528359127 / Confirmed Calcium deficiency / SNOMED CT 385791603 / Confirmed PCOS (polycystic ovarian syndrome) / SNOMED CT 510398848 / Confirmed Canceled: Depression / SNOMED CT 69196622 Histories Past Medical History: No active or resolved past medical history items have been selected or recorded. Family History: Primary malignant neoplasm of colon Grandparent Anxiety Mother Primary malignant neoplasm of bladder Mother Hypertension Father Mother Diabetes mellitus type 2 Father Alcoholism Father Acute myocardial infarction Father Depression Mother Procedure history: Abdominal hysterectomy ([id number]) on 12/24/2023 at 28 Years. Bilateral tubal ligation ([id number]). Comments: 04/28/2023 9:17 Jacquelyn aShu LPN 2015 Cholecystectomy ([id number]). Comments: 04/28/2023 9:17 Jacquelyn Sahu LPN 2011 Social History Social & Psychosocial Habits Substance Abuse 12/24/2023 Risk Assessment: Medium Risk 12/24/2023 Use: Current Type: Marijuana Frequency: Daily Tobacco 12/24/2023 Tobacco Use: 4 or less cigarettes(less Smokeless tobacco use: Current vaping or e-cigar Type: Vaping Smoking Cessation Yes . Physical Examination Please see preop flow sheet Airway: Mallampati classification: II (soft palate, fauces, uvula visible). Respiratory: Lungs are clear to auscultation. Cardiovascular: Normal rate, Regular rhythm. Neurologic: Alert. Review / Management Results review Interpretation of Outside Results Chest x-ray results Radiology results ECG interpretation Condition Plan [place] [employer]esthesi[employer] (ASA) physical status classification: Class II. Anesthetic Preoperative Plan Anesthesia: General. . Anesthetic plan, risks, benefits, and alternatives discussed with the patient and/or family. Risks discussed: nausea, vomiting, headache, sore throat, dental injury, serious complications. Patient verbalized understanding. Communication: face to face with patient 5 minutes. [facility] Comment on above: Result Comment: Elec tronically Signed By: MD Zoe, Kassandra Fajardo\.br\Date and Time Signed: 12/25/23 17:51 EDT 12-24-2023 Hospital Discharge instructions Patient Education 12/24/2023 11:40:49 Post Op Patient Instructions - FT (CUSTOM) 12/24/2023 10:04:58 Total Laparoscopic Hysterectomy, Care After Total Laparoscopic Hysterectomy, Care After The following information offers guidance on how to care for yourself after your procedure. Your health care provider may also give you more specific instructions. If you have problems or questions, contact your health care provider. What can I expect after the procedure? After the procedure, it is common to have: Pain, bruising, and numbness around your incisions. Tiredness (fatigue). Poor appetite. Less interest in sex. Vaginal discharge or bleeding. You will need to use a sanitary pad after this procedure. Feelings of sadness or other emotions. If your ovaries were also removed, it is also common to have symptoms of menopause, such as hot flashes, night sweats, and lack of sleep (insomnia). Follow these instructions at home: Medicines Take nfjg-hqx-gkuwyff and prescription medicines only as told by your health care provider. Ask your health care provider if the medicine prescribed to you: ?Requires you to avoid driving or using machinery. ?Can cause constipation. You may need to take these actions to prevent or treat constipation: ?Drink enough fluid to keep your urine pale yellow. ?Take eibt-tus-pfpjfnc or prescription medicines. ?Eat foods that are high in fiber, such as beans, whole grains, and fresh fruits and vegetables. ?Limit foods that are high in fat and processed sugars, such as fried or sweet foods. Incision care Follow instructions from your health care provider about how to take care of your incisions. Make sure you: ?Wash your hands with soap and water for at least 20 seconds before and after you change your bandage (dressing). If soap and water are not available, use hand lab support tech. ?Change your dressing as told by your health care provider. ?Leave stitches (sutures), skin glue, or adhesive strips in place. These skin closures may need to stay in place for 2 weeks or longer. If adhesive strip edges start to loosen and curl up, you may trim the loose edges. Do not remove adhesive strips completely unless your health care provider tells you to do that. Check your incision areas every day for signs of infection. Check for: ?More redness, swelling, or pain. ?Fluid or blood. ?Warmth. ?Pus or a bad smell. Activity Rest as told by your health care provider. Avoid sitting for a long time without moving. Get up to take short walks every 1 2 hours. This is important to improve blood flow and breathing. Ask for help if you feel weak or unsteady. Return to your normal activities as told by your health care provider. Ask your health care provider what activities are safe for you. Do not lift anything that is heavier than 10 lb (4.5 kg), or the limit that you are told, for one month after surgery or until your health care provider says that it is safe. If you were given a sedative during the procedure, it can affect you for several hours. Do not drive or operate machinery until your health care provider says that it is safe. Lifestyle Do not use any products that contain nicotine or tobacco. These products include cigarettes, chewing tobacco, and vaping devices, such as e-cigarettes. These can delay healing after surgery. If you need help quitting, ask your health care provider. Do not drink alcohol until your health care provider approves. General instructions Do not douche, use tampons, or have sex for at least 6 weeks, or as told by your health care provider. If you struggle with physical or emotional changes after your procedure, speak with your health care provider or a therapist. Do not take baths, swim, or use a hot tub until your health care provider approves. You may only be allowed to take showers for 2 3 weeks. Keep your dressing dry until your health care provider says it can be removed. Try to have someone at home with you for the first 1 2 weeks to help with your daily chores. Wear compression stockings as told by your health care provider. These stockings help to prevent blood clots and reduce swelling in your legs. Keep all follow-up visits. This is important. Contact a health care provider if: You have any of these signs of infection: ?Chills or a fever. ?More redness, swelling, or pain around an incision. ?Fluid or blood coming from an incision. ?Warmth coming from an incision. ?Pus or a bad smell coming from an incision. An incision opens. You feel dizzy or light-headed. You have pain or bleeding when you urinate, or you are unable to urinate. You have abnormal vaginal discharge. You have pain that does not get better with medicine. Get help right away if: You have a fever and your symptoms suddenly get worse. You have severe abdominal pain. You have chest pain or shortness of breath. You faint. You have pain, swelling, or redness in your leg. You have heavy vaginal bleeding with blood clots, soaking through a sanitary pad in less than 1 hour. These symptoms may represent a serious problem that is an emergency. Do not wait to see if the symptoms will go away. Get medical help right away. Call your local emergency services (911 in the [place] Do not drive yourself to the hospital. Summary After the procedure, it is common to have pain and bruising around your incisions. Do not take baths, swim, or use a hot tub until your health care provider approves. Do not lift anything that is heavier than 10 lb (4.5 kg), or the limit that you are told, for one month after surgery or until your health care provider says that it is safe. Tell your health care provider if you have any signs or symptoms of infection after the procedure. Get help right away if you have severe abdominal pain, chest pain, shortness of breath, or heavy bleeding from your vagina. This information is not intended to replace advice given to you by your health care provider. Make sure you discuss any questions you have with your health care provider. Document Revised: 10/11/2020 Document Reviewed: 10/12/2020 [employer] Patient Education 2023 [employer]. Follow Up Care 11/26/2023 14:58:38 With:Naima Bruce Address: [address] [place] [address] [place] [phone] Business (1) When: Unknown [facility] 12-24-2023 Note Patient Education - Text Surgery Total Laparoscopic Hysterectomy, Care After The following information offers guidance on how to care for yourself after your procedure. Your health care provider may also give you more specific instructions. If you have problems or questions, contact your health care provider. What can I expect after the procedure? After the procedure, it is common to have: ??? Pain, bruising, and numbness around your incisions. ??? Tiredness (fatigue). ??? Poor appetite. ??? Less interest in sex. ??? Vaginal discharge or bleeding. You will need to use a sanitary pad after this procedure. ??? Feelings of sadness or other emotions. If your ovaries were also removed, it is also common to have symptoms of menopause, such as hot flashes, night sweats, and lack of sleep (insomnia). Follow these instructions at home: Medicines ??? Take cwxa-bud-zsqbefg and prescription medicines only as told by your health care provider. ??? Ask your health care provider if the medicine prescribed to you: ? Requires you to avoid driving or using machinery. ? Can cause constipation. You may need to take these actions to prevent or treat constipation: ? Drink enough fluid to keep your urine pale yellow. ? Take idiq-irr-lodrwur or prescription medicines. ? Eat foods that are high in fiber, such as beans, whole grains, and fresh fruits and vegetables. ? Limit foods that are high in fat and processed sugars, such as fried or sweet foods. Incision care ??? Follow instructions from your health care provider about how to take care of your incisions. Make sure you: ? Wash your hands with soap and water for at least 20 seconds before and after you change your bandage (dressing). If soap and water are not available, use hand lab support tech. ? Change your dressing as told by your health care provider. ? Leave stitches (sutures), skin glue, or adhesive strips in place. These skin closures may need to stay in place for 2 weeks or longer. If adhesive strip edges start to loosen and curl up, you may trim the loose edges. Do not remove adhesive strips completely unless your health care provider tells you to do that. ??? Check your incision areas every day for signs of infection. Check for: ? More redness, swelling, or pain. ? Fluid or blood. ? Warmth. ? Pus or a bad smell. Activity ??? Rest as told by your health care provider. ??? Avoid sitting for a long time without moving. Get up to take short walks every 1?2 hours. This is important to improve blood flow and breathing. Ask for help if you feel weak or unsteady. ??? Return to your normal activities as told by your health care provider. Ask your health care provider what activities are safe for you. ??? Do not lift anything that is heavier than 10 lb (4.5 kg), or the limit that you are told, for one month after surgery or until your health care provider says that it is safe. ??? If you were given a sedative during the procedure, it can affect you for several hours. Do not drive or operate machinery until your health care provider says that it is safe. Lifestyle ??? Do not use any products that contain nicotine or tobacco. These products include cigarettes, chewing tobacco, and vaping devices, such as e-cigarettes. These can delay healing after surgery. If you need help quitting, ask your health care provider. ??? Do not drink alcohol until your health care provider approves. General instructions ??? Do not douche, use tampons, or have sex for at least 6 weeks, or as told by your health care provider. ??? If you struggle with physical or emotional changes after your procedure, speak with your health care provider or a therapist. ??? Do not take baths, swim, or use a hot tub until your health care provider approves. You may only be allowed to take showers for 2?3 weeks. ??? Keep your dressing dry until your health care provider says it can be removed. ??? Try to have someone at home with you for the first 1?2 weeks to help with your daily chores. ??? Wear compression stockings as told by your health care provider. These stockings help to prevent blood clots and reduce swelling in your legs. ??? Keep all follow-up visits. This is important. Contact a health care provider if: ??? You have any of these signs of infection: ? Chills or a fever. ? More redness, swelling, or pain around an incision. ? Fluid or blood coming from an incision. ? Warmth coming from an incision. ? Pus or a bad smell coming from an incision. ??? An incision opens. ??? You feel dizzy or light-headed. ??? You have pain or bleeding when you urinate, or you are unable to urinate. ??? You have abnormal vaginal discharge. ??? You have pain that does not get better with medicine. Get help right away if: ??? You (more content not included)... [facility] 12-01-2023 History of Present illness Narrative Images from the original note were not included. Subjective Lili Bonds is a 28 y.o. female HPI Chief Complaint Patient presents with Pre-op Visit Patient here for pre-op visit. Patient reports of worsening moderate to severe cramping with her cycles which associated with irregular cycles. Patient has history of bilateral tubal ligation for contraception. Treatment/management options discussed. Patient voiced interest in proceeding with definitive surgical management with hysterectomy. LMP 11/02/23 Pelvic ultrasound revealed anteverted uterus measuring [id number] with normal contour and has rather inhomogeneous myometrial echotexture. Myometrium has a mottled, heterogeneous echotexture, poorly marginated hyperechogenic and hypoechogenic areas. Endometrium normal in contour and thickness of 15.4mm with no overt submucosal fibroids or polyps. Right ovary measuring [id number] with no cysts identified. Left ovary measuring [id number] with thin-walled, sonolucent cyst measuring [id number] identified. Both ovaries contains multiples tiny sonolucent cysts, mainly located along the periphery. No free fluid in the pelvis and good blood profusion noted to both ovaries Weakly proliferative endometrium with stromal breakdown with no evidence of endometrial hyperplasia or malignancy on endometrial biopsy. 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 Ovarian cyst 2007 Urinary tract infection Past Surgical History: Procedure Laterality Date ABDOMINAL SURGERY 2009 , 2016 CHOLECYSTECTOMY CONDYLOMA EXCISION/FULGURATION 2019 TUBAL LIGATION 2017 VAGINAL DELIVERY WISDOM TOOTH EXTRACTION Family History Problem Relation Name Age of Onset Other (bladder cancer) Mother Montserrat Cancer Mother Montserrat Hypertension Mother Montserrat Diabetes Father Miguel Hypertension Father Miguel Diabetes Maternal Grandfather Gera Cancer Maternal Grandmother Bertha Diabetes Maternal Grandmother Bertha Diabetes Paternal Grandfather Calvin Diabetes Paternal Grandmother Jaye Asthma Brother Mayur Cancer Sister Billie Thyroid disease Sister Billie Social History Tobacco Use Smoking status: Some Days Current packs/day: 0.25 Average packs/day: 0.3 packs/day for 15.0 years (3.8 ttl pk-yrs) Types: Cigarettes Smokeless tobacco: Never Vaping Use Vaping status: Every Day Substances: Nicotine, THC Substance Use Topics Alcohol use: Not Currently Drug use: Never OB History Para Term AB Living 6 4 SAB IAB Ectopic Multiple Live Births # Outcome Date GA Lbr Daniel/2nd Weight Sex Type Anes PTL Lv 6 5 4 Para 3 Para 2 Para 1 Para Allergies Allergen Reactions Morphine Hives hives Current Outpatient Medications on File Prior to Visit Medication Sig Dispense Refill cholecalciferol (Vitamin D-3) 25 MCG (1000 UT) tablet Refills(s) 0 No current facility-administered medications on file prior to visit. Review of Systems Constitutional: Negative for chills and fever. Respiratory: Negative for shortness of breath. Cardiovascular: Negative for chest pain. Gastrointestinal: Negative for nausea and vomiting. Genitourinary: Negative for dysuria, pelvic pain and vaginal discharge. Neurological: Negative for dizziness and headaches. Objective BP 126/82 Wt 230 lb LMP 11/02/2023 Physical Exam Constitutional: Appearance: Normal appearance. She is well-developed. HENT: Head: Normocephalic and atraumatic. Cardiovascular: Rate and Rhythm: Normal rate and regular rhythm. Pulmonary: Effort: Pulmonary effort is normal. Breath sounds: Normal breath sounds. Musculoskeletal: Right lower leg: No edema. Left lower leg: No edema. Neurological: General: No focal deficit present. Mental Status: She is alert and oriented to person, place, and time. Skin: General: Skin is warm and dry. Psychiatric: Mood and Affect: Mood and affect normal. Assessment/Plan 1. Preoperative exam for gynecologic surgery Robot Assisted Total Laparoscopic Hysterectomy with bilateral Salpingectomy procedure discussed. Risks of but not limited to pain, bleeding, infections, and injury to surrounding structures (bladder, bowel, ureter, vagina, etc.) discussed. Patient voiced understanding and informed consent signed 2. Irregular menstrual cycle 3. Secondary oligomenorrhea 4. Dysmenorrhea 5. Pelvic pain in female 6. Hx of tubal ligation 7. Vaping nicotine dependence, non-tobacco product documented in this encounter [facility] Healthcare Evaluation + Plan note Future Appointments Appointment Date:06/19/2023 09:30:00 AM Scheduled Provider: [facility] Type:EMG Bilateral Upper Extremity Appointment Date:07/08/2023 10:00:00 AM Scheduled Provider:Niharika Choudhury Location:[facility] Behavioral Health [facility] Appointment Type:BH Therapy New Patient Appointment Date:07/30/2023 09:30:00 AM Scheduled Provider:Nathaniel Esparza MD Location:[facility] Appointment Type:[facility] Evaluation + Plan note Future Appointments Appointment Date:07/08/2023 10:00:00 AM Scheduled Provider:Niharika Choudhury Location:[facility] Appointment Type: Therapy New Patient Appointment Date:07/30/2023 09:30:00 AM Scheduled Provider:Nathaniel Esparza MD Location:[facility] Appointment Type:[facility] Evaluation + Plan note Future Appointments Appointment Date:07/30/2023 09:30:00 AM Scheduled Provider:Nathaniel Esparza MD Location:[facility] Appointment Type:[facility] Behavioral Health Evaluation + Plan note Future Appointments Appointment Date:10/13/2023 10:00:00 AM Scheduled Provider:Niharika Choudhury Location:[facility] Appointment Type: Intake Appointment Date:11/10/2023 10:15:00 AM Scheduled Provider:Nathaniel Esparza MD Location:[facility] Appointment Type:[facility] Evaluation + Plan note Future Appointments Appointment Date:10/13/2023 10:00:00 AM Scheduled Provider:Niharika Choudhury Location:[facility] Appointment Type: Intake Appointment Date:11/10/2023 10:15:00 AM Scheduled Provider:Nathaniel Esparza MD Location:[facility] Appointment Type: Open Diagnostic Tests PendingFSH Level 09/10/23Testosterone F&T 09/10/23DHEAS 09/10/23 [facility] Evaluation + Plan note Future Appointments Appointment Date:12/24/2023 07:30:00 AM Scheduled Provider: Location:[facility] Surgical Services Appointment Type:[facility]gery [facility] Evaluation + Plan note Future Appointments Appointment Date:11/10/2023 10:15:00 AM Scheduled Provider:Nathaniel Esparza MD Location:[facility] Appointment Type:[facility] Behavioral Health Evaluation note Diagnosis Preoperative exam for gynecologic surgery- Primary Irregular menstrual cycle Dysmenorrhea Secondary oligomenorrhea Scanty or infrequent menstruation Pelvic pain in female Unspecified symptom associated with female genital organs Hx of tubal ligation Vaping nicotine dependence, non-tobacco product documented in this encounter [facility] HealthcareEvaluation note* Diagnosis Follow-up examination after gynecological surgery- Primary History of robot-assisted laparoscopic hysterectomy Status post bilateral salpingectomy Current every day nicotine vaping documented in this encounter [facility] HealthcareEvaluation note* Diagnosis Encounter for gynecological examination (general) (routine) with abnormal findings- Primary Stress incontinence Female stress incontinence History of robot-assisted laparoscopic hysterectomy Screening breast examination Other screening breast examination Low libido documented in this encounter [facility] course Narrative No data available for this section [facility] No data available for this section [facility] No data available for this section [facility] Summary Purpose Family History No Family History Records Found No data available for this section No data available for this section No data available for this section No data available for this section No data available for this section No Family History Records FoundNo Family History Records FoundNo Family History Records FoundNo Family History Records FoundNo Family History Records FoundNo Family History Records FoundNo Family History Records FoundNo Family History Records FoundNo Family History Records FoundNo Family History Records FoundNo Family History Records Found No data available for this section No Family History Records Found No data available for this section No Family History Records FoundNo Family History Records FoundNo Family History Records FoundNo Family History Records FoundNo Family History Records FoundNo Family History Records FoundNo Family History Records Found No data available for this section No Family History Records Found No data available for this section No data available for this section No Family History Records FoundNo Family History Records Found Advance Directives No Advanced Directives Records FoundNo Advanced Directives Records FoundNo Advanced Directives Records FoundNo Advanced Directives Records FoundNo Advanced Directives Records FoundNo Advanced Directives Records FoundNo Advanced Directives Records FoundNo Advanced Directives Records FoundNo Advanced Directives Records FoundNo Advanced Directives Records FoundNo Advanced Directives Records FoundNo Advanced Directives Records FoundNo Advanced Directives Records FoundNo Advanced Directives Records FoundNo Advanced Directives Records FoundNo Advanced Directives Records FoundNo Advanced Directives Records FoundNo Advanced Directives Records FoundNo Advanced Directives Records FoundNo Advanced Directives Records FoundNo Advanced Directives Records FoundNo Advanced Directives Records FoundNo Advanced Directives Records Found Additional Source Comments INFORMATION SOURCE (unrecogn ized section and content) DATE CREATED AUTHOR 06/24/2021 [facility] DATE CREATED AUTHOR AUTHOR'S ORGANIZ ATION 09/14/2023 [facility] DATE CREATED AUTHOR AUTHOR'S ORGANIZ ATION 09/15/2023 [facility] DATE CREATED AUTHOR AUTHOR'S ORGANIZ ATION 11/11/2023 [facility] DATE CREATED AUTHOR AUTHOR'S ORGANIZ ATION 11/12/2023 [facility] DATE CREATED AUTHOR AUTHOR'S ORGANIZ ATION 12/25/2023 [facility] DATE CREATED AUTHOR AUTHOR'S ORGANIZ ATION 12/26/2023 [facility] DATE CREATED AUTHOR AUTHOR'S ORGANIZ ATION 12/31/2023 [facility] DATE CREATED AUTHOR AUTHOR'S ORGANIZ ATION 01/09/2024 [facility] DATE CREATED AUTHOR AUTHOR'S ORGANIZ ATION 07/29/2024 [facility] DATE CREATED AUTHOR AUTHOR'S ORGANIZ ATION 12/03/2024 [facility] Patient Care team informatio n (unrecognized section and content) Family Life Counselor Relationship Specialty Start Date End Date Nathaniel Esparza MD [address] [place] [address] PCP - General Family Medicine 09/17/23 Family Life Counselor Relationship Specialty Start Date End Date Nathaniel Esparza MD [address] [place] [address] PCP - General Family Medicine 09/17/23 Family Life Counselor Relationship Specialty Start Date End Date Nathaniel Esparza MD [address], [place] [id number] PCP - General Family Medicine 09/17/23 Family Life Counselor Relationship Specialty Start Date End Date Nathaniel Esparza MD [address] [place] [address] PCP - General Family Medicine 09/17/23 Reason for Visit (unrecogniz ed section and content) Reason Comments Pre-op Visit Patient here for pre -op visit. Patient reports of worsening moderate to severe cramping with her cycles which associated with irregular cycles. Patient has history of bilateral tubal ligation for contraception. Treatment/management options discussed. Patient voiced interest in proceeding with definitive surgical management with hysterectomy. LMP 11/02/23 Reason Comments Post-op Visit Patient is here for 5 week post op she had Robot Assisted Total Laparoscopic Hysterectomy with Bilateral Salpingectomy on 12/24/23 at [facility] due to heavy and painful periods. Patient states that she is healing well and denies any bladder or bowel problems. Does not need RTW note. Admits to pink spotting with wiping, denies any vaginal itching or discharge Reason Comments Annual Exam Patient here for Mary burgess. Patient repots low libido and leaks urine when laughs, coughs or sneezing, wear a panty liner occasionally. FOR RECORDS PERTAINING TO PATIENTS WHO ARE [...] BE BASED ON THE PRIMARY CLINICAL RECORDS. [facility]. provides no warranty or guarantee of the accuracy or completeness of information in this document.
[2024-12-07 19:22] VITALS: BP 126/92; PULSE 96; TEMP 36.7; O2SAT 99; BMI 33.9
--- NOTE | 2024-12-07 20:24 | ED_ITS ---
HPI HPI - General Adult General Chief complaint: Dental/Oral Stated complaint: DENTAL Time Seen by Provider: 12/07/24 19:37 History of Present Illness HPI narrative: Patient is a 29-year-old female with a past medical history of dental caries that presents with complaints of pain to her right lower jaw for 1 day. She denies any trauma. She states that about a month ago she saw a dentist who told her that she needed all of her lower teeth pulled. She has dental anxiety and has been battling with her insurance company to get anesthesia for the procedure. They have denied this and that is why she has not gotten her teeth pulled. A month ago she was placed on amoxicillin and her pain did resolve for a few weeks but then returned last night. She denies fever at home but last night had night sweats and chills. Patient has been using OTC medications and ice without relief of her pain. Related Data Previous Rx's ?Medication ?Instructions ?Recorded nabumetone 750 mg tablet 750 mg PO BID PRN pain #14 t abs 02/17/23 acetaminophen 300 mg-codeine 30 mg 1 tab PO Q6H PRN pa in 5 days #20 05/03/23 tablet tabs cyclobenzaprine 10 mg tablet 10 mg PO TID PRN muscle s pasm #20 05/03/23 tabs amoxicillin 875 mg tablet 875 mg PO BID 7 days #14 tab s 12/07/24 Allergies Allergy/AdvReac Type Severity Reaction Status Date / Time shellfish derived Allergy Severe Anaphylaxis Verified 12/07/24 19:21 morphine Allergy Unknown Hives Verified 12/07/24 19:21 Opioid HPI Opioid Management Most Recent Opioid Data: Last Pain Scale 8 Today, 20:10 Last ED Pain Assessment Today, 20:10 Review of Systems ROS Status of ROS 10 or more systems reviewed and unremark able except as noted in history and below PFSH PFSH Social History Smoking status: Current every day smoker Little interest or pleasure in doing things: not at all Feeling down, depressed, or hopeless: not at all Exam Narrative Exam Narrative: General: No distress, age-appropriate Skin: Warm, dry, no pallor. No rash. Head: Normocephalic, atraumatic. Neck: Supple, tender submandibular area and anterior cervical lymph nodes Eye: Pupils are equal, round and EOMI. No scleral icterus. Ears, Nose, Mouth, and Throat: No nasal mucosal hypertrophy. Oral mucosa is moist, no posterior oropharynx erythema, uvula is mid-line. Multiple dental caries to the lower teeth. The lower right molar is broken and has dental caries. No visible abscess. Cardiovascular: Regular Rate and Rhythm without murmur, gallop or rub. Respiratory: No accessory muscle use or respiratory distress. Lungs are clear to auscultation, no wheezing, rales or rhonchi Musculoskeletal: Full ROM of all extremities, no calf or popliteal tenderness Neurological: A&O x4. No cranial nerve dysfunction observed. No truncal ataxia. Moves all extremities. Sensation intact. Psychiatric: Cooperative and interactive. Normal mood and affect. Constitutional Vital Signs, click to edit/add: Last Vital Signs Temp 98.0 F 12/07/24 19:22 Pulse 96 H 12/07/24 19:22 Resp 18 12/07/24 19:22 BP 126/92 H 12/07/24 19:22 Pulse Ox 99 12/07/24 19:22 O2 Del Method Room Air 12/07/24 19:22 Course Vital Signs Vital signs: Vital Signs Temperature 98.0 F 12/07/24 19:22 Pulse Rate 96 H 12/07/24 19:22 Respiratory Rate 18 12/07/24 19:22 Blood Pressure 126/92 H 12/07/24 19:22 Pulse Oximetry 99 12/07/24 19:22 Oxygen Delivery Method Room Air 12/07/24 19:22 Temperature 98.0 F 12/07/24 19:22 Pulse Rate 96 H 12/07/24 19:22 Respiratory Rate 18 12/07/24 19:22 Blood Pressure 126/92 H 12/07/24 19:22 Pulse Oximetry 99 12/07/24 19:22 Oxygen Delivery Method Room Air 12/07/24 19:22 Medical Decision Making MDM Narrative Medical decision making narrative: This is a 29-year-old female that presents with complaints of right lower jaw pain that is been present for 1 day. Patient denies fever, but has had night sweats and chills. She did have an episode of this about a month ago and saw her dentist who informed her she needs all her bottom teeth pulled. She was placed on amoxicillin and her pain resolved for about few weeks until last night. On arrival patient appears uncomfortable, has ice pack on her right face. Temperature is afebrile at 98 ?F. Vitals are hemodynamically stable. Will apply dental anesthesia paste and give her her first dose of antibiotic here, amoxicillin 875 mg. I did send a prescription of amoxicillin 875 mg twice daily x 7 days to her pharmacy. She is planning to call a new dentist in the morning and possibly buy a [id number] to get her teeth removed. Return precautions discussed and patient was discharged in stable condition, pain control, with plans for close follow-up with dentist. Differential Diagnosis Differential Diagnosis: Dental abscess, jaw cellulitis Discharge Plan Discharge Chief Complaint: Dental/Oral Clinical Impression: Dental abscess Patient Disposition: Home, Self-Care Time of Disposition Decision: 20:10 Condition: Good Mode of Transportation: Private Vehicle Prescriptions / Home Meds: New amoxicillin 875 mg tablet 875 mg PO BID 7 Days Qty: 14 0RF No Action acetaminophen-codeine 300-30 mg tablet 1 tab PO Q6H PRN (Reason: pain) 5 Days Qty: 20 0RF cyclobenzaprine 10 mg tablet 10 mg PO TID PRN (Reason: muscle spasm) Qty: 20 0RF nabumetone 750 mg tablet 750 mg PO BID PRN (Reason: pain) Qty: 14 0RF Print Language: Kyrgyz Instructions: Dental Abscess (ED) Referrals: SHANTEL GATES [Primary Care Provider, PERSONNEL REPRESENTATIVE] - 1 week Discharge Date/Time: 12/07/24 20:44
[2024-12-07] MEDS: AMOXICILLIN 500 MG CAPSULE 1000 MG PO (20:35)
[2024-12-07] MEDS: BENZOCAINE 30 ML, lidocaine HCL 15 ML MM (20:35)
== END 2024-12-07 20:44 | disposition home or self-care (01) ==
PROVIDERS: Emergency Provider Emergency Medicine; PCP Nurse Practitioner
DX: K04.7 Periapical abscess without sinus (principal); F17.200 Nicotine dependence, unspecified, uncomplicated; K02.9 Dental caries, unspecified
CPT/HCPCS: 99283